=== PATIENT | female | born 1935 | race Caucasian/White ===

== ENCOUNTER 2016-09-02 16:40 | Inpatient (IN) | payer MEDICARE ==
[2016-09-02] MEDS ORDERED: Diltiazem DRIP* 100 MG/100 ML ADDV.BAG IVPB ONE ×3 (17:18→19:06)
[2016-09-02] MEDS ORDERED: Diltiazem IV* 5 MG/ML 5 ML VIAL (for loading dose/IV Push) (25 MG) IV SLOW PU ONE ×2 (17:18→18:58)
[2016-09-02 17:32] LABS: Hematocrit 43 % (35-47); Hemoglobin 13.7 g/dl (12.0-16.0); Mean Corpuscular HGB Conc 32 g/dl (31-36); Mean Corpuscular Hemoglobin 28 pg (27-31); Mean Corpuscular Volume 89 fL (80-97); Mean Platelet Volume 9 um3 (7.4-10.4); Red Blood Count 4.81 10^6/ul (4.0-5.4); Red Cell Distribution Width 16 % (10.5-15); White Blood Count 12.2 10^3/ul (3.5-10.8)
[2016-09-02 17:52] LABS: Albumin 3.8 g/dL (3.2-5.2); BUN/Creatinine Ratio 15.5 (8-20); Calcium 9.7 mg/dL (8.6-10.3); EGFR African American 36.1 (>60); EGFR Non-African American 28.1 (>60); Globulin 2.6 g/dL (2-4); Potassium 4.8 mmol/L (3.5-5.0); Total Bilirubin 0.7 mg/dL (0.2-1.0); Total Protein 6.4 g/dL (6.4-8.9)
--- NOTE | 2016-09-02 17:53 | RAD ---
INDICATION: Chest pain COMPARISON: Most recent chest x-ray dated June 17, 2016 TECHNIQUE: Single AP portable view of the chest was obtained. FINDINGS: Image quality is compromised due to the relative inferiority of a portable chest x-ray. There is mild cardiomegaly that appears advanced when compared to the most recent chest x-ray. There are densities obscuring the bilateral lung bases and causing left bibasilar costophrenic angle blunting. Pulmonary vasculature is engorged and indistinct. Visualized bones are normal for the patient's age. IMPRESSION: Chest x-ray findings are most compatible with exacerbation of congestive heart failure with likely bibasilar pleural effusions.
[2016-09-02 17:55] LABS: Troponin I 0.03 ng/mL (<0.04)
[2016-09-02] MEDS ORDERED: Metoprolol Tartrate IV* 1 MG/ML 5 ML VIAL IV ONE (19:06)
[2016-09-02] MEDS ORDERED: Amiodarone TAB* 200 MG PO ONE (19:16)
[2016-09-02] MEDS ORDERED: LORazepam TAB(*) 1 MG PO PRN (19:19)
[2016-09-02] MEDS ORDERED: HYDROcodone/ACETAMIN 5-325 MG* 1 TAB PO PRN (19:19)
[2016-09-02] MEDS ORDERED: Albuterol HFA INHALER* 8 gm MDI INH PRN (19:19)
[2016-09-02] MEDS ORDERED: Mometasone 220 MCG MDI INH PRN (19:19)
[2016-09-02] MEDS ORDERED: Furosemide IV* 10 MG/ML 10 ML VIAL (100 MG) IV ONE (19:26)
[2016-09-02] MEDS ORDERED: Metoprolol Tartrate IV* 1 MG/ML 5 ML VIAL IV PRN (19:42)
[2016-09-02] MEDS ORDERED: Metoprolol Tartrate IV* 1 MG/ML 5 ML VIAL ONE (19:55)
[2016-09-02 19:57] LABS: Magnesium 2.5 mg/dL (1.9-2.7)
[2016-09-02] MEDS: Magnesium Oxide TAB* 400 MG PO SCH (19:57)
[2016-09-02] MEDS: Ferrous Sulfate TAB* 325 MG PO SCH (19:58)
[2016-09-02 20:04] LABS: TSH (Thyroid Stimulating Horm) 7.18 mcIU/mL (0.34-5.60)
[2016-09-02 21:17] LABS: T4 10.87 g/dL (6.09-12.23)
[2016-09-02 21:26] LABS: Free T4 2.07 ng/dL (0.61-1.12); Total T3 0.55 ng/mL (0.87-1.78)
[2016-09-02] MEDS: buPROPion TAB* 75 MG PO SCH (21:55)
[2016-09-02] MEDS: Calcium Carbonate TAB* 1250 MG (CALCIUM 500 MG) PO SCH (21:55)
[2016-09-02] MEDS: Rivaroxaban TAB(*) 15 MG PO SCH (21:55)
[2016-09-02] MEDS ORDERED: Polyethylene Glycol 3350* 17 GM PACKET PO PRN (22:44)
[2016-09-03] MEDS ORDERED: Digoxin IV* 0.5 MG/2 ML AMP (0.25 MG/ML) IV SLOW PU ONE (00:24)
--- NOTE | 2016-09-03 01:14 | HP ---
MEDICINE HISTORY AND PHYSICAL: DATE OF ADMISSION: 09/02/16 ATTENDING PHYSICIAN: Dr. Joanne Nuñez *(as dictated by Joaquin Villegas, SHITAL) CONSULTING PHYSICIANS: Ke Abraham MD, and Dr. Winn, Cardiology. PRIMARY CARE PHYSICIAN: Dr. Dasilva. CHIEF COMPLAINT: Atrial fibrillation with RVR, sent by Dr. Abraham. HISTORY OF PRESENT ILLNESS: Ms. Opal Ramon is an 81-year-old female with a past medical history of paroxysmal atrial fibrillation, coronary artery disease , aortic stenosis, tachy-jayro syndrome, and COPD, who presents to the ED today from Dr. Abraham's office. The patient reports that she has experienced approximately 1 week of resting heartbeat, arrhythmias, and trouble breathing. The patient denies any chest pain, but states that she has had an ongoing issue with controlling her atrial fibrillation, although she has been approximately 3- 1/2 months without having to come to the hospital. The patient is on amiodarone , which has been under dosing adjustments due to the patient's intolerance of the medication. She was previously here at [facility] in May 2016 with a similar presentation of atrial fibrillation. She states that when she was discharged, at one point she was on amiodarone 100 mg 3 days a week, but has been increased to 100 mg daily, but does not know when this last increase took place. The patient during her last admission did not require cardioversion because she converted on her own. The patient denies any recent illness, fever, chills. She denies chest pain. She denies cough, hemoptysis. She denies any abdominal pain, nausea, vomiting, or diarrhea. She does report that she had a recent injury to her right flank where she twisted and had a fall behind her couch approximately 7 to 10 days ago. She reports that she has bruised ribs and that it was formally painful to take a deep breath, but is now better. She was treating the injury with [place] and lidocaine patches, but reports that as of recently the pain has been greatly improved and has not required her to use lidocaine patches. She also reports constipation from the [place]. She denies any dysuria, focal weakness, sensory loss, visual, hearing, or swallowing complaints. She denies any joint pain, muscle pain, skin rashes, or lesions. She is concerned because she states that she put on approximately 4 pounds over the past week and does report new bilateral lower extremity edema. In the ED, the patient was given a diltiazem bolus of 20 mg, was started on a drip at 5 mg, was titrated up to as high as 50 mg and was referred to the hospitalist for further evaluation. PAST MEDICAL HISTORY: Includes: 1. Paroxysmal atrial fibrillation. 2. History of tachy-jayro syndrome. 3. Coronary artery disease status post bypass and history of PCI. 4. Aortic stenosis. 5. History of mitral regurgitation. 6. Dynamic outflow tract obstruction. 7. History of paroxysmal atrial arrhythmias. 8. COPD, on oxygen at bedtime. 9. Hyperlipidemia. 10. Depression. 11. Anxiety. 12. Hypothyroidism. 13. History of compression fractures. 14. Osteoporosis. HOME MEDICATIONS: 1. Lorazepam 1 mg daily p.r.n. anxiety. 2. Calcium 500 mg b.i.d. 3. [place] 2 tabs q.4 hours p.r.n. 4. Boniva 150 mg monthly. 5. Wellbutrin 75 mg b.i.d. 6. Synthroid 100 mcg q.a.m. 7. Crestor 5 mg daily. 8. Aspirin 81 mg daily. 9. Potassium chloride 40 mEq daily. 10. Rivaroxaban 50 mg in the evening. 11. Magnesium oxide 800 mg q.p.m. 12. Amiodarone 100 mg daily. 13. Furosemide 40 mg weekly. 14. Flovent 2 puffs inhaled daily p.r.n. 15. Albuterol 2 puffs inhaled daily p.r.n. 16. Ferrous sulfate 325 mg b.i.d. 17. Amlodipine 2.5 mg daily. 18. Valsartan 20 mg daily. ALLERGIES: Include CLOPIDOGREL, PENICILLIN, TICLOPIDINE, and DICLOFENAC. FAMILY HISTORY: The patient reports that her mother in her 50's through dementia and father in his 80's from prostate cancer. The patient lost her son over a year ago from an accident. SOCIAL HISTORY: The patient is a former smoker, she quit smoking approximately 30 years ago. She lives at home independently at this time. She states that during most of the year she lives in her [place] house with her daughter, but during the winter months she lives in an apartment by herself. She is currently in this apartment by herself and she is independent of her ADLs. She has 4 children. Her daughter, Rosetta is the primary surrogate decision maker. REVIEW OF SYSTEMS: A 14-point review of systems was completed. All pertinent positives and negatives are included in the HPI. All those not mentioned are negative. PHYSICAL EXAMINATION GENERAL: Ms. Ramon is an 81-year-old female, who is resting in the ED stretcher, in no acute distress. She is alert, cooperative, and very pleasant. VITAL SIGNS: Temperature is 97.9, heart rate 124, respiratory rate 16, blood pressure 122/92, and O2 saturation is 95% on 2 L nasal canula. HEENT: Head is atraumatic, normocephalic. Face is symmetrical. Pupils are equal, round, and reactive to light. Sclerae are anicteric. External ears and nose are normal. Oral mucosa appears moist. There is no oropharyngeal erythema. NECK: Supple. No JVD noted. No lymphadenopathy noted. CARDIAC: Irregularly irregular rate and rhythm. Rate is very rapid. There is a systolic murmur noted most prominently in the left sternal border. EXTREMITIES: The patient has 2+ lower extremity edema. Distal pulses are 2+ bilaterally. RESPIRATORY: Lungs are clear to auscultation, though there are fine crackles in the bases. Breath sounds are diminished. ABDOMEN: Soft, nontender, nondistended. MUSCULOSKELETAL: There is no clubbing or cyanosis. The patient has full range of motion. SKIN: Appears grossly intact. NEURO: Cranial nerves II through XII are grossly intact with no focal deficits. The patient is able to move all extremities. Sensation is intact to light touch in lower extremities. PSYCH: She is alert and oriented x3. Affect is appropriate. LABORATORY DATA AND DIAGNOSTIC STUDIES: CBC: WBC 12.2, hemoglobin 13.7, hematocrit 43, platelet count 406, INR 1.86, PTT 37.6. CMP: Sodium 133, potassium 4.8, chloride 98, carbon dioxide 28, BUN 27, creatinine 1.74, glucose 103, lactic acid 1.3, calcium 9.7, magnesium 2.5, total bilirubin 0.7, AST 18, ALT 18, alk phos 65, total CK 148, CK-MB 5.5, myoglobin 133.6, troponin 0.03, BNP 956, albumin 3.8. EKG shows rapid atrial fibrillation with a rate of 156. Chest x-ray shows findings most compatible with exacerbation of congestive heart failure, likely bibasilar pleural effusions. Old medical records were reviewed. ASSESSMENT AND PLAN: Ms. Rmaon is an 81-year-old female with a past medical history of atrial fibrillation, coronary artery disease, tachy-jayro syndrome and chronic obstructive pulmonary disease, who presents today with atrial fibrillation with rapid ventricular response and what appears to be mild congestive heart failure. She will be admitted to the telemetry floor with the plan as follows: 1. Atrial fibrillation with rapid ventricular response. I did speak with Dr. Winn, who stated that Dr. Abraham dictated a note in Med End. I was able to obtain this note; however, I could not see an assessment and plan, but per my discussion with Dr. Winn and Dr. Nuñez, the patient will be given an additional dose of amiodarone 100 mg and she is currently on 100 mg. We will then increase the dose to 100 mg b.i.d. She will be n.p.o. for expected cardioversion in the morning. At this point in time, the patient has not responded well to diltiazem and it appears from her history that the patient has a history of bradycardia with diltiazem. As part of the side effects, we will discontinue the diltiazem and put the patient on p.r.n. Lopressor. I have already given her one dose of Lopressor here in the ED with good effect. The patient's heart rate has been sustained in the 110s. If necessary, we can also add on digoxin for the patient. The patient will be admitted to telemetry and we will also give her Lasix as well, as she is short of breath and her chest x- ray shows congestion. She also has lower extremity edema that is new. I did not see in Dr. Abraham's notes that the patient recently had an echocardiogram, so I will also go ahead and order an echocardiogram for tomorrow as well. We will continue her Xarelto, magnesium and potassium. 2. Suspect congestive heart failure. We will maintain the patient on daily weights and strict I's and O's. We will give her Lasix this evening and tomorrow and monitor her progress. Obtain echocardiogram. 3. Mild leukocytosis. The patient denies any recent illness. Chest x-ray does not appear to show anything except for acute infiltrates. The patient is afebrile, does not have a cough. I suspect this may be a little chemo reaction to her atrial fibrillation and the stress on her body. We will recheck a CBC in the morning, continue to monitor closely. 4. Acute kidney injury. The patient has a small bump in her creatinine. She does appear to have chronic kidney disease, but her baseline appears to be around 1.00 to 1.29. She is currently 1.74. We will go ahead and hold her valsartan at this time. We are closely monitoring her renal function and she is receiving p.r.n. metoprolol for heart rate reduction. We will closely monitor her renal function. If this does not improve, we will have to continue to renally dose her medications and consider if Xarelto is a good medication for this patient given her renal function. 5. Chronic obstructive pulmonary disease. Continue p.r.n. albuterol. The patient wears oxygen at night, which we will continue. 6. History of hypertension. As previously stated, we will hold her valsartan and given her renal function, we will also hold her amlodipine currently as she is receiving IV Lopressor. 7. Coronary artery disease status post bypass and stenting. Continue aspirin and Xarelto. 8. Hyperlipidemia. Continue statins. 9. Depression. Continue bupropion. 10. Anxiety. Continue p.r.n. lorazepam. Provide supportive care. 11. Hypothyroidism. We will check TSH. In the meantime, we will continue levothyroxine. 12. Rib pain. Continue p.r.n. [place]. 13. FEN. The patient is ordered a heart healthy and no caffeine diet. She will be n.p.o. after midnight for potential cardioversion. 14. DVT prophylaxis. Continue the patient's home Xarelto. 15. Code status. She is currently a full code. I did have an in-depth discussion with the patient and her 2 daughters regarding her code status. At this time, they were unable to make a conclusive decision, but it appears that they are leaning towards a DNR/DNI. They were given the MOLST form and they state that they will read over it and discuss it further. TIME SPENT: Time spent on this admission was approximately 60 minutes, more than half that time was spent [id number] with the patient and her family obtaining history and physical, performing physical examination, and reviewing the plan of care. Plan of care was also reviewed with my attending, Dr. Nñuez, who is in agreement. JOAQUIN VILLEGAS NP CC: Dr. Vidya MD; Dr. Abraham * [id number]/CPS #: [id number] MTDShorty
[2016-09-03] MEDS: Levothyroxine TAB* 100 MCG TAB PO SCH (05:46)
[2016-09-03 06:09] LABS: Hematocrit 42 % (35-47); Hemoglobin 13.4 g/dl (12.0-16.0); Mean Corpuscular HGB Conc 32 g/dl (31-36); Mean Corpuscular Hemoglobin 29 pg (27-31); Mean Corpuscular Volume 90 fL (80-97); Mean Platelet Volume 8 um3 (7.4-10.4); Red Blood Count 4.71 10^6/ul (4.0-5.4); Red Cell Distribution Width 15 % (10.5-15); White Blood Count 10.7 10^3/ul (3.5-10.8)
[2016-09-03 06:20] LABS: BUN/Creatinine Ratio 14.6 (8-20); Calcium 9.1 mg/dL (8.6-10.3); EGFR African American 36.8 (>60); EGFR Non-African American 28.7 (>60); Potassium 4.2 mmol/L (3.5-5.0)
[2016-09-03] MEDS ORDERED: NS 0.9% 1000 ML* 1,000 ML IV SCH ×2 (08:15→13:00)
[2016-09-03] MEDS: Amiodarone TAB* 200 MG PO SCH ×2 (08:37→20:33)
[2016-09-03] MEDS: Atorvastatin* 10 MG TAB PO SCH (08:37)
[2016-09-03] MEDS: buPROPion TAB* 75 MG PO SCH ×2 (08:37→20:33)
[2016-09-03] MEDS: Ferrous Sulfate TAB* 325 MG PO SCH ×2 (08:37→20:33)
[2016-09-03] MEDS: Potassium Chlor TAB* 20 MEQ TAB.ER PO SCH (08:37)
[2016-09-03] MEDS: Aspirin EC Low Dose* 81 MG TAB.EC PO SCH (08:37)
[2016-09-03] MEDS: Calcium Carbonate TAB* 1250 MG (CALCIUM 500 MG) PO SCH ×2 (08:37→20:33)
[2016-09-03] MEDS ORDERED: Furosemide IV* 10 MG/ML 10 ML VIAL (100 MG) IV ONE (09:00)
[2016-09-03] MEDS ORDERED: fentaNYL* 50 MCG/ML 2 ML VIAL (100 MCG VIAL) ONE (09:56)
[2016-09-03] MEDS ORDERED: Midazolam* 1 MG/ML 5 ML VIAL (5 MG) ONE (09:56)
[2016-09-03] MEDS ORDERED: Naloxone* 0.4 MG/ML 1 ML VIAL ONE (09:57)
[2016-09-03] MEDS ORDERED: Flumazenil* 0.1 MG/ML 5 ML MDV ONE (09:57)
--- NOTE | 2016-09-03 10:32 | PN ---
Subjective Date of Service: 09/03/16 Interval History: Patient seen and examined at bedside. She reports improvement in breathing and has noticed that she has better rate control. Denies CP, increased SOB, abd pain , n/v. Plan for cardioversion this AM. No nursing concerns at this time. Telemetry: Atrial fibrillation 110s-120s Past Medical History: Unchanged from Admission Objective Active Medications: Acetaminophen/Hydrocodone Bitart (Oak 5-325 Tab*) 2 tab PO Q4H PRN PRN Reason: PAIN Albuterol (Ventolin Hfa Inhaler*) 2 puff INH DAILY PRN PRN Reason: SHORTNESS OF BREATH Amiodarone HCl (Cordarone Tab*) 100 mg PO BID [facility] Last Admin: 09/03/16 08:37 Dose: 100 mg Aspirin (Aspirin Ec Low Dose*) 81 mg PO DAILY [facility] Last Admin: 09/03/16 08:37 Dose: 81 mg Atorvastatin Calcium (Lipitor*) 10 mg PO DAILY [facility] PRN Reason: Protocol Last Admin: 09/03/16 08:37 Dose: 10 mg Bupropion HCl (Wellbutrin Tab*) 75 mg PO BID [facility] Last Admin: 09/03/16 08:37 Dose: 75 mg Calcium Carbonate (Calcium Carbonate Tab*) 1,250 mg PO BID [facility] Last Admin: 09/03/16 08:37 Dose: 1,250 mg Ferrous Sulfate (Ferrous Sulfate Tab*) 325 mg PO BID [facility] Last Admin: 09/03/16 08:37 Dose: 325 mg Sodium Chloride (Ns 0.9% 1000 Ml*) 1,000 mls @ 100 mls/hr IV PER RATE [facility] Last Admin: 09/03/16 08:41 Dose: 100 mls/hr Levothyroxine Sodium (Synthroid Tab*) 100 mcg PO 0600 [facility] Last Admin: 09/03/16 05:46 Dose: 100 mcg Lorazepam (Ativan Tab(*)) 1 mg PO DAILY PRN PRN Reason: ANXIETY Magnesium Oxide (Magox 400 Tab*) 800 mg PO QPM [facility] Last Admin: 09/02/16 19:57 Dose: 800 mg Metoprolol Tartrate (Lopressor Iv*) 5 mg IV Q4H PRN PRN Reason: BLOOD PRESSURE Last Admin: 09/02/16 21:54 Dose: 5 mg Mometasone Furoate (Asmanex 220 Mcg Mdi *) 2 puff INH BID PRN PRN Reason: SHORTNESS OF BREATH Polyethylene Glycol/Electrolytes (Miralax*) 17 gm PO DAILY PRN PRN Reason: CONSTIPATION Last Admin: 09/02/16 23:36 Dose: 17 gm Potassium Chloride (Klor Con Er Tab*) 40 meq PO DAILY [facility] Last Admin: 09/03/16 08:37 Dose: 40 meq Rivaroxaban (Xarelto(*)) 15 mg PO 1700 [facility] Last Admin: 09/02/16 21:55 Dose: 15 mg Vital Signs 09/02/16 09/02/16 09/02/16 20:30 20:31 20:47 Temperature Pulse Rate 124 Respiratory 16 26 Rate Blood Pressure 97/85 (mmHg) O2 Sat by Pulse 96 Oximetry 09/02/16 09/02/16 09/02/16 21:15 22:32 22:35 Temperature 97.6 F Pulse Rate 142 138 106 Respiratory 18 Rate Blood Pressure 129/82 77/59 80/59 (mmHg) O2 Sat by Pulse 100 Oximetry 09/02/16 09/02/16 09/03/16 22:41 22:46 00:00 Temperature Pulse Rate Respiratory 16 18 Rate Blood Pressure (mmHg) O2 Sat by Pulse 95 Oximetry 09/03/16 09/03/16 09/03/16 00:12 01:15 03:41 Temperature 98.1 F 97.8 F Pulse Rate 73 122 99 Respiratory 16 16 Rate Blood Pressure 103/57 111/79 (mmHg) O2 Sat by Pulse 96 98 Oximetry 09/03/16 09/03/16 07:10 07:45 Temperature 98.2 F Pulse Rate 103 Respiratory 16 16 Rate Blood Pressure 114/71 (mmHg) O2 Sat by Pulse 98 Oximetry Oxygen Devices in Use Now: Nasal Cannula - 2L Appearance: Older female patient, sitting up in bed, in NAD Eyes: PERRLA Ears/Nose/Mouth/Throat: Mucous Membranes Moist Neck: NL Appearance and Movements; NL JVP Respiratory: Symmetrical Chest Expansion and Respiratory Effort, Clear to Auscultation - diminished breath sounds Cardiovascular: - - irregularly irregular rhythm, systolic murmur Abdominal: NL Sounds; No Tenderness; No Distention Extremities: - - BLE edema 1+ Skin: No Rash or Ulcers Neurological: Alert and Oriented x 3 Lines/Tubes/Other Access: Clean, Dry and Intact Peripheral IV Nutrition: Taking PO's Result Diagrams: 09/03/16 05:39 09/03/16 05:39 Assess/Plan/Problems-Billing Assessment: Ms. Ramon is an 81 yo female with a PMH of PAF, CAD, tachy-jayro syndrome, , MR, COPD, HTN, HLD, depression, anxiety, and hypothyroidism who was referred by her meeting/event planner to the ED on 09/02/16 for atrial fibrillation with RVR and CHF. - Patient Problems (1) Atrial fibrillation with RVR Code(s): I48.91 - UNSPECIFIED ATRIAL FIBRILLATION Comment: Better rate control with IV Lopressor Continue amiodarone 100 mg BID Cardioversion today (2) Bilateral lower extremity edema Code(s): R60.0 - LOCALIZED EDEMA Comment: Non-painful, coincides with 4# weight gain over past week. Suspect CHF exacerbation secondary to rapid afib for several days, BNP 956 Echocardiogram pending (3) Leukocytosis Code(s): D72.829 - ELEVATED WHITE BLOOD CELL COUNT, UNSPECIFIED Comment: Mild, now resolved. Suspect leukemoid reaction. (4) Acute kidney injury Code(s): N17.9 - ACUTE KIDNEY FAILURE, UNSPECIFIED Comment: Patient with CKD, creatinine above baseline of 1.00 to 1.29 Hold valsartan and other nephrotoxic medications Renally dose medications (5) Dyslipidemia Code(s): E78.5 - HYPERLIPIDEMIA, UNSPECIFIED Comment: Continue atorvastatin. (6) COPD (chronic obstructive pulmonary disease) Code(s): J44.9 - CHRONIC OBSTRUCTIVE PULMONARY DISEASE, UNSPECIFIED Comment: Stable. Continue PRN albuterol and supplemental O2 per home regimen. (7) HTN (hypertension) Code(s): I10 - ESSENTIAL (PRIMARY) HYPERTENSION Comment: Normotensive with some soft BPs. Hold valsartan with SEVERINO Hold amlodipine while receiving IV Lopressor. (8) Hypothyroidism Code(s): E03.9 - HYPOTHYROIDISM, UNSPECIFIED Comment: TSH and Free T4 both elevated; unclear etiology as patient has been in rapid afib and has had other acute injury recently. Continue current dose of levothyroxine and recommend outpatient follow-up of TSH to determine if dose adjustment is required. (9) Depression Code(s): F32.9 - MAJOR DEPRESSIVE DISORDER, SINGLE EPISODE, UNSPECIFIED Comment: Continue Wellbutrin and supportive care. (10) Anxiety Code(s): F41.9 - ANXIETY DISORDER, UNSPECIFIED Comment: Continue PRN lorazepam and supportive care. (11) DVT prophylaxis Comment: Continue home Xarelto. (12) Full code status Status and Disposition: Inpatient admission.
[2016-09-03 12:32] LABS: PCO2 Arterial 42 mmHg (35-45)
--- NOTE | 2016-09-03 14:05 | CONS ---
CARDIOLOGY CONSULTATION: DATE OF CONSULT: 09/03/16 REASON FOR CONSULT: Atrial fibrillation. CHIEF COMPLAINT: Palpitations and lower extremity edema. HISTORY OF PRESENT ILLNESS: Ms. Ramon is an 81-year-old woman followed by Dr. Ke Abraham. 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 The patient has been on amiodarone for an extended period of time and several months ago, the dose was decreased further, based on Dr. Abraham's notes due to lethargy and imbalance. The patient denies any recent fevers, chills, sweats. She denies any significant alcohol intake. With irregular rhythm, she has noted that she is much more winded with stairs and her leg swelling started to occur after several days. She has had some anorexia. PAST MEDICAL HISTORY: Paroxysmal atrial fibrillation; tachy-jayro syndrome; coronary artery disease; myocardial infarction in 2007, showing a 75% to 90% occlusion of the LAD followed by a 90% lesion in the LAD, insignificant circumflex disease, the right coronary artery is dominant with a 50% to 75% proximal lesion, the patient underwent bypass at that time. She has aortic valve stenosis, mitral insufficiency, dynamic LVOT obstruction; COPD, uses oxygen at night; hypertension; dyslipidemia; hypothyroid disease, long standing ; osteoporosis, compression fractures; kyphoscoliosis; anxiety and depression. PAST SURGICAL HISTORY: Includes knee surgery, 2002; left knee replacement, 2011 ; cataract surgery; broken wrist, 2013; right elbow fracture. MEDICATIONS: Current inpatient medications include: 1. [place]. 2. Ventolin inhaler. 3. Amiodarone increased from 100 mg every other day to 200 mg a day. 4. Aspirin 81 mg a day. 5. Lipitor 10 mg a day. 6. Wellbutrin 75 mg b.i.d. 7. Calcium carbonate 1250 mg b.i.d. 8. Iron sulfate 325 mg b.i.d. 9. Levothyroxine 100 mcg a day (unchanged from admission). 10. Ativan p.r.n. 11. Magnesium oxide 800 mg a day. 12. Lopressor IV p.r.n. 13. Asmanex 2 puffs b.i.d. 14. MiraLAX p.r.n. 15. Potassium chloride 40 mEq a day. 16. Xarelto 15 mg a day. ALLERGIES: She is allergic to VOLTAREN (swelling), TICLID, PENICILLIN (hives), and PLAVIX. FAMILY HISTORY: Significant her mother in her 50s with a diagnosis of melancholia/Alzheimer's. Her father of prostate cancer in his 70s. SOCIAL HISTORY: The patient retired. Has 2 supportive daughters. Lives alone. Stopped smoking in the , rare glass of wine. REVIEW OF SYSTEMS: Significant in that she fell a couple of weeks ago. She said she was reaching backwards and injured the right side of her thorax and she has been taking pain medications for this. She denied fainting or loss of consciousness and said she had a similar accident many years ago when her kids were young and she reached back to the back seat of the car. She has been taking pain medications and since then she has had constipation as well. Review of all systems otherwise negative, see history of present illness. PHYSICAL EXAM: The patient is 5 feet 5 inches, weighs 145 pounds with a BMI of 24. Vitals: Blood pressure 114/71, she is in AFib with rates of 105 to 130, temperature 98.2, oxygen saturation on 2 L nasal cannula 98%. General Appearance: Petite older woman in no acute distress. Kyphoscoliosis noted. Psychologically, calm, cooperative, pleasant. Neurologically, awake, alert, and oriented to person and place. Speech is articulate, follows commands well. No gross motor or sensory deficits on examination in the bed. Skin: Age- appropriate changes, warm and dry without evidence of cyanosis. HEENT: Pupils are equal and round. Mucous membranes moist. Neck without increased JVD. Good carotid pulses without audible bruits. Lungs are clear with good effort. No wheezes, rales, or rhonchi. Coronary: S1, S2, irregularly irregular with a soft systolic murmur in the right upper sternal border. Abdomen: Active bowel sounds, soft, nontender. No hepatosplenomegaly appreciated. Lower extremity showed trace to 1+ edema in the lower legs. DIAGNOSTIC STUDIES/LAB DATA: The patient's 12 lead ECG on admission, 09/02/16, at 1700 confirms atrial fibrillation with a rapid ventricular rate of 156 beats a minute, QRS axis of 0, normal intraventricular conduction time, and subtle ST changes in the lateral leads. Outpatient studies include an echo from 2013 showing dynamic left ventricular outflow tract obstruction, ejection fraction 65%, mild aortic stenosis, mild-to- moderate mitral insufficiency, moderate tricuspid insufficiency, PA pressure 43 mmHg. White count 10.7, hemoglobin 13.4, hematocrit 42, and platelets 320. INR 1.86, PTT of 37.6. Sodium 137, potassium 4.2, chloride 101, bicarb 27, BUN 25, creatinine 1.71, glucose 76. Troponin #1 0.03, troponin #2 0.02, troponin #3 0.02. BNP of 956. TSH 7.18, free T4 2.07, and total T3 0.55. Chest x-ray from 09/02/16 reported as congestive heart failure with bibasilar pleural effusions. IMPRESSION AND PLAN: In summary, Ms. Ramon is an 81-year-old woman with a history of paroxysmal atrial fibrillation. By history, she has been in an atrial fibrillation for a week, likely related to decrease in her amiodarone dose to very low doses several months ago combined with age and chronic obstructive pulmonary disease. The patient states she has been hinduism about taking her Xarelto, so we will plan on electrical cardioversion, her amiodarone dose has been increased already and will continue loading. Her thyroids are mildly off which may be a combination of her underlying thyroid disorder combined with chronic amiodarone use and I will leave management of that to the hospitalist. Further recommendations will be made pending her response to the above treatment. For her constipation, the hospitalists are managing this. For her lower extremity edema which concerns her greatly, I reassured her that this would likely resolve following electrical cardioversion. For her atherosclerotic heart disease, her normal troponins are reassuring and this can be continued to be managed medically with risk factor modification. Her valvular heart disease is noted, there is an inpatient transthoracic echo ordered and we will review once completed. CC: Dr. Cameron Dasilva; Dr. Ke Abraham* [id number]/CPS #: [id number] [facility] CENTERShorty
--- NOTE | 2016-09-03 16:20 | ECHO ---
Patient: DOUGLAS RANDOLPH [facility] Rec#: [id number] : 1935 Date: 09/03/2016 Age: 81y Height: 165.1 cm / 65.0 in Weight: 66.22 kg / 145.9 lbs Sex: F BSA: 1.73 Room#: 450 Admit Date#: 09/02/2016 Type: Inpatient Referring: Loren Roman Reading: Suzanne Marie MD Sole Dyer: Adwoa Wagner CS CC: Cameron Dasilva MD CC: Ke Abraham MD Transthoracic Echocardiogram Indication: CHF BP: 111/79 HR: 64 Rhythm: NSR with PACs Findings History: PAF,CAD s/p PCI,,tachy-jayro,COPD,HLD,depression,hypothyroid. Technical Comments: The study quality is good. Completed at 1400. Left Ventricle: The left ventricular chamber size is decreased. Septal wall hypertrophy is observed. Global left ventricular wall motion and contractility are within normal limits. The estimated ejection fraction is 60-65%. The assessment of diastolic function is non-diagnostic.due to annular calcification and equivicol data. Left Atrium: The left atrium is moderate to severely dilated. Right Ventricle: Moderator Band present. The right ventricular cavity size is normal. The right ventricular global systolic function is normal. Right Atrium: The right atrium is moderate to severely dilated. Aortic Valve: The aortic valve is trileaflet. There is trace to mild aortic regurgitation. There is mild aortic stenosis.Confirmed with 2D images on short axis. Highest aortic valve velocity was acquired with Pedoff in apical position. Mitral Valve: There is mitral annular calcification. Moderate mitral leaflet calcification is visualized. There is moderate to severe mitral regurgitation. There is mild to moderate mitral stenosis. mean gradient 2.5 mmHg, MVA 2.6 cm2. Tricuspid Valve: The tricuspid valve leaflets are mildly thickened. There is moderate to severe tricuspid regurgitation. The tricuspid regurgitant jet is extending to dome (back wall of RA). There is evidence of moderate pulmonary hypertension. There is no tricuspid stenosis. Pulmonic Valve: The pulmonic valve appears normal. There is no evidence of pulmonic regurgitation. There is no pulmonic stenosis. Pericardium: The pericardium appears normal. Aorta: There is mild dilatation of the ascending aorta. There is no dilatation of the aortic arch. There is no dilation of the aortic root. Pulmonary Artery: The main pulmonary artery appears normal. Venous: The inferior vena cava appears normal in size. There is a greater than 50% respiratory change in the inferior vena cava dimension. Conclusions The left ventricular chamber size is decreased. Global left ventricular wall motion and contractility are within normal limits. The estimated ejection fraction is 60-65%. The left atrium is moderate to severely dilated. The right ventricular global systolic function is normal. There is mild aortic stenosis. There is trace to mild aortic regurgitation. There is mild to moderate mitral stenosis. There is moderate to severe mitral regurgitation. There is moderate to severe tricuspid regurgitation. There is evidence of moderate pulmonary hypertension: 55 mmHg. Compared with prior echo of 07/07/16, LVOT obstruction not seen in this study, EF is stable, the degree of MR has increased from mild (pt s/p cardioversion from afib today), the degree of TR has increased from moderate. Otherwise not significantly changed. Measurements Name Value Normal Range RVIDd (AP) 2D 2.7 cm (0.9 - 2.6) RVDdMajor (2D) 3.6 cm (2.2 - 4.4) RAd ISD 4CH 5.8 cm (3.4 - 4.9) RA (A4C)W 4.3 cm (2.9 - 4.6) IVSd (2D) 1.7 cm (0.6 - 1) LVPWd (2D) 1 cm (0.6 - 1) LVIDd (2D) 3 cm (3.6 - 5.4) LVIDs (2D) 1.5 cm - LV FS (2D) 49 % (25 - 45) Aortic Annulus 1.9 cm (1.4 - 2.6) Ao root diameter (2D) 2.3 cm (2.1 - 3.5) Ascending Ao 3.5 cm (2.1 - 3.4) Aortic arch 2.3 cm (1.8 - 3.4) LA dimension (AP) 2D 3.4 cm (2.3 - 3.8) LAd ISD 4CH 5.7 cm (2.9 - 5.3) LA ISD 4CH W 5 cm (2.5 - 4.5) Name Value Normal Range LA ESV SP 4CH (A/L) 72 ml - LA ESV SP 2CH (A/L) 66 ml - LA ESV BP (A/L) 74 ml - LA ESV BP (A/L) index 42.82 ml/m2 - LA ESV SP 4CH (MOD) 67 ml - LA ESV SP 2CH (MOD) 66 ml - Name Value Normal Range MV E-wave Vmax 1.6 m/sec - MV deceleration time 301 msec - MV A-wave Vmax 0.9 m/sec - MV E:A ratio 1.88 ratio - LV septal e' Vmax 0.03 m/sec - LV lateral e' Vmax 0.07 m/sec - LV E:e' septal ratio 53.33 ratio - LV E:e' lateral ratio 22.86 ratio - Name Value Normal Range AV Vmax 2.2 m/sec - AV VTI 43.3 cm - AV peak gradient 19.04 mmHg - AV mean gradient 8.22 mmHg - LVOT diameter 1.5 cm - LVOT Vmax 1.2 m/sec - LVOT VTI 25.3 cm - LVOT peak gradient 6.08 mmHg - LVOT mean gradient 2.65 mmHg - SV LVOT 46 ml - JESI (continuity Vmax) 1 cm2 - JESI (continuity VTI) 1 cm2 - AR PHT 560 msec - Name Value Normal Range MV Vmax 1.7 m/sec - MV VTI 53.7 cm - MV peak gradient 11.17 mmHg - MV mean gradient 2.53 mmHg - MV PHT 84 msec - MVA (PHT) 2.6 cm2 - MVA (continuity VTI) 0.9 cm2 - Name Value Normal Range TR Vmax 3.4 m/sec - TR peak gradient 47 mmHg - RAP 8 mmHg - RVSP 55 mmHg - IVC diameter 2.1 cm - Name Value Normal Range PV Vmax 0.7 m/sec - PV peak gradient 2.02 mmHg -
[2016-09-03] MEDS: Rivaroxaban TAB(*) 15 MG PO SCH (16:44)
[2016-09-03] MEDS: Magnesium Oxide TAB* 400 MG PO SCH (16:44)
--- NOTE | 2016-09-03 21:20 | CARD ---
ELECTRICAL CARDIOVERSION NOTE: DATE OF PROCEDURE: 09/03/15 PROCEDURE: Electrical cardioversion. DIAGNOSIS: Atrial fibrillation. The indications, risks and benefits of the procedure had been discussed with the patient and her daughter and they were amendable to proceeding. A time-out procedure was called. The patient received a total of 3 mg of Versed and 25 mcg of fentanyl. Using AP patches, 120 joules of energy was synchronously delivered across the chest wall with successful cardioversion to sinus rhythm. She is currently in sinus rhythm with PACs at an average rate of 60 beats a minute. She is hemodynamically stable, mild drop in oxygenation which is responding to oxygen. CONCLUSION: Successful electrical cardioversion. See Cardiology consultation for additional details of presentation. CC: Cameron Dasilva MD; Ke Abraham MD* [id number]/CPS #: [id number] MTDD
[2016-09-04] MEDS: Levothyroxine TAB* 100 MCG TAB PO SCH (06:01)
[2016-09-04 06:17] LABS: BUN/Creatinine Ratio 12.8 (8-20); Calcium 8.2 mg/dL (8.6-10.3); EGFR Non-African American 31.9 (>60); Magnesium 2.3 mg/dL (1.9-2.7); Potassium 3.9 mmol/L (3.5-5.0)
[2016-09-04] MEDS: buPROPion TAB* 75 MG PO SCH ×2 (08:14→21:06)
[2016-09-04] MEDS: Aspirin EC Low Dose* 81 MG TAB.EC PO SCH (08:14)
[2016-09-04] MEDS: Potassium Chlor TAB* 20 MEQ TAB.ER PO SCH (08:15)
[2016-09-04] MEDS: Atorvastatin* 10 MG TAB PO SCH (08:15)
[2016-09-04] MEDS: Ferrous Sulfate TAB* 325 MG PO SCH ×2 (08:15→21:06)
[2016-09-04] MEDS: Calcium Carbonate TAB* 1250 MG (CALCIUM 500 MG) PO SCH ×2 (08:15→21:06)
[2016-09-04] MEDS ORDERED: Furosemide IV* 10 MG/ML 2 ML VIAL (20 MG) IV SLOW PU ONE ×2 (08:29→15:46)
[2016-09-04] MEDS ORDERED: Amiodarone TAB* 200 MG PO ONE (09:00)
[2016-09-04] MEDS: Amiodarone TAB* 200 MG PO SCH ×2 (09:16→21:06)
[2016-09-04] MEDS: Magnesium Oxide TAB* 400 MG PO SCH (16:32)
[2016-09-04] MEDS: Rivaroxaban TAB(*) 15 MG PO SCH (16:32)
--- NOTE | 2016-09-04 18:30 | PN ---
Subjective Date of Service: 09/04/16 Interval History: Patient seen and examined at bedside. She reports feeling well today except for dyspnea with exertion. She is concerned that her O2 sat was 80% after ambulating in ken. She denies CP, abd pain, n/v. She received Lasix earlier ( ordered by cardiology) and feels she would benefit from one more evening to monitor recovery. Telemetry: SR 60s Family History: Unchanged from Admission Social History: Unchanged from Admission Past Medical History: Unchanged from Admission Objective Active Medications: Acetaminophen/Hydrocodone Bitart ([place] 5-325 Tab*) 2 tab PO Q4H PRN PRN Reason: PAIN Albuterol (Ventolin Hfa Inhaler*) 2 puff INH DAILY PRN PRN Reason: SHORTNESS OF BREATH Amiodarone HCl (Cordarone Tab*) 100 mg PO BID [facility] Last Admin: 09/04/16 09:16 Dose: 100 mg Aspirin (Aspirin Ec Low Dose*) 81 mg PO DAILY [facility] Last Admin: 09/04/16 08:14 Dose: 81 mg Atorvastatin Calcium (Lipitor*) 10 mg PO DAILY [facility] PRN Reason: Protocol Last Admin: 09/04/16 08:15 Dose: 10 mg Bupropion HCl (Wellbutrin Tab*) 75 mg PO BID [facility] Last Admin: 09/04/16 08:14 Dose: 75 mg Calcium Carbonate (Calcium Carbonate Tab*) 1,250 mg PO BID [facility] Last Admin: 09/04/16 08:15 Dose: 1,250 mg Ferrous Sulfate (Ferrous Sulfate Tab*) 325 mg PO BID [facility] Last Admin: 09/04/16 08:15 Dose: 325 mg Levothyroxine Sodium (Synthroid Tab*) 100 mcg PO 0600 [facility] Last Admin: 09/04/16 06:01 Dose: 100 mcg Lorazepam (Ativan Tab(*)) 1 mg PO DAILY PRN PRN Reason: ANXIETY Magnesium Oxide (Magox 400 Tab*) 800 mg PO QPM [facility] Last Admin: 09/04/16 16:32 Dose: 800 mg Metoprolol Tartrate (Lopressor Iv*) 5 mg IV Q4H PRN PRN Reason: BLOOD PRESSURE Last Admin: 09/02/16 21:54 Dose: 5 mg Mometasone Furoate (Asmanex 220 Mcg Mdi *) 2 puff INH BID PRN PRN Reason: SHORTNESS OF BREATH Last Admin: 09/04/16 10:26 Dose: 2 puff Polyethylene Glycol/Electrolytes (Miralax*) 17 gm PO DAILY PRN PRN Reason: CONSTIPATION Last Admin: 09/02/16 23:36 Dose: 17 gm Potassium Chloride (Klor Con Er Tab*) 40 meq PO DAILY [facility] Last Admin: 09/04/16 08:15 Dose: 40 meq Rivaroxaban (Xarelto(*)) 15 mg PO 1700 [facility] Last Admin: 09/04/16 16:32 Dose: 15 mg Vital Signs 09/03/16 09/03/16 09/04/16 19:48 20:00 00:59 Temperature 97.9 F 97.7 F Pulse Rate 60 62 Respiratory 16 20 Rate Blood Pressure 103/47 121/65 (mmHg) O2 Sat by Pulse 95 95 Oximetry 09/04/16 09/04/16 09/04/16 03:39 07:15 07:54 Temperature 97.8 F 97.5 F Pulse Rate 61 58 Respiratory 20 16 16 Rate Blood Pressure 99/49 123/61 (mmHg) O2 Sat by Pulse 94 97 Oximetry 09/04/16 09/04/16 09/04/16 11:32 11:38 15:19 Temperature 97.5 F 97.9 F Pulse Rate 60 62 Respiratory 22 16 Rate Blood Pressure 129/64 133/71 (mmHg) O2 Sat by Pulse 95 99 Oximetry Oxygen Devices in Use Now: Nasal Cannula - 2L Appearance: Female patient, sitting up in chair, in NAD Eyes: PERRLA Ears/Nose/Mouth/Throat: Mucous Membranes Moist Neck: NL Appearance and Movements; NL JVP Respiratory: Symmetrical Chest Expansion and Respiratory Effort, Clear to Auscultation - bibasilar rales Cardiovascular: RRR - with soft systolic murmur Abdominal: NL Sounds; No Tenderness; No Distention Extremities: No Clubbing, Cyanosis - +1 BLE edema Skin: No Rash or Ulcers Neurological: Alert and Oriented x 3 Lines/Tubes/Other Access: Clean, Dry and Intact Peripheral IV Result Diagrams: 09/03/16 05:39 09/04/16 05:48 Assess/Plan/Problems-Billing Assessment: Ms. Ramon is an 81 yo female with a PMH of PAF, CAD, tachy-jayro syndrome, , MR, COPD, HTN, HLD, depression, anxiety, and hypothyroidism who was referred by her peanut shaker to the ED on 09/02/16 for atrial fibrillation with RVR and CHF. - Patient Problems (1) Atrial fibrillation with RVR Code(s): I48.91 - UNSPECIFIED ATRIAL FIBRILLATION Comment: Now in SR s/p cardioversion Patient given additional dose of amiodarone per cardiology Continue amiodarone 100 mg BID (2) Bilateral lower extremity edema Code(s): R60.0 - LOCALIZED EDEMA Comment: Non-painful, coincides with 4# weight gain over past week. Suspect CHF exacerbation secondary to rapid afib for several days, BNP 956 Echocardiogram shows EF 60-65%, mild , mild to moderate MS, moderate to severe MR and TR, moderate pulmonary HTN. (3) Acute kidney injury Code(s): N17.9 - ACUTE KIDNEY FAILURE, UNSPECIFIED Comment: Patient with CKD, creatinine above baseline of 1.00 to 1.29 Hold valsartan and other nephrotoxic medications Renally dose medications Creatinine clearance 29; recheck tomorrow (4) Dyslipidemia Code(s): E78.5 - HYPERLIPIDEMIA, UNSPECIFIED Comment: Continue atorvastatin. (5) COPD (chronic obstructive pulmonary disease) Code(s): J44.9 - CHRONIC OBSTRUCTIVE PULMONARY DISEASE, UNSPECIFIED Comment: Stable. Continue PRN albuterol and supplemental O2 per home regimen. (6) HTN (hypertension) Code(s): I10 - ESSENTIAL (PRIMARY) HYPERTENSION Comment: Normotensive. Hold valsartan with SEVERINO Restart amlodipine. (7) Hypothyroidism Code(s): E03.9 - HYPOTHYROIDISM, UNSPECIFIED Comment: TSH and Free T4 both elevated; unclear etiology as patient has been in rapid afib and has had other acute injury recently. Continue current dose of levothyroxine and recommend outpatient follow-up of TSH to determine if dose adjustment is required. (8) Depression Code(s): F32.9 - MAJOR DEPRESSIVE DISORDER, SINGLE EPISODE, UNSPECIFIED Comment: Continue Wellbutrin and supportive care. (9) Anxiety Code(s): F41.9 - ANXIETY DISORDER, UNSPECIFIED Comment: Continue PRN lorazepam and supportive care. (10) DVT prophylaxis Comment: Continue home Xarelto. (11) Full code status Status and Disposition: Inpatient admission. Anticipate d/c to home tomorrow.
[2016-09-05] MEDS: Levothyroxine TAB* 100 MCG TAB PO SCH (05:31)
[2016-09-05 06:57] LABS: BUN/Creatinine Ratio 13.3 (8-20); Calcium 8.3 mg/dL (8.6-10.3); EGFR African American 45.3 (>60); EGFR Non-African American 35.2 (>60); Potassium 3.9 mmol/L (3.5-5.0)
--- NOTE | 2016-09-05 07:53 | ED ---
Edwina Ascencio Rebecca, scribed for Alcides Rodriguez MD on 09/02/16 at 1707 . Palpitations / Dysrhythmia - HPI Summary HPI Summary: Pt is an 81 y/o F who presents to ED c/o an arrhythmia that began gradually 1 week ago. Sx have been intermittent since onset. Pt characterizes arrhythmia as palpitations and an undescribable rhythm. Sx aggravated and alleviated by nothing. Additionally c/o SOB. Daughter additionally mentions edema that began last night. Denies CP, dizziness. Previous similar episodes of arrhythmias, but this one is dissimilar. SHx former smoker (40 years ago). Reports recent injury from twisting of the abdomen, resulting in a cartilage injury in the ribs. Pt was referred to [facility] [place]. Abraham while at her routine visit today. Is on Xarelto. IF THERE IS ONE, PLEASE SEE DICTATION BY DR. RODRIGUEZ FOR FURTHER INFORMATION. - History of Current Complaint Chief Complaint: EDDysrhythmPalp Time Seen by Provider: 09/02/16 17:03 Hx Obtained From: Patient Onset/Duration: Gradual Onset, Lasting Weeks - 1 week ago, Still Present Timing: Intermittent Episodes Lasting: Severity Initially: Moderate Severity Currently: Moderate Character: Fast Aggravating: Nothing Alleviating: Nothing Associated Signs & Symptoms: Shortness of Breath Related History: Similar Episode/Dx as - Previous arrhythmias, this one is "different" from others - Allergy/Home Medications Allergies/Adverse Reactions: Allergies Allergy/AdvReac Type Severity Reaction Status Date / Time Diclofenac [From Voltaren] Allergy Severe Swelling Verified 11/06/14 13:41 Of Face,Lips,& Throat Ticlopidine [From Ticlid] Allergy Severe Unknown Verified 11/06/14 13:41 Reaction Details Penicillins Allergy Intermediate Hives Verified 11/06/14 13:41 Clopidogrel [From Plavix] Allergy Unknown Unknown Verified 11/06/14 13:41 Reaction Details Home Medications: Home Medications Albuterol Sulfate [Proair Respiclick] 2 puff INH DAILY PRN 09/02/16 [History Confirmed 09/02/16] Amiodarone HCl [Amiodarone HCl-] 100 mg PO DAILY 09/02/16 [History Confirmed 11/14] Aspirin EC Low Dose* [Ecotrin EC Low Dose*] 81 mg PO DAILY 09/02/16 [History Confirmed 09/02/16] Calcium 500 mg PO BID 09/02/16 [History Confirmed 09/02/16] Ferrous Sulfate TAB* 325 mg PO BID 09/02/16 [History Confirmed 09/02/16] Furosemide TAB* [Lasix TAB*] 40 mg PO WEEKLY 09/02/16 [History Confirmed ] Ibandronate TAB(NF) [Boniva(NF)] 150 mg PO MONTHLY 09/02/16 [History Confirmed 09/02/16] LORazepam TAB(*) [Ativan TAB(*)] 1 mg PO DAILY PRN 09/02/16 [History Confirmed 09/02/16] Levothyroxine TAB* [Synthroid TAB*] 100 mcg PO QAM 09/02/16 [History Confirmed 09/02/16] Rosuvastatin (NF) [Crestor (NF)] 5 mg PO DAILY 09/02/16 [History Confirmed 09/02] Valsartan TAB* [Diovan TAB*] 20 mg PO DAILY 09/02/16 [History Confirmed 09/02/16 ] amLODIPine TAB* [Norvasc TAB*] 2.5 mg PO DAILY 09/02/16 [History Confirmed 09/02] buPROPion TAB* [Wellbutrin TAB*] 75 mg PO BID 09/02/16 [History Confirmed ] PMH/Surg Hx/FS Hx/Imm Hx Endocrine/Hematology History: Reports: Hx Anticoagulant Therapy - xarelto, Hx Thyroid Disease Denies: Hx Blood Disorders, Hx Blood Transfusions, Hx Bone Marrow Disease, Hx Diabetes, Hx Systemic Lupus Erythematosus, Hx Sickle Cell Disease, Hx Anemia , Hx Unexplained Bleeding, Other Endocrine/Hematological Disorders Cardiovascular History: Reports: Hx Angioplasty, Hx Coronary Artery Disease, Hx Hypercholesterolemia, Hx Hypertension, Hx Valvular Heart Disease, Other Cardiovascular Problems/Disorders Denies: Hx Aneurysm, Hx Angina, Hx Auto Implanted Cardiovert Defib, Hx Cardiac Arrest, Hx Cardiomegaly, Hx Congenital Heart Disease, Hx Congestive Heart Failure, Hx Deep Vein Thrombosis, Hx Embolism, Hx Hypotension, Hx Pacemaker/ICD, Hx Peripheral Vascular Disease, Hx Rheumatic Fever, Hx Syncope Respiratory History: Reports: Hx Chronic Obstructive Pulmonary Disease (COPD), Hx Pneumonia, Other Respiratory Problems/Disorders Denies: Hx Asthma, Hx Chronic Bronchitis, Hx Cystic Fibrosis, Hx Lung Cancer , Hx Pleural Effusion, Hx Pulmonary Edema, Hx Pulmonary Embolism, Hx Seasonal Allergies, Hx Sleep Apnea Musculoskeletal History: Reports: Hx Back Problems, Other Musculoskeletal History - compression fracture to thoracic spine Denies: Hx Arthritis, Hx Bursitis, Hx Congenital Bone Abnormalities, Hx Fibromyalgia, Hx Gout, Hx Orthopedic Injury, Hx Osteoporosis, Hx Scoliosis, Hx Tendonitis Sensory History: Reports: Hx Cataracts, Hx Contacts or Glasses, Hx Vision Problem Denies: Hx Eye Injury, Hx Eye Prosthesis, Hx Glaucoma, Hx Legally Blind, Hx Macular Degeneration, Hx Deafness, Hx Hearing Aid, Hx Hearing Problem, Other Sensory Impairments Opthamlomology History: Reports: Hx Cataracts, Hx Contacts or Glasses, Hx Vision Problem Denies: Hx Eye Injury, Hx Eye Prosthesis, Hx Glaucoma, Hx Legally Blind, Hx Macular Degeneration, Other Sensory Impairments Neurological History: Denies: Hx Headaches, Hx Transient Ischemic Attacks (TIA) Psychiatric History: Reports: Hx Anxiety - Cancer History Hx Chemotherapy: No Hx Radiation Therapy: No Hx Palliative Cancer Treatment: No - Surgical History Surgery Procedure, Year, and Place: 2011 LEFT TOTAL KNEE [id number] CARDIAC STENT [id number] 4 CARDIAC STENTS [id number], CABG x1 [place], ROBOTIC CHEST SURGERY 2013 Hx Anesthesia Reactions: No Infectious Disease History: No Infectious Disease History: Reports: Hx Hepatitis - Hepatitis 50 years ago Denies: Hx Clostridium Difficile, Hx Human Immunodeficiency Virus (HIV), Hx of Known/Suspected MRSA, Hx Shingles, Hx Tuberculosis, Hx Known/Suspected VRE, Hx Known/Suspected VRSA, History Other Infectious Disease, Traveled Outside the in Last 30 Days - Family History Known Family History: Negative: Cardiac Disease, Hypertension, Diabetes - Social History Alcohol Use: None Alcohol Amount: 1 GLASS/DAY Substance Use Type: Reports: None Smoking Status (MU): Former Smoker Type: Cigarettes Amount Used/How Often: 1PPD 30 YRS Length of Time of Smoking/Using Tobacco: 40 Have You Smoked in the Last Year: No Review of Systems - ROS Summary Review of Systems Summary: IF THERE IS ONE, PLEASE SEE DICTATION BY DR. RODRIGUEZ FOR FURTHER INFORMATION. Positive: Palpitations. Negative: Chest Pain Positive: Shortness Of Breath, Other Positive: Edema Neurological: Other - Denies dizziness All Other Systems Reviewed And Are Negative: Yes Physical Exam - Summary Physical Exam Summary: GENERAL: Awake, alert, oriented, no acute distress, very pleasant HEAD/FACE: Head is normocephalic, atraumatic EYES: Anicteric sclera, clear conjunctiva ENT: Mucous membranes moist, no erythema, no discharge, no lesions, neck is supple, trachea is midline, no JVD CARDIAC: IRR, tachycardic, S1, S2, no rub, no murmur, no gallop, 2+ radial and pedal pulses bilaterally RESPIRATORY: Clear to auscultation bilaterally with no rales, rhonchi, or wheezes, non-tender ABDOMEN: Bowel sounds positive, no bruit, soft, non-tender, no CVA tenderness EXTREMITIES: Warm, dry, moving all extremities in a grossly normal manner, 1+ bilateral edema NEUROLOGICAL: Mood is appropriate, moving all extremities in a grossly normal manner IF THERE IS ONE, PLEASE SEE DICTATION BY DR. RODRIGUEZ FOR FURTHER INFORMATION. Triage Information Reviewed: Yes Vital Signs On Initial Exam: Initial Vitals Temp Pulse Resp BP Pulse Ox 97.9 F 79 16 122/80 95 09/02/16 16:51 09/02/16 16:51 09/02/16 16:51 09/02/16 16:51 09/02/16 16:51 Vital Signs Reviewed: Yes Diagnostics - Vital Signs Vital Signs Temp Pulse Resp BP Pulse Ox 09/02/16 16:51 97.9 F 79 16 122/80 95 - Laboratory Lab Results: Lab Results 09/02/16 09/02/16 09/02/16 Range/Units 17:15 17:15 17:15 WBC 12.2 H (3.5-10.8) 10^3/ul RBC 4.81 (4.0-5.4) 10^6/ul Hgb 13.7 (12.0-16.0) g/dl Hct 43 (35-47) % MCV 89 (80-97) fL MCH 28 (27-31) pg MCHC 32 (31-36) g/dl RDW 16 H (10.5-15) % Plt Count 406 (150-450) 10^3/ul MPV 9 (7.4-10.4) um3 Neut % (Auto) 82.7 (38-83) % Lymph % (Auto) 11.3 L (25-47) % [place] % (Auto) 4.8 (1-9) % Eos % (Auto) 0.6 (0-6) % Baso % (Auto) 0.6 (0-2) % Absolute Neuts (auto) 10.1 H (1.5-7.7) 10^3/ul Absolute Lymphs (auto) 1.4 (1.0-4.8) 10^3/ul Absolute Monos (auto) 0.6 (0-0.8) 10^3/ul Absolute Eos (auto) 0.1 (0-0.6) 10^3/ul Absolute Basos (auto) 0.1 (0-0.2) 10^3/ul Absolute Nucleated RBC 0.01 10^3/ul Nucleated RBC % 0.1 INR (Anticoag Therapy) 1.86 H (0.89-1.11) APTT 37.6 H (26.0-36.3) seconds Sodium 133 (133-145) mmol/L Potassium 4.8 (3.5-5.0) mmol/L Chloride 98 L (101-111) mmol/L Carbon Dioxide 28 (22-32) mmol/L Anion Gap 7 (2-11) mmol/L BUN 27 H (6-24) mg/dL Creatinine 1.74 H (0.51-0.95) mg/dL Est GFR ( Amer) 36.1 (>60) Est GFR (Non-Af Amer) 28.1 (>60) BUN/Creatinine Ratio 15.5 (8-20) Glucose 103 H (70-100) mg/dL Lactic Acid (0.5-2.0) mmol/L Calcium 9.7 (8.6-10.3) mg/dL Magnesium 2.5 (1.9-2.7) mg/dL Total Bilirubin 0.70 (0.2-1.0) mg/dL AST 18 (13-39) U/L ALT 18 (7-52) U/L Alkaline Phosphatase 65 (34-104) U/L Total Creatine Kinase 148 (10-223) U/L CK-MB (CK-2) 5.5 (0.6-6.3) ng/mL Myoglobin 133.6 H (14.3-65.8) ng/mL Troponin I 0.03 (<0.04) ng/mL B-Natriuretic Peptide ( - 100) pg/mL Total Protein 6.4 (6.4-8.9) g/dL Albumin 3.8 (3.2-5.2) g/dL Globulin 2.6 (2-4) g/dL Albumin/Globulin Ratio 1.5 (1-3) TSH 7.18 H (0.34-5.60) mcIU/mL Free T4 2.07 H (0.61-1.12) ng/dL Thyroxine (T4) 10.87 (6.09-12.23) g/dL Total T3 0.55 L (0.87-1.78) ng/mL 09/02/16 09/02/16 Range/Units 17:15 17:15 WBC (3.5-10.8) 10^3/ul RBC (4.0-5.4) 10^6/ul Hgb (12.0-16.0) g/dl Hct (35-47) % MCV (80-97) fL MCH (27-31) pg MCHC (31-36) g/dl RDW (10.5-15) % Plt Count (150-450) 10^3/ul MPV (7.4-10.4) um3 Neut % (Auto) (38-83) % Lymph % (Auto) (25-47) % [place] % (Auto) (1-9) % Eos % (Auto) (0-6) % Baso % (Auto) (0-2) % Absolute Neuts (auto) (1.5-7.7) 10^3/ul Absolute Lymphs (auto) (1.0-4.8) 10^3/ul Absolute Monos (auto) (0-0.8) 10^3/ul Absolute Eos (auto) (0-0.6) 10^3/ul Absolute Basos (auto) (0-0.2) 10^3/ul Absolute Nucleated RBC 10^3/ul Nucleated RBC % INR (Anticoag Therapy) (0.89-1.11) APTT (26.0-36.3) seconds Sodium (133-145) mmol/L Potassium (3.5-5.0) mmol/L Chloride (101-111) mmol/L Carbon Dioxide (22-32) mmol/L Anion Gap (2-11) mmol/L BUN (6-24) mg/dL Creatinine (0.51-0.95) mg/dL Est GFR ( Amer) (>60) Est GFR (Non-Af Amer) (>60) BUN/Creatinine Ratio (8-20) Glucose (70-100) mg/dL Lactic Acid 1.3 (0.5-2.0) mmol/L Calcium (8.6-10.3) mg/dL Magnesium (1.9-2.7) mg/dL Total Bilirubin (0.2-1.0) mg/dL AST (13-39) U/L ALT (7-52) U/L Alkaline Phosphatase (34-104) U/L Total Creatine Kinase (10-223) U/L CK-MB (CK-2) (0.6-6.3) ng/mL Myoglobin (14.3-65.8) ng/mL Troponin I (<0.04) ng/mL B-Natriuretic Peptide 956 H ( - 100) pg/mL Total Protein (6.4-8.9) g/dL Albumin (3.2-5.2) g/dL Globulin (2-4) g/dL Albumin/Globulin Ratio (1-3) TSH (0.34-5.60) mcIU/mL Free T4 (0.61-1.12) ng/dL Thyroxine (T4) (6.09-12.23) g/dL Total T3 (0.87-1.78) ng/mL Result Diagrams: 09/03/16 05:39 09/05/16 05:46 Lab Statement: Any lab studies that have been ordered have been reviewed, and results considered in the medical decision making process. - Radiology CXR Radiology Interpretation Completed By: Radiologist - Chest x-ray findings are most compatible with exacerbation of congestive heart failure with likely bibasilar pleural effusions. - EKG 1708 Cardiac Rate: Tachycardia - 151 bpm EKG Rhythm: Atrial Fibrillation - A fib with RVR Course/Dx - Diagnoses Provider Diagnoses: Atrial fibrillation with RVR - Physician Notifications Discussed Care Of Patient With: Dr. Jimenez, hospitalist, at 1825 who advised consultation with Dr. Cruz. Dr. Cruz, hospitalist, at 1836, who agrees to admit pt. Discharge - Discharge Plan Condition: Fair Disposition: ADMITTED TO [facility] The documentation as recorded by the Edwina martell Rebecca accurately reflects the service I personally performed and the decisions made by , Alcides Rodriguez MD.
[2016-09-05] MEDS: Amiodarone TAB* 200 MG PO SCH (08:08)
[2016-09-05] MEDS: buPROPion TAB* 75 MG PO SCH (08:14)
[2016-09-05] MEDS: Calcium Carbonate TAB* 1250 MG (CALCIUM 500 MG) PO SCH (08:14)
[2016-09-05] MEDS: Ferrous Sulfate TAB* 325 MG PO SCH (08:14)
[2016-09-05] MEDS: Atorvastatin* 10 MG TAB PO SCH (08:14)
[2016-09-05] MEDS: Potassium Chlor TAB* 20 MEQ TAB.ER PO SCH (08:14)
[2016-09-05] MEDS: Aspirin EC Low Dose* 81 MG TAB.EC PO SCH (08:14)
[2016-09-05 08:21] VITALS: BP 122/83
[2016-09-05] MEDS ORDERED: Furosemide IV* 10 MG/ML 2 ML VIAL (20 MG) IV SLOW PU ONE (08:24)
[2016-09-05] MEDS ORDERED: amLODIPine TAB* 5 MG PO SCH (09:00)
--- NOTE | 2016-09-05 12:11 | DCNOTE ---
Subjective Date of Service: 09/05/16 Interval History: Patient seen and examined at bedside. She denies CP, SOB, abd pain, n/v. She is eager to go home. She reports her legs "look normal again." She does express concern that she still becomes more easily fatigued and SOB with exertion. Patient is able to ambulate in the halls but does feel SOB following the episodes and has had noted decreased O2 sats. She is able to perform ADLs independently but requires more frequent rest. Family History: Unchanged from Admission Social History: Unchanged from Admission Past Medical History: Unchanged from Admission Objective Active Medications: Acetaminophen/Hydrocodone Bitart ([place] 5-325 Tab*) 2 tab PO Q4H PRN PRN Reason: PAIN Last Admin: 09/05/16 05:34 Dose: 2 tab Albuterol (Ventolin Hfa Inhaler*) 2 puff INH DAILY PRN PRN Reason: SHORTNESS OF BREATH Amiodarone HCl (Cordarone Tab*) 100 mg PO BID [facility] Last Admin: 09/05/16 08:08 Dose: 100 mg Amlodipine Besylate (Norvasc Tab*) 2.5 mg PO DAILY [facility] Last Admin: 09/05/16 08:09 Dose: 2.5 mg Aspirin (Aspirin Ec Low Dose*) 81 mg PO DAILY [facility] Last Admin: 09/05/16 08:14 Dose: 81 mg Atorvastatin Calcium (Lipitor*) 10 mg PO DAILY [facility] PRN Reason: Protocol Last Admin: 09/05/16 08:14 Dose: 10 mg Bupropion HCl (Wellbutrin Tab*) 75 mg PO BID [facility] Last Admin: 09/05/16 08:14 Dose: 75 mg Calcium Carbonate (Calcium Carbonate Tab*) 1,250 mg PO BID [facility] Last Admin: 09/05/16 08:14 Dose: 1,250 mg Ferrous Sulfate (Ferrous Sulfate Tab*) 325 mg PO BID [facility] Last Admin: 09/05/16 08:14 Dose: 325 mg Levothyroxine Sodium (Synthroid Tab*) 100 mcg PO 0600 [facility] Last Admin: 09/05/16 05:31 Dose: 100 mcg Lorazepam (Ativan Tab(*)) 1 mg PO DAILY PRN PRN Reason: ANXIETY Magnesium Oxide (Magox 400 Tab*) 800 mg PO QPM [facility] Last Admin: 09/04/16 16:32 Dose: 800 mg Metoprolol Tartrate (Lopressor Iv*) 5 mg IV Q4H PRN PRN Reason: BLOOD PRESSURE Last Admin: 09/02/16 21:54 Dose: 5 mg Mometasone Furoate (Asmanex 220 Mcg Mdi *) 2 puff INH BID PRN PRN Reason: SHORTNESS OF BREATH Last Admin: 09/04/16 10:26 Dose: 2 puff Polyethylene Glycol/Electrolytes (Miralax*) 17 gm PO DAILY PRN PRN Reason: CONSTIPATION Last Admin: 09/02/16 23:36 Dose: 17 gm Potassium Chloride (Klor Con Er Tab*) 40 meq PO DAILY [facility] Last Admin: 09/05/16 08:14 Dose: 40 meq Rivaroxaban (Xarelto(*)) 15 mg PO 1700 [facility] Last Admin: 09/04/16 16:32 Dose: 15 mg Vital Signs 09/04/16 09/04/16 09/04/16 15:19 19:28 19:49 Temperature 97.9 F 97.5 F Pulse Rate 62 64 Respiratory 16 16 16 Rate Blood Pressure 133/71 117/50 (mmHg) O2 Sat by Pulse 99 95 Oximetry 09/04/16 09/05/16 09/05/16 23:54 00:00 05:34 Temperature 98.4 F Pulse Rate 65 Respiratory 20 16 Rate Blood Pressure 134/60 (mmHg) O2 Sat by Pulse 94 94 Oximetry 09/05/16 09/05/16 09/05/16 07:34 08:00 08:15 Temperature 97.8 F Pulse Rate 63 Respiratory 18 18 16 Rate Blood Pressure 122/83 (mmHg) O2 Sat by Pulse 93 Oximetry Oxygen Devices in Use Now: Nasal Cannula - 2L Appearance: Female patient, sitting on edge of bed, in NAD Eyes: PERRLA Ears/Nose/Mouth/Throat: Clear Oropharnyx, Mucous Membranes Moist Neck: NL Appearance and Movements; NL JVP Respiratory: Symmetrical Chest Expansion and Respiratory Effort, Clear to Auscultation Cardiovascular: NL Sounds; No Murmurs; No JVD, RRR Abdominal: NL Sounds; No Tenderness; No Distention Extremities: No Edema Neurological: Alert and Oriented x 3, NL Muscle Strength and Tone Lines/Tubes/Other Access: Clean, Dry and Intact Peripheral IV Nutrition: Taking PO's Result Diagrams: 09/03/16 05:39 09/05/16 05:46 Additional Lab and Data: Lab Results 09/02/16 09/02/16 09/02/16 Range/Units 17:15 17:15 17:15 WBC 12.2 H (3.5-10.8) 10^3/ul RBC 4.81 (4.0-5.4) 10^6/ul Hgb 13.7 (12.0-16.0) g/dl Hct 43 (35-47) % MCV 89 (80-97) fL MCH 28 (27-31) pg MCHC 32 (31-36) g/dl RDW 16 H (10.5-15) % Plt Count 406 (150-450) 10^3/ul MPV 9 (7.4-10.4) um3 Neut % (Auto) 82.7 (38-83) % Lymph % (Auto) 11.3 L (25-47) % [place] % (Auto) 4.8 (1-9) % Eos % (Auto) 0.6 (0-6) % Baso % (Auto) 0.6 (0-2) % Absolute Neuts (auto) 10.1 H (1.5-7.7) 10^3/ul Absolute Lymphs (auto) 1.4 (1.0-4.8) 10^3/ul Absolute Monos (auto) 0.6 (0-0.8) 10^3/ul Absolute Eos (auto) 0.1 (0-0.6) 10^3/ul Absolute Basos (auto) 0.1 (0-0.2) 10^3/ul Absolute Nucleated RBC 0.01 10^3/ul Nucleated RBC % 0.1 INR (Anticoag Therapy) 1.86 H (0.89-1.11) APTT 37.6 H (26.0-36.3) seconds Sodium 133 (133-145) mmol/L Potassium 4.8 (3.5-5.0) mmol/L Chloride 98 L (101-111) mmol/L Carbon Dioxide 28 (22-32) mmol/L Anion Gap 7 (2-11) mmol/L BUN 27 H (6-24) mg/dL Creatinine 1.74 H (0.51-0.95) mg/dL Est GFR ( Amer) 36.1 (>60) Est GFR (Non-Af Amer) 28.1 (>60) BUN/Creatinine Ratio 15.5 (8-20) Glucose 103 H (70-100) mg/dL Lactic Acid (0.5-2.0) mmol/L Calcium 9.7 (8.6-10.3) mg/dL Magnesium 2.5 (1.9-2.7) mg/dL Total Bilirubin 0.70 (0.2-1.0) mg/dL AST 18 (13-39) U/L ALT 18 (7-52) U/L Alkaline Phosphatase 65 (34-104) U/L Total Creatine Kinase 148 (10-223) U/L CK-MB (CK-2) 5.5 (0.6-6.3) ng/mL Myoglobin 133.6 H (14.3-65.8) ng/mL Troponin I 0.03 (<0.04) ng/mL B-Natriuretic Peptide ( - 100) pg/mL Total Protein 6.4 (6.4-8.9) g/dL Albumin 3.8 (3.2-5.2) g/dL Globulin 2.6 (2-4) g/dL Albumin/Globulin Ratio 1.5 (1-3) TSH 7.18 H (0.34-5.60) mcIU/mL Free T4 2.07 H (0.61-1.12) ng/dL Thyroxine (T4) 10.87 (6.09-12.23) g/dL Total T3 0.55 L (0.87-1.78) ng/mL 09/02/16 09/02/16 Range/Units 17:15 17:15 WBC (3.5-10.8) 10^3/ul RBC (4.0-5.4) 10^6/ul Hgb (12.0-16.0) g/dl Hct (35-47) % MCV (80-97) fL MCH (27-31) pg MCHC (31-36) g/dl RDW (10.5-15) % Plt Count (150-450) 10^3/ul MPV (7.4-10.4) um3 Neut % (Auto) (38-83) % Lymph % (Auto) (25-47) % [place] % (Auto) (1-9) % Eos % (Auto) (0-6) % Baso % (Auto) (0-2) % Absolute Neuts (auto) (1.5-7.7) 10^3/ul Absolute Lymphs (auto) (1.0-4.8) 10^3/ul Absolute Monos (auto) (0-0.8) 10^3/ul Absolute Eos (auto) (0-0.6) 10^3/ul Absolute Basos (auto) (0-0.2) 10^3/ul Absolute Nucleated RBC 10^3/ul Nucleated RBC % INR (Anticoag Therapy) (0.89-1.11) APTT (26.0-36.3) seconds Sodium (133-145) mmol/L Potassium (3.5-5.0) mmol/L Chloride (101-111) mmol/L Carbon Dioxide (22-32) mmol/L Anion Gap (2-11) mmol/L BUN (6-24) mg/dL Creatinine (0.51-0.95) mg/dL Est GFR ( Amer) (>60) Est GFR (Non-Af Amer) (>60) BUN/Creatinine Ratio (8-20) Glucose (70-100) mg/dL Lactic Acid 1.3 (0.5-2.0) mmol/L Calcium (8.6-10.3) mg/dL Magnesium (1.9-2.7) mg/dL Total Bilirubin (0.2-1.0) mg/dL AST (13-39) U/L ALT (7-52) U/L Alkaline Phosphatase (34-104) U/L Total Creatine Kinase (10-223) U/L CK-MB (CK-2) (0.6-6.3) ng/mL Myoglobin (14.3-65.8) ng/mL Troponin I (<0.04) ng/mL B-Natriuretic Peptide 956 H ( - 100) pg/mL Total Protein (6.4-8.9) g/dL Albumin (3.2-5.2) g/dL Globulin (2-4) g/dL Albumin/Globulin Ratio (1-3) TSH (0.34-5.60) mcIU/mL Free T4 (0.61-1.12) ng/dL Thyroxine (T4) (6.09-12.23) g/dL Total T3 (0.87-1.78) ng/mL Assess/Plan/Problems-Billing Assessment: Ms. Ramon is an 81 yo female with a PMH of PAF, CAD, tachy-jayro syndrome, , MR, COPD, HTN, HLD, depression, anxiety, and hypothyroidism who was referred by her final assembler to the ED on 09/02/16 for atrial fibrillation with RVR and CHF. - Patient Problems (1) Dyspnea Code(s): R06.00 - DYSPNEA, UNSPECIFIED Comment: Patient dyspneic with exertion and is able to recover with rest. Independent with ADLs Previously using O2 at night and now PRN for dyspnea with exertion Patient advised to conserve energy and to monitor symptoms; encouraged to use O2 at home PRN and at night as she is recovering. (2) Atrial fibrillation with RVR Code(s): I48.91 - UNSPECIFIED ATRIAL FIBRILLATION Comment: Now in SR s/p cardioversion Continue amiodarone 100 mg BID Outpatient follow-up with cardiology (3) Bilateral lower extremity edema Code(s): R60.0 - LOCALIZED EDEMA Comment: Resolved. Patient at baseline weight of 141. Suspect CHF exacerbation secondary to rapid afib for several days, BNP 956 Echocardiogram shows EF 60-65%, mild , mild to moderate MS, moderate to severe MR and TR, moderate pulmonary HTN. (4) Acute kidney injury Code(s): N17.9 - ACUTE KIDNEY FAILURE, UNSPECIFIED Comment: Improving back to baseline, follow-up labs as outpatient Patient with CKD, creatinine above baseline of 1.00 to 1.29 Creatinine clearance 30.89 by Cockcroft Gault Calculation (5) Dyslipidemia Code(s): E78.5 - HYPERLIPIDEMIA, UNSPECIFIED Comment: Continue atorvastatin. (6) COPD (chronic obstructive pulmonary disease) Code(s): J44.9 - CHRONIC OBSTRUCTIVE PULMONARY DISEASE, UNSPECIFIED Comment: Stable. Continue PRN albuterol and supplemental O2 per home regimen. Mildly increased O2 needs, continue to monitor and keep follow-up with Dr. Locke (7) HTN (hypertension) Code(s): I10 - ESSENTIAL (PRIMARY) HYPERTENSION Comment: Normotensive, BP trending upward. Continue amlodipine and valsartan. (8) Hypothyroidism Code(s): E03.9 - HYPOTHYROIDISM, UNSPECIFIED Comment: TSH and Free T4 both elevated, with low T3. Suspect chronic amiodarone usage primary cause, but patient also here with acute illness. Continue current dose of levothyroxine and recommend outpatient follow-up of TSH to determine if dose adjustment is required. (9) Depression Code(s): F32.9 - MAJOR DEPRESSIVE DISORDER, SINGLE EPISODE, UNSPECIFIED Comment: Continue Wellbutrin and supportive care. (10) Anxiety Code(s): F41.9 - ANXIETY DISORDER, UNSPECIFIED Comment: Continue PRN lorazepam and supportive care. (11) DVT prophylaxis Comment: Continue home Xarelto. (12) Full code status Status and Disposition: Inpatient admission. D/c to home.
--- NOTE | 2016-09-06 18:40 | DS ---
MEDICINE DISCHARGE SUMMARY: DATE OF ADMISSION: 09/02/16 DATE OF DISCHARGE: 09/05/16 PROVIDER: Joaquin Villegas NP ATTENDING PHYSICIAN: Dr. Xavier Goddard * (as dictated by Joaquin Villegas NP) CONSULTING PHYSICIANS: Ke Abraham MD and Suzanne Marie MD. PRIMARY CARE PHYSICIAN: Dr. Cameron Dasilva. PRIMARY DISCHARGE DIAGNOSES: 1. Atrial fibrillation with rapid ventricular rate. 2. Congestive heart failure exacerbation. 3. Lower extremity edema. 4. Acute on chronic kidney injury. SECONDARY DISCHARGE DIAGNOSES: 1. History of tachy-jayro syndrome. 2. Coronary artery disease, status post bypass and history of PCI. 3. Aortic stenosis. 4. History of mitral regurgitation. 5. Dynamic outflow tract obstruction. 6. History of paroxysmal atrial arrhythmia. 7. Chronic obstructive pulmonary disease, on oxygen at bedtime. 8. Hyperlipidemia. 9. Depression. 10. Anxiety. 11. Hypothyroidism. 12. History of compression fractures. 13. Osteoporosis. MEDICATIONS AT DISCHARGE: 1. Lorazepam 1 mg daily p.r.n. 2. Calcium 500 mg daily. 3. Mchenry 2 tabs q.4 hours p.r.n. 4. Boniva 150 mg monthly. 5. Synthroid 100 mcg daily. 6. Rosuvastatin 5 mg daily. 7. Aspirin 81 mg daily. 8. Potassium chloride 40 mEq daily. 9. Xarelto 15 mg daily. 10. Magnesium oxide 800 mg daily. 11. Furosemide 40 mg weekly. 12. Flovent 2 puffs inhaled daily p.r.n. 13. Albuterol 2 puffs inhaled daily p.r.n. 14. Ferrous sulfate 325 mg b.i.d. 15. Amlodipine 2.5 mg daily. 16. Valsartan 20 mg daily. 17. Bupropion 75 mg b.i.d. 18. Amiodarone 100 mg b.i.d. This is a new increased dosing per Cardiology. DIAGNOSTIC TESTS DURING THE PATIENT'S COURSE OF STAY: Transthoracic echocardiogram. Conclusions: The left ventricular chamber size is decreased. Global left ventricular wall motion and contractility are within normal limits. The estimated ejection fraction is 60% to 65%. The left atrium is moderately to severely dilated. The right ventricular global systolic function is normal. There is mild aortic stenosis. There is fhoud-dw-ystl aortic regurgitation. There is miku-qp-qixkvcwv mitral stenosis. There is lnqmcfbw-xm-ccgxko mitral regurgitation. There is pwpiysha-xm-ymlmtn tricuspid regurgitation. There is evidence of moderate pulmonary hypertension 55 mmHg. Compared with prior echo of 07/07/16, LVOT obstruction not seen in the study, EF is stable, the degree of MR has increased from mild (the patient is status post cardioversion from AFib today), the degree of TR has increased from moderate. Otherwise, not significantly changed. Chest x-ray on admission on 09/02/16, showed chest x-ray findings most compatible with exacerbation of congestive heart failure with likely bibasilar pleural effusions. HOSPITAL COURSE OF STAY: For full details, please refer to the H and P, but in summary, Ms. Ramon is an 81-year-old female with a past medical history as stated above, who presented to the ED on 09/02/[address] Abraham's office. The patient reported approximately 1 week of rapid heartbeat, arrhythmias, and trouble breathing. She had been traveling up in [place] prior to this. She also states that she has been having titrations of her amiodarone dose. When she presented to the ED, the patient was found to be in RVR with low response to the diltiazem drip as well as having some pedal edema and shortness of breath. Upon examination of the records, it was found that the patient had a bradycardic reaction to diltiazem, so we did discontinue this and switched the patient to IV Lopressor as well as digoxin. We were able to get her rate control and the following day, the patient underwent cardioversion, which was successful. The patient did convert to sinus rhythm with PACs. We kept her overnight for close observation and did obtain the echocardiogram as previously mentioned. The following morning, the patient was visited by her primary industrial insulator, Dr. Abraham, who recommended furosemide 20 mg IV and who also gave her an additional amiodarone dose that morning. The patient was notably dyspneic with some extended neck veins. This did improve with the Lasix. However, the patient was still concerned because she had increased work of breathing after exertion. The patient was able to ambulate without oxygen around the halls; however, after she got back to her room, it was found that her pulse ox was in the 80s. She received additional dose of 20 of Lasix on the evening of 09/04/16 and again on the morning of 09/05/16 with good effect. The patient's weight has normalized back to her baseline weight of 141. The patient reports that her breathing does feel better but she still become does become dyspneic with exertion. We did discuss that due to the patient's cardiac status and COPD, it may take her some time to recover fully. She does have oxygen at home, which she uses at night and the patient was encouraged to use her oxygen at home, which she is currently using it here, which is p.r.n. She is able to tolerate. Some of the oxygen only requires after exerting herself. Additionally, I did discuss the importance of a low-sodium diet. She does state that she does try to follow this but does have some foods that she likes to eat that do have high-salt content. She stated that she would make a point to be more conscious of her intake. I have also advised her to take a record of her weights and do perform daily weights in order to determine if she will require a more aggressive Lasix dosing in the future. She agreed to this. In terms of the patient's Xarelto, the patient did have some acute kidney injury upon arrival, which did improve following treatment for her AFib and edema. Her creatinine clearance is just above 30, which is sufficient for continuation of Xarelto. I have already discussed with her that. She should follow up this lab next week with her PCP and continue to monitor this in the event that she may need to switch to another agent in the future if her renal function declines further. It appears in my records that her creatinine tends to be at baseline between 1.00 and 1.3. Also, of note, was the patient's thyroid function test, she notably had a TSH of 7.18. Her free T4 is 2.07 and her total T3 of 0.55 given the patient is on amiodarone, which will affect the conversion of T4 to T3, I explained the importance of monitoring her thyroid function test. Because the patient does have a high TSH and free T4, I advised her to have her thyroid function test rechecked again in 4 to 6 weeks and to follow up with her PCP to see what her levels are when she is not in an acute exacerbation of her AFib or CHF. She verbalized understanding of this and agreed to this as well. The patient also has followup in the future with Dr. Locke, so I also advised her to pay attention to her oxygen needs and if her dyspnea persists through the months and does not recover as I expect that should , then this may be something to review with Dr. Locke in terms of additional medications that may add on in order to help with her breathing. The patient and her daughter agreed with this plan. At the time of the discharge, the patient has independently completed ADLs and was able to ambulate in the hallways for several feet without oxygen. She is in sinus rhythm. She is at her baseline weight and has no acute needs. Her blood pressures have normalized and started to trend up; she has been restarted on her amlodipine and valsartan. Again, we advised her to follow up with thyroid function test and BMP in the outpatient setting with her PCP. I have prescribed her Wellbutrin because she states that she is out of this prescription. Additionally, I did encourage her to use her lorazepam when she is anxious in order to help promote get gas exchange and to prevent further shortness of breath. CONCERNS AT DISCHARGE: Ms. Ramon is discharged home on 09/05/16 with a plan to follow up with her PCP next week and Dr. Abraham at the end of the month. DIET: Heart-healthy, low-sodium diet. ACTIVITY: As tolerated. CONDITION: Improved. DISPOSITION: To home. TIME SPENT: Time spent on this discharge was approximately 50 minutes. Again, this is only a brief summary of the patient's hospital course of stay. For full details, please refer to the full medical records. If you have any further questions or require anything further, please feel free to contact me at . JOAQUIN VILLEGAS NP CC: Dr. Dasilva* [id number]/[facility] #: [id number] RENÉ
== END 2016-09-05 12:49 | disposition home or self-care (01) | DRG 309 ==
LOC: ED 16:40 → MEDTELE 20:17
PROVIDERS: ADMIT Pediatrics; ATTEND Internal Medicine
PROC: 5A2204Z Restoration of Cardiac Rhythm, Single (ICD-10-PCS; principal; 2016-09-03 10:00)
DX: I48.0 Paroxysmal atrial fibrillation (principal); I25.810 Atherosclerosis of coronary artery bypass graft(s) without angina pectoris; N17.9 Acute kidney failure, unspecified; I27.2 Other secondary pulmonary hypertension; I50.9 Heart failure, unspecified; I13.0 Hypertensive heart and chronic kidney disease with heart failure and stage 1 through stage 4 chronic kidney disease, or unspecified chronic kidney disease; I49.5 Sick sinus syndrome; N18.9 Chronic kidney disease, unspecified; J44.9 Chronic obstructive pulmonary disease, unspecified; E78.5 Hyperlipidemia, unspecified; F32.9 Major depressive disorder, single episode, unspecified; F41.9 Anxiety disorder, unspecified; D72.829 Elevated white blood cell count, unspecified; M81.0 Age-related osteoporosis without current pathological fracture; I08.0 Rheumatic disorders of both mitral and aortic valves; Z79.82 Long term (current) use of aspirin; Z79.899 Other long term (current) drug therapy; Z88.0 Allergy status to penicillin; Z99.81 Dependence on supplemental oxygen; Z88.8 Allergy status to other drugs, medicaments and biological substances; Z79.01 Long term (current) use of anticoagulants; Z80.42 Family history of malignant neoplasm of prostate; Z87.891 Personal history of nicotine dependence; Z98.61 Coronary angioplasty status
CPT/HCPCS: 36415; 36600; 71010; 80048; 80053; 82550; 82553; 82803; 83605; 83735; 83874; 83880; 84436; 84439; 84443; 84479; 84484; 85025; 85610; 85730; 92960; 93005; 93306; 94760; 99285; A9270-GY; J1160; J1940; J2250; J2310; J3010; J3490

== ENCOUNTER 2017-03-19 03:32 | Inpatient (IN) | payer MEDICARE ==
[2017-03-19 04:15] LABS: Hematocrit 47 % (35-47); Hemoglobin 14.9 g/dl (12.0-16.0); Mean Corpuscular HGB Conc 32 g/dl (31-36); Mean Corpuscular Hemoglobin 30 pg (27-31); Mean Corpuscular Volume 95 fL (80-97); Mean Platelet Volume 11 um3 (7.4-10.4); Red Blood Count 4.98 10^6/ul (4.0-5.4); Red Cell Distribution Width 14 % (10.5-15); White Blood Count 16.9 10^3/ul (3.5-10.8)
[2017-03-19] MEDS ORDERED: Magnesium Sulfate 2 GM IV* 2 GM/50 ML BAG IVPB ONE (04:16)
[2017-03-19] MEDS ORDERED: methylPREDNISolone 125 MG* 2 ML VIAL IV ONE (04:16)
[2017-03-19] MEDS ORDERED: Albuterol/Ipratropium NEB.SOL* Albuterol 2.5 MG/Ipratropium 0.5 MG 3 ML INH ONE (04:16)
[2017-03-19 04:17] LABS: PCO2 Arterial 49 mmHg (35-45)
[2017-03-19] MEDS ORDERED: Levofloxacin 500 MG IVPREMIX(* 500 MG/100 ML BAG IVPB ONE (04:18)
[2017-03-19] MEDS ORDERED: Albuterol/Ipratropium NEB.SOL* Albuterol 2.5 MG/Ipratropium 0.5 MG 3 ML ONE (04:19)
[2017-03-19 04:24] LABS: Albumin 4.1 g/dL (3.2-5.2); Calcium 9.1 mg/dL (8.6-10.3); EGFR African American 47.1 (>60); EGFR Non-African American 36.6 (>60); Globulin 2.8 g/dL (2-4); Potassium 3.9 mmol/L (3.5-5.0); Total Bilirubin 0.9 mg/dL (0.2-1.0); Total Protein 6.9 g/dL (6.4-8.9); Troponin I 0.03 ng/mL (<0.04)
--- NOTE | 2017-03-19 05:56 | ED ---
Edwina Ascencio Rebecca, scribed for Oumar Lo on 03/19/17 at 0419 . Shortness of Breath - HPI Summary HPI Summary: Pt is an 82 y/o F who presents to ED c/o SOB. SOB characterized as severe dyspnea at rest. Sx aggravated and alleviated by nothing, unchanged by albuterol. Daughter additionally notes panic secondary to SOB. Yesterday, the pt had a cardioversion with Dr. Nieto to treat an arrhythmia and she has been feeling "crappy" since then. PMHx COPD. Uses O2 per Os at home at night. - History of Current Complaint Hx Obtained From: Patient, Family/Wrapping Machine Tender - Daughter Onset/Duration: Still Present Current Severity: Severe Dyspnea At: Rest Aggrevating Factors: Nothing Alleviating Factors: Nothing - Allergy/Home Medications Allergies/Adverse Reactions: Allergies Allergy/AdvReac Type Severity Reaction Status Date / Time Diclofenac [From Voltaren] Allergy Severe Swelling Verified 11/06/14 13:41 Of Face,Lips,& Throat Ticlopidine [From Ticlid] Allergy Severe Unknown Verified 11/06/14 13:41 Reaction Details Penicillins Allergy Intermediate Hives Verified 11/06/14 13:41 Clopidogrel [From Plavix] Allergy Unknown Unknown Verified 11/06/14 13:41 Reaction Details PMH/Surg Hx/FS Hx/Imm Hx Endocrine/Hematology History: Reports: Hx Anticoagulant Therapy - xarelto, Hx Thyroid Disease Denies: Hx Blood Disorders, Hx Blood Transfusions, Hx Bone Marrow Disease, Hx Diabetes, Hx Systemic Lupus Erythematosus, Hx Sickle Cell Disease, Hx Anemia , Hx Unexplained Bleeding, Other Endocrine/Hematological Disorders Cardiovascular History: Reports: Hx Angioplasty, Hx Coronary Artery Disease, Hx Hypercholesterolemia, Hx Hypertension, Hx Valvular Heart Disease, Other Cardiovascular Problems/Disorders Denies: Hx Aneurysm, Hx Angina, Hx Auto Implanted Cardiovert Defib, Hx Cardiac Arrest, Hx Cardiomegaly, Hx Congenital Heart Disease, Hx Congestive Heart Failure, Hx Deep Vein Thrombosis, Hx Embolism, Hx Hypotension, Hx Pacemaker/ICD, Hx Peripheral Vascular Disease, Hx Rheumatic Fever, Hx Syncope Respiratory History: Reports: Hx Chronic Obstructive Pulmonary Disease (COPD), Hx Pneumonia, Other Respiratory Problems/Disorders Denies: Hx Asthma, Hx Chronic Bronchitis, Hx Cystic Fibrosis, Hx Lung Cancer , Hx Pleural Effusion, Hx Pulmonary Edema, Hx Pulmonary Embolism, Hx Seasonal Allergies, Hx Sleep Apnea Musculoskeletal History: Reports: Hx Back Problems, Other Musculoskeletal History - compression fracture to thoracic spine Denies: Hx Arthritis, Hx Bursitis, Hx Congenital Bone Abnormalities, Hx Fibromyalgia, Hx Gout, Hx Orthopedic Injury, Hx Osteoporosis, Hx Scoliosis, Hx Tendonitis Sensory History: Reports: Hx Cataracts, Hx Contacts or Glasses, Hx Vision Problem Denies: Hx Eye Injury, Hx Eye Prosthesis, Hx Glaucoma, Hx Legally Blind, Hx Macular Degeneration, Hx Deafness, Hx Hearing Aid, Hx Hearing Problem, Other Sensory Impairments Opthamlomology History: Reports: Hx Cataracts, Hx Contacts or Glasses, Hx Vision Problem Denies: Hx Eye Injury, Hx Eye Prosthesis, Hx Glaucoma, Hx Legally Blind, Hx Macular Degeneration, Other Sensory Impairments Neurological History: Denies: Hx Headaches, Hx Transient Ischemic Attacks (TIA) Psychiatric History: Reports: Hx Anxiety, Hx Depression - Cancer History Hx Chemotherapy: No Hx Radiation Therapy: No Hx Palliative Cancer Treatment: No - Surgical History Surgery Procedure, Year, and Place: 2011 LEFT TOTAL KNEE [id number] CARDIAC STENT [id number] 4 CARDIAC STENTS [id number], CABG x1 [facility], ROBOTIC CHEST SURGERY 2013 Hx Anesthesia Reactions: No Infectious Disease History: Reports: Hx Hepatitis - Hepatitis 50 years ago Denies: Hx Clostridium Difficile, Hx Human Immunodeficiency Virus (HIV), Hx of Known/Suspected MRSA, Hx Shingles, Hx Tuberculosis, Hx Known/Suspected VRE, Hx Known/Suspected VRSA, History Other Infectious Disease, Traveled Outside the in Last 30 Days - Family History Known Family History: Negative: Cardiac Disease, Hypertension, Diabetes - Social History Alcohol Use: Daily Alcohol Amount: 1 GLASS/DAY Substance Use Type: Reports: None Smoking Status (MU): Former Smoker Type: Cigarettes Amount Used/How Often: 1PPD 30 YRS Length of Time of Smoking/Using Tobacco: 40 Have You Smoked in the Last Year: No Review of Systems Positive: Shortness Of Breath - dyspnea at rest Positive: Other - panic secondary to SOB All Other Systems Reviewed And Are Negative: Yes Physical Exam Triage Information Reviewed: Yes Vital Signs On Initial Exam: Initial Vitals Temp Pulse Resp BP Pulse Ox 98.9 F 90 30 00/00 91 03/19/17 03:40 03/19/17 03:40 03/19/17 03:40 03/19/17 03:40 03/19/17 03:40 Vital Signs Reviewed: Yes Appearance: Positive: No Pain Distress Skin: Positive: Warm, Skin Color Reflects Adequate Perfusion, Dry Head/Face: Positive: Normal Head/Face Inspection Eyes: Positive: EOMI, TRUPTI ENT: Positive: Normal ENT inspection Neck: Positive: Supple, Nontender Respiratory/Lung Sounds: Positive: Wheezes - Bilateral wheezing, Other - Poor air entry Cardiovascular: Positive: RRR, Pulses are Symmetrical in both Upper and Lower Extremities Abdomen Description: Positive: Nontender, Soft Bowel Sounds: Positive: Present Musculoskeletal: Positive: Normal, Strength/ROM Intact Neurological: Positive: Normal, Sensory/Motor Intact, Alert, Oriented to Person Place, Time Psychiatric: Positive: Affect/Mood Appropriate Diagnostics - Vital Signs Vital Signs Temp Pulse Resp BP Pulse Ox 03/19/17 05:30 81 21 151/75 96 03/19/17 05:00 80 23 159/69 96 03/19/17 04:53 81 23 96 03/19/17 04:36 79 22 98 03/19/17 03:45 98 F 86 30 146/128 98 03/19/17 03:40 98.9 F 90 30 00/00 91 - Laboratory Lab Results: Lab Results 03/19/17 03/19/17 03/19/17 Range/Units 01:35 03:44 03:44 WBC 16.9 H (3.5-10.8) 10^3/ul RBC 4.98 (4.0-5.4) 10^6/ul Hgb 14.9 (12.0-16.0) g/dl Hct 47 (35-47) % MCV 95 (80-97) fL MCH 30 (27-31) pg MCHC 32 (31-36) g/dl RDW 14 (10.5-15) % Plt Count 225 (150-450) 10^3/ul MPV 11 H (7.4-10.4) um3 Neut % (Auto) 78.3 (38-83) % Lymph % (Auto) 15.5 L (25-47) % Osborne % (Auto) 4.3 (1-9) % Eos % (Auto) 1.3 (0-6) % Baso % (Auto) 0.6 (0-2) % Absolute Neuts (auto) 13.2 H (1.5-7.7) 10^3/ul Absolute Lymphs (auto) 2.6 (1.0-4.8) 10^3/ul Absolute Monos (auto) 0.7 (0-0.8) 10^3/ul Absolute Eos (auto) 0.2 (0-0.6) 10^3/ul Absolute Basos (auto) 0.1 (0-0.2) 10^3/ul Absolute Nucleated RBC 0.02 10^3/ul Nucleated RBC % 0.1 INR (Anticoag Therapy) 1.60 H (0.89-1.11) APTT 35.9 (26.0-36.3) seconds D-Dimer, Quantitative < 200 (Less Than 230) ng/mL Patient Temperature Not Reportable ABG pH 7.35 (7.35-7.45) ABG pCO2 49 H (35-45) mmHg ABG pO2 106 H (80-100) mmHg ABG HCO3 25.4 (19-31) mmol/L ABG O2 Saturation 97.0 (95-98) % ABG Base Excess 0.7 (-2.0-2.0) Respiration Rate Not Reportable O2 Delivery Device Not Reportable Ventilator Type Not Reportable Vent Mode Not Reportable FiO2 Not Reportable Inspiratory Time Not Reportable PEEP Not Reportable Pressure Support Not Reportable Pressure Control Not Reportable EPAP Not Reportable IPAP Not Reportable BiPAP Not Reportable Sodium (133-145) mmol/L Potassium (3.5-5.0) mmol/L Chloride (101-111) mmol/L Carbon Dioxide (22-32) mmol/L Anion Gap (2-11) mmol/L BUN (6-24) mg/dL Creatinine (0.51-0.95) mg/dL Est GFR ( Amer) (>60) Est GFR (Non-Af Amer) (>60) BUN/Creatinine Ratio (8-20) Glucose (70-100) mg/dL Lactic Acid (0.5-2.0) mmol/L Calcium (8.6-10.3) mg/dL Total Bilirubin (0.2-1.0) mg/dL AST (13-39) U/L ALT (7-52) U/L Alkaline Phosphatase (34-104) U/L Troponin I (<0.04) ng/mL B-Natriuretic Peptide ( - 100) pg/mL Total Protein (6.4-8.9) g/dL Albumin (3.2-5.2) g/dL Globulin (2-4) g/dL Albumin/Globulin Ratio (1-3) 03/19/17 03/19/17 03/19/17 Range/Units 03:44 03:44 03:44 WBC (3.5-10.8) 10^3/ul RBC (4.0-5.4) 10^6/ul Hgb (12.0-16.0) g/dl Hct (35-47) % MCV (80-97) fL MCH (27-31) pg MCHC (31-36) g/dl RDW (10.5-15) % Plt Count (150-450) 10^3/ul MPV (7.4-10.4) um3 Neut % (Auto) (38-83) % Lymph % (Auto) (25-47) % Osborne % (Auto) (1-9) % Eos % (Auto) (0-6) % Baso % (Auto) (0-2) % Absolute Neuts (auto) (1.5-7.7) 10^3/ul Absolute Lymphs (auto) (1.0-4.8) 10^3/ul Absolute Monos (auto) (0-0.8) 10^3/ul Absolute Eos (auto) (0-0.6) 10^3/ul Absolute Basos (auto) (0-0.2) 10^3/ul Absolute Nucleated RBC 10^3/ul Nucleated RBC % INR (Anticoag Therapy) (0.89-1.11) APTT (26.0-36.3) seconds D-Dimer, Quantitative (Less Than 230) ng/mL Patient Temperature ABG pH (7.35-7.45) ABG pCO2 (35-45) mmHg ABG pO2 (80-100) mmHg ABG HCO3 (19-31) mmol/L ABG O2 Saturation (95-98) % ABG Base Excess (-2.0-2.0) Respiration Rate O2 Delivery Device Ventilator Type Vent Mode FiO2 Inspiratory Time PEEP Pressure Support Pressure Control EPAP IPAP BiPAP Sodium 137 (133-145) mmol/L Potassium 3.9 (3.5-5.0) mmol/L Chloride 103 (101-111) mmol/L Carbon Dioxide 25 (22-32) mmol/L Anion Gap 9 (2-11) mmol/L BUN 18 (6-24) mg/dL Creatinine 1.38 H (0.51-0.95) mg/dL Est GFR ( Amer) 47.1 (>60) Est GFR (Non-Af Amer) 36.6 (>60) BUN/Creatinine Ratio 13.0 (8-20) Glucose 155 H (70-100) mg/dL Lactic Acid 1.2 (0.5-2.0) mmol/L Calcium 9.1 (8.6-10.3) mg/dL Total Bilirubin 0.90 (0.2-1.0) mg/dL AST 29 (13-39) U/L ALT 27 (7-52) U/L Alkaline Phosphatase 50 (34-104) U/L Troponin I 0.03 (<0.04) ng/mL B-Natriuretic Peptide 592 H ( - 100) pg/mL Total Protein 6.9 (6.4-8.9) g/dL Albumin 4.1 (3.2-5.2) g/dL Globulin 2.8 (2-4) g/dL Albumin/Globulin Ratio 1.5 (1-3) Result Diagrams: 03/19/17 03:44 03/19/17 03:44 Lab Statement: Any lab studies that have been ordered have been reviewed, and results considered in the medical decision making process. - Radiology CXR Xray Interpretation: Positive (See Comments) - Bilateral PNA Radiology Interpretation Completed By: ED Physician - EKG 0336 Cardiac Rate: NL - 88 bpm EKG Rhythm: Sinus Rhythm ST Segment: Non-Specific - Sinus rhythm with T changes Re-Evaluation - Re-Evaluation 0412 Re-Evaluation Time: 04:23 Change: Improved Comment: Expain that the pt will be getting admitted and that intubation is not necessary at this point. Course/Dx - Course Assessment/Plan: Pt is an 82 y/o F who presents to ED c/o SOB characterized as severe dyspnea at rest. Sx unchanged by albuterol. Daughter additionally notes panic secondary to SOB. Yesterday, the pt had a cardioversion with Dr. Nieto to treat an arrhythmia and she has been feeling "crappy" since then. PMHx COPD. Uses O2 per Os at home at night. EKG reveals sinus rhythm with T changes. CXR reveals bilateral PNA. Discussed care of pt with Dr. Pitt who accepts pt for admisison. She will be admitted with Dx of hypoxia, PNA and COPD exacerbation. - Diagnoses Provider Diagnoses: COPD exacerbation, Hypoxia, PNA (pneumonia) - Physician Notifications Discussed Care of Patient With: Gino Pitt Time Discussed With Above Provider: 05:25 Instructed by Provider To: Other - Accepts pt for admission - Critical Care Time Critical Care Time: 30-74 min - 30min Discharge - Discharge Plan Condition: Fair Disposition: ADMITTED TO [facility] Referrals: Cameron Dasilva MD [Primary Care Provider] - The documentation as recorded by the Edwina martell Rebecca accurately reflects the service I personally performed and the decisions made by Wally good Emmanuel.
--- NOTE | 2017-03-19 06:12 | HP ---
H&P (Free Text) History and Physical: PCP: Luis Angel Dasilva MD Date/Time of Evaluation: 03/19/2017 0545 CC: SOB HPI: Mrs Ramon is an 82YO female HX CHF & COPD who was cardioverted by Sharon Nieto MD cardiology 03/17/2017. Post-cardioversion she did well and was discharged. That evening she did well, but noted SOB which responded well to albuterol HFA initially, but subsequently did not help as her breathing gradually worsened throughout the day. She awoke ~0330 with severe respiratory distress for which her daughter drove her to [facility]. She was placed on vapotherm, given albuterol nebs, methylprednisolone, & levofloxacin. She reports increased swelling in feet , wheezing, and mild cough, but denies congestion, chest pain, F/C, N/V, palpitations, & sweats. PMedHx CAD/2vCABG/stent pAFIB tachy-jayro syndrome mod/sev mitral regurgitation mod/sev tricuspid regurgitation dynamic outflow tract obstruction COPD on nocturnal oxygen hypothyroidism HLD osteoporosis w/ vertebral compression FXs Ambulatory Orders Nursing to reconcile. Hydrocodone-Acetaminophen [Hydrocodone/Acetaminophen] 2 tab PO Q4HR PRN Fluticasone HFA 220 mcg(NF) [Flovent Hfa 220 Mcg(NF)] 2 puff INH DAILY PRN 05/22 Magnesium Oxide [Magnesium Oxide-] 800 mg PO QPM 05/22/16 Potassium Chlor TAB* [Potassium Chlor TAB 20 MEQ*] 40 meq PO DAILY 05/22/16 Rivaroxaban TAB(*) [Xarelto 15 mg(*)] 15 mg PO QPM 05/22/16 Albuterol Sulfate [Proair Respiclick] 2 puff INH DAILY PRN 09/02/16 Aspirin EC Low Dose* [Ecotrin EC Low Dose 81 MG*] 81 mg PO DAILY 09/02/16 Calcium 500 mg PO BID 09/02/16 Ferrous Sulfate TAB* 325 mg PO BID 09/02/16 Furosemide TAB* [Lasix TAB*] 40 mg PO WEEKLY 09/02/16 Ibandronate TAB(NF) [Boniva(NF)] 150 mg PO MONTHLY 09/02/16 LORazepam TAB(*) [Ativan 1 MG TAB (*)] 1 mg PO DAILY PRN 09/02/16 Levothyroxine TAB* [Synthroid 100 MCG TAB*] 100 mcg PO QAM 09/02/16 Rosuvastatin (NF) [Crestor (NF)] 5 mg PO DAILY 09/02/16 amLODIPine TAB* [Norvasc 5 mg TAB*] 2.5 mg PO DAILY 09/02/16 Amiodarone TAB* [Cordarone Tab*] 100 mg PO BID #30 tab 09/05/16 buPROPion TAB* [Wellbutrin TAB*] 75 mg PO BID #60 tab 09/05/16 Allergies Diclofenac [From Voltaren] Allergy (Severe, Verified 11/06/14 13:41) Swelling Of Face,Lips,& Throat Ticlopidine [From Ticlid] Allergy (Severe, Verified 11/06/14 13:41) Unknown Reaction Details PT STATES VERY SEVERE REACTION, HOSPITALIZED Penicillins Allergy (Intermediate, Verified 11/06/14 13:41) Hives Clopidogrel [From Plavix] Allergy (Unknown, Verified 11/06/14 13:41) Unknown Reaction Details SocHx: quit smoking ~20years ago, mild ETOH, no recreational drugs; lives in [facility] during the winter and on [facility] with her daughter in [place]; full code trial of intubation FamHx: Mother: passed at a young age 2nd complications of early onset Alzheimer' s; Father: passed in his 70s 2nd complication of a hip FX, HX prostate CA ROS: as above, otherwise reviewed and all were negative with the exception of constipation Constitutional: NAD, normally developed, well-nourished elderly white female vitals: Vital Signs Temp 37.1 C 03/19/17 06:22 Pulse 74 03/19/17 06:45 Resp 22 03/19/17 06:45 BP 118/53 03/19/17 06:45 Pulse Ox 94 03/19/17 06:45 Intake & Output 03/18/17 03/18/17 03/19/17 11:59 23:59 11:59 Intake Total 156 Balance 156 Weight 68.946 kg Intake: IV Fluids 156 HEENM: atraumatic; sclera/conjunctiva: non-icteric/clear; hearing: clinically intact; oropharynx: clear, mucosa moist Neck: soft tissue: non-tender; thyroid: normal Pulmonary: on Vapotherm; diminished B with mixed rhonchi & end-expiratory wheeze , fair aeration, no accessory muscle use CV: RR/RR, normal S1S2, no carotid bruit, no femoral bruit, no abdominal bruit, no jugular venous distention, 2+ B DP/PT, trace BLE edema Abdominal: soft, non-distended, non-tender, no rebound/guarding/rigidity, normoactive bowel sounds, no hepatosplenomegaly or masses, no costovertebral angle tenderness Musculoskeletal: general: grossly intact; gait: too ill currently to ambulate Integumental: normal appearance and texture of exposed skin Psychiatric orientation: AA&O to PPS affect: fatigued mood: cooperative eye contact: fair content: reliable responses: mildly slowed insight: fair to good Testing: Lab Results 03/19/17 03/19/17 03/19/17 Range/Units 01:35 03:44 03:44 WBC 16.9 H (3.5-10.8) 10^3/ul RBC 4.98 (4.0-5.4) 10^6/ul Hgb 14.9 (12.0-16.0) g/dl Hct 47 (35-47) % MCV 95 (80-97) fL MCH 30 (27-31) pg MCHC 32 (31-36) g/dl RDW 14 (10.5-15) % Plt Count 225 (150-450) 10^3/ul MPV 11 H (7.4-10.4) um3 Neut % (Auto) 78.3 (38-83) % Lymph % (Auto) 15.5 L (25-47) % Beckham % (Auto) 4.3 (1-9) % Eos % (Auto) 1.3 (0-6) % Baso % (Auto) 0.6 (0-2) % Absolute Neuts (auto) 13.2 H (1.5-7.7) 10^3/ul Absolute Lymphs (auto) 2.6 (1.0-4.8) 10^3/ul Absolute Monos (auto) 0.7 (0-0.8) 10^3/ul Absolute Eos (auto) 0.2 (0-0.6) 10^3/ul Absolute Basos (auto) 0.1 (0-0.2) 10^3/ul Absolute Nucleated RBC 0.02 10^3/ul Nucleated RBC % 0.1 INR (Anticoag Therapy) 1.60 H (0.89-1.11) APTT 35.9 (26.0-36.3) seconds D-Dimer, Quantitative < 200 (Less Than 230) ng/mL Patient Temperature Not Reportable ABG pH 7.35 (7.35-7.45) ABG pCO2 49 H (35-45) mmHg ABG pO2 106 H (80-100) mmHg ABG HCO3 25.4 (19-31) mmol/L ABG O2 Saturation 97.0 (95-98) % ABG Base Excess 0.7 (-2.0-2.0) Respiration Rate Not Reportable O2 Delivery Device Not Reportable Ventilator Type Not Reportable Vent Mode Not Reportable FiO2 Not Reportable Inspiratory Time Not Reportable PEEP Not Reportable Pressure Support Not Reportable Pressure Control Not Reportable EPAP Not Reportable IPAP Not Reportable BiPAP Not Reportable Sodium (133-145) mmol/L Potassium (3.5-5.0) mmol/L Chloride (101-111) mmol/L Carbon Dioxide (22-32) mmol/L Anion Gap (2-11) mmol/L BUN (6-24) mg/dL Creatinine (0.51-0.95) mg/dL Est GFR ( Amer) (>60) Est GFR (Non-Af Amer) (>60) BUN/Creatinine Ratio (8-20) Glucose (70-100) mg/dL Lactic Acid (0.5-2.0) mmol/L Calcium (8.6-10.3) mg/dL Total Bilirubin (0.2-1.0) mg/dL AST (13-39) U/L ALT (7-52) U/L Alkaline Phosphatase (34-104) U/L Troponin I (<0.04) ng/mL B-Natriuretic Peptide ( - 100) pg/mL Total Protein (6.4-8.9) g/dL Albumin (3.2-5.2) g/dL Globulin (2-4) g/dL Albumin/Globulin Ratio (1-3) 03/19/17 03/19/17 03/19/17 Range/Units 03:44 03:44 03:44 WBC (3.5-10.8) 10^3/ul RBC (4.0-5.4) 10^6/ul Hgb (12.0-16.0) g/dl Hct (35-47) % MCV (80-97) fL MCH (27-31) pg MCHC (31-36) g/dl RDW (10.5-15) % Plt Count (150-450) 10^3/ul MPV (7.4-10.4) um3 Neut % (Auto) (38-83) % Lymph % (Auto) (25-47) % Beckham % (Auto) (1-9) % Eos % (Auto) (0-6) % Baso % (Auto) (0-2) % Absolute Neuts (auto) (1.5-7.7) 10^3/ul Absolute Lymphs (auto) (1.0-4.8) 10^3/ul Absolute Monos (auto) (0-0.8) 10^3/ul Absolute Eos (auto) (0-0.6) 10^3/ul Absolute Basos (auto) (0-0.2) 10^3/ul Absolute Nucleated RBC 10^3/ul Nucleated RBC % INR (Anticoag Therapy) (0.89-1.11) APTT (26.0-36.3) seconds D-Dimer, Quantitative (Less Than 230) ng/mL Patient Temperature ABG pH (7.35-7.45) ABG pCO2 (35-45) mmHg ABG pO2 (80-100) mmHg ABG HCO3 (19-31) mmol/L ABG O2 Saturation (95-98) % ABG Base Excess (-2.0-2.0) Respiration Rate O2 Delivery Device Ventilator Type Vent Mode FiO2 Inspiratory Time PEEP Pressure Support Pressure Control EPAP IPAP BiPAP Sodium 137 (133-145) mmol/L Potassium 3.9 (3.5-5.0) mmol/L Chloride 103 (101-111) mmol/L Carbon Dioxide 25 (22-32) mmol/L Anion Gap 9 (2-11) mmol/L BUN 18 (6-24) mg/dL Creatinine 1.38 H (0.51-0.95) mg/dL Est GFR ( Amer) 47.1 (>60) Est GFR (Non-Af Amer) 36.6 (>60) BUN/Creatinine Ratio 13.0 (8-20) Glucose 155 H (70-100) mg/dL Lactic Acid 1.2 (0.5-2.0) mmol/L Calcium 9.1 (8.6-10.3) mg/dL Total Bilirubin 0.90 (0.2-1.0) mg/dL AST 29 (13-39) U/L ALT 27 (7-52) U/L Alkaline Phosphatase 50 (34-104) U/L Troponin I 0.03 (<0.04) ng/mL B-Natriuretic Peptide 592 H ( - 100) pg/mL Total Protein 6.9 (6.4-8.9) g/dL Albumin 4.1 (3.2-5.2) g/dL Globulin 2.8 (2-4) g/dL Albumin/Globulin Ratio 1.5 (1-3) ECG, personally reviewed: ordered, pending CXR, personally reviewed: bibasilar infiltrates with diffuse interstitial edema ECHO (09/02/2016): Conclusions: The left ventricular chamber size is decreased. Global left ventricular wall motion and contractility are within normal limits. The estimated ejection fraction is 60-65%. The left atrium is moderate to severely dilated. The right ventricular global systolic function is normal. There is mild aortic stenosis. There is trace to mild aortic regurgitation. There is mild to moderate mitral stenosis. There is moderate to severe mitral regurgitation. There is moderate to severe tricuspid regurgitation. There is evidence of moderate pulmonary hypertension: 55 mmHg. Compared with prior echo of 07/07/16, LVOT obstruction not seen in this study, EF is stable, the degree of MR has increased from mild (pt s/p cardioversion from afib today), the degree of TR has increased from moderate. Otherwise not significantly changed. Impression: 82F presenting in acute severe respiratory distress cardioverted from AFIB 03/17/2017 by Sharon Nieto with bibasilar infiltrates suggestive of pneumonia vs CHF with diffuse interstitial edema DIAGNOSIS & PLAN Primary acute hypoxic respiratory failure 2nd acute diastolic HF of multifactorial etiology : ICU monitoring : vapotherm : supportive care concern for sepsis 2nd bibasilar pneumonia : levofloxacin IV : blood, urine, & sputum CXs : hold IVFs give concern for acute diastolic HF, good BP : urine Legionella & S pneumo antigens concern for acute diastolic HF : gentle diuresis given concern for pneumonia/sepsis : daily weights : strict I&Os : lopez to gravity for accurate monitoring of renal function in critically ill patient, prevention of skin breakdown, etc : Mack Cooley MD cardiology consulted, will evaluate this AM COPD exacerbation : albuterol nebs : mometasone/formoterol : tiotropium : methylprednisolone : incentive spirometry : supplemental oxygen as above Secondary CAD/2vCABG/stent : HX tachy-jayro syndrome : mod/sev mitral regurgitation : mod/sev tricuspid regurgitation : dynamic outflow tract obstruction : review meds once reconciled pAFIB : currently NSR : review meds once reconciled hypothyroidism : review meds once reconciled HLD : review meds once reconciled Admission Rational: inpatient ICU for IV ABX, close monitoring of critically ill patient inappropriate for outpatient setting DVTp: SCDs & continue rivaroxaban once reconciled/confirmed Code Status: full w/ trial of intubation HCP: daughterCayden
--- NOTE | 2017-03-19 08:05 | RAD ---
INDICATION: Shortness of breath. COMPARISON: Comparison is made with a prior chest x-ray study from September 02, 2016. TECHNIQUE: A portable view of the chest was obtained. FINDINGS: The heart is moderately enlarged and has increased in size. There is diffuse prominence of the interstitial markings and trace bilateral pleural effusions. There is also a curvilinear density at the right lung base suggestive of atelectasis. IMPRESSION: FINDINGS SUGGESTIVE OF CONGESTIVE HEART FAILURE.
[2017-03-19] MEDS ORDERED: Acetaminophen TAB* 325 MG PO PRN (08:37)
[2017-03-19] MEDS ORDERED: Albuterol 2.5 MG/3 ML NEB.SOL* (0.083%) INH PRN (08:37)
[2017-03-19] MEDS ORDERED: CMC:Melatonin (NF) 3 MG TAB PO PRN (08:41)
[2017-03-19] MEDS ORDERED: Ondansetron INJ* 2 MG/ML VIAL IV PRN (08:41)
[2017-03-19] MEDS ORDERED: Morphine INJ* 2 MG/ML 1 ML SYRINGE IV PRN (08:41)
[2017-03-19] MEDS ORDERED: Furosemide IV* 10 MG/ML 10 ML VIAL (100 MG) IV ONE ×2 (08:41→09:04)
[2017-03-19] MEDS ORDERED: Spiriva Inhaler DEVICE* 1 EACH DEVICE SCH (09:00)
--- NOTE | 2017-03-19 09:18 | CONSULT ---
Subjective Date of Service: 03/19/17 Interval History: DOS 03/19/[address] Dasilva Sat Act Instructor Dr. Abraham Service: Hospitalist CC: Dyspnea Reason for consult: CHF, AFib HPI Afua HPI: Mrs. Ramon is an 82 year old woman who has been experiencing weight gain of 9 pounds since October, dyspnea trouble making up stairs stopping many 2-3 from [place] probably about a week but she cannot be certain. Found with recent recurrence of atrial fibrillation and had a cardioversion two days ago. Did not help and continued to feel progressively dyspneic. Came to ER found in respiratory distress with wheezing reportedly was nearly intubated. Given 02, bronchodilators, IV steroids, antibiotics and improved but still on Fi02 30%. Able to have a full conversation but does appear appear dyspneic. No chest pain , or syncope. Her legs do not appear very edematous but she says this is much worse than they usually are. Of note she does have underlying COPD and is on amiodarone. Mild cough but not productive. No fevers. Allergies: PCN 05/26/07 Ticlopidine HCL 06/11/08 - neutropenia 06/07 Voltaren 09/27/13 allergy list reviewed on 03/17/2017 PMHx Chronic obstructive lung disease CKD CAD/SC Pafib Essential hypertension Coronary atherosclerosis Aortic valve disorder Coronary arteriosclerosis Mitral valve disorder Atrial fibrillation Benign essential hypertension Hypercholesterolemia Tobacco Use - 2ppd for 30 yrs dced in 94. Allergic Conjunctivitis Chronic Obstructive Pulmonary fam hx: non-contributory Surgical Hx: Coronary Artery Bypass Graft (CABG) - (05/14/2014) [facility], robotic RESENDEZ to LAD, anticipated staged PCI of RCA not performed as of [facility] PLan minimally invasive RESENDEZ to the LAD followed by percutaneous intervention and stenting of the diagonal nad the RCA. robotic assisted minimally invasive coronary bypass grafting with RESENDEZ to the LAD on May 24, [address] Marc[address] Tubal Ligation Knee Surgery - (2002) left Knee Surgery - (09/18/2011) left knee replacement Cataract Removal - (10/2013) fracture - (2013) broke wrist 3.14 right elbow fracture 6.14 soc hx Lives With: Alone.Occupation: Retired.has 2 daughters, 1 son accidentally Personal Habits: Smoking: Patient is a former smoker, quit .Cigarette Use : Former Cigarette Smoker.Alcohol: Consumes 1 glass of wine per day - or qod.Drug Use: Denies Drug Use.Daily Caffeine: consumes chocolate frequently, Comsumes on average 1 cup of decaff coffee per day.Exercise Type: Exercises regularly. Medications Active Medications: Acetaminophen (Tylenol Tab*) 650 mg PO Q6H PRN PRN Reason: FEVER/PAIN Albuterol (Ventolin 2.5 Mg/3 Ml Neb.Suzan*) 2.5 mg INH Q2H PRN PRN Reason: SOB/WHEEZING Albuterol (Ventolin 2.5 Mg/3 Ml Neb.Suzan*) 2.5 mg INH [id number] AWAKE [facility] Device (Tiotropium Inhaler Device*) 1 each .SEE ORDER .USE w/ SPIRIVA CAPS ASHLEY Docusate Sodium (Colace Cap*) 200 mg PO BID ASHLEY Furosemide (Lasix Iv*) 40 mg IV DAILY [facility] Guaifenesin (Mucinex*) 1,200 mg PO BID [facility] Levofloxacin/Dextrose (Levaquin 500 Mg Ivpremix(*)) 500 mg in 100 mls @ 100 mls /hr IVPB Q24H [facility] Melatonin (Melatonin (Nf)) 3 mg PO BEDTIME PRN; Protocol PRN Reason: Sleep Methylprednisolone Sodium Succinate (Solu-Medrol 40 Mg) 40 mg IV Q8H [facility] Mometasone Furoate/Formoterol Fumar (Dulera 200/5 Mdi*) 2 puff INH BID [facility] Morphine Sulfate (Morphine Inj (Syringe)*) 2 mg IV Q2H PRN PRN Reason: air hunger Omeprazole (Prilosec Cap*) 20 mg PO DAILY@0600 [facility] Ondansetron HCl (Zofran Inj*) 4 mg IV Q6H PRN PRN Reason: NAUSEA Tiotropium [place] (Spiriva Cap.Inh*) 1 cap INH DAILY [facility] Home Medications: Hydrocodone-Acetaminophen [Hydrocodone/Acetaminophen] 2 tab PO Q4HR PRN [History Confirmed 03/17/17] Fluticasone HFA 220 mcg(NF) [Flovent Hfa 220 Mcg(NF)] 2 puff INH DAILY PRN 05/22 [History Confirmed 03/17/17] Magnesium Oxide [Magnesium Oxide-] 800 mg PO QPM 05/22/16 [History Confirmed ] Potassium Chlor TAB* [Potassium Chlor TAB 20 MEQ*] 40 meq PO DAILY 05/22/16 [ History Confirmed 03/17/17] Rivaroxaban TAB(*) [Xarelto 15 mg(*)] 15 mg PO QPM 05/22/16 [History Confirmed 03/17/17] Albuterol Sulfate [Proair Respiclick] 2 puff INH DAILY PRN 09/02/16 [History Confirmed 03/17/17] Aspirin EC Low Dose* [Ecotrin EC Low Dose 81 MG*] 81 mg PO DAILY 09/02/16 [ History Confirmed 03/17/17] Calcium 500 mg PO BID 09/02/16 [History Confirmed 03/17/17] Ferrous Sulfate TAB* 325 mg PO BID 09/02/16 [History Confirmed 03/17/17] Furosemide TAB* [Lasix TAB*] 40 mg PO WEEKLY 09/02/16 [History Confirmed ] Ibandronate TAB(NF) [Boniva(NF)] 150 mg PO MONTHLY 09/02/16 [History Confirmed 03/17/17] LORazepam TAB(*) [Ativan 1 MG TAB (*)] 1 mg PO DAILY PRN 09/02/16 [History Confirmed 03/17/17] Levothyroxine TAB* [Synthroid 100 MCG TAB*] 100 mcg PO QAM 09/02/16 [History Confirmed 03/17/17] Rosuvastatin (NF) [Crestor (NF)] 5 mg PO DAILY 09/02/16 [History Confirmed 03/17] amLODIPine TAB* [Norvasc 5 mg TAB*] 2.5 mg PO DAILY 09/02/16 [History Confirmed 03/17/17] Amiodarone TAB* [Cordarone Tab*] 100 mg PO BID #30 tab 09/05/16 [Rx Confirmed ] buPROPion TAB* [Wellbutrin TAB*] 75 mg PO BID #60 tab 09/05/16 [Rx Confirmed ] Review of Systems - Review of Systems Constitutional Symptoms: Positive: Weight Gain, Fatigue Dermatology: Negative: Rash, Skin Lesions, Skin Lumps HEENT: Positive: Normal Negative: Change in Hearing, Vertigo, Dental Problems, Tinnitus Eyes: Negative: Change in Vision, Double Vision, Eye Pain, Glaucoma, Cataracts Thyroid: Negative: Goiter, Thyroid Nodule, Cold Intolerance, Heat Intolerance, Constipation, Primary Hypothyroidism, Radiation Exposure Pulmonary: Positive: Cough, Respiratory Distress, Shortness of Breath, Exercise Intolerance Negative: Normal, Sputum, Hemoptysis, Wheezing, COPD, Asthma Cardiology: Positive: Shortness of Breath, Swelling of Ankles, Edema Negative: Chest Pain, Palpitations, Peripheral Vascular Dis, Faintness, Syncope, Claudication, Paroxysmal Nocturnal Dyspnea, Orthopnea Gastroenterology: Negative: Abdominal Pain, Nausea, Vomiting, Anorexia, Indigestion, Difficulty Swallowing, Heartburn, Constipation, Diarrhea, Haematemesis, Melena Genital - Urinary: Negative: Dysuria Musculoskeletal: Negative: Osteoporosis, Low Back Pain, Sciatica Endocrinology: Negative: Obesity, Hyperglycemia, Hypoglycemia, Calluses, Gynecomastia, Pituitary Disease Hematologic/Lymphatic: Positive: Use of Anticoagulant, Use of Antiplatelet Drugs Negative: Anemia, Easy Brusing, Hx Leukemia, Hx Lymphoma, Other Neurology: Negative: Change in Vision, Diplopia, Dizziness, Change in Balancing, Change in Coordination, Change in Memory, Change in Speech, Change in Sphincter Function, Hx of Stroke\TIA, Hx Seizures Psychiatry: Negative: Sexual Dysfunction, Weight Change, Guilt Feelings, Tearfulness, Unusual Fatigue, Unusual Anxiety, Eating Disorders Allergic/Immunologic: Negative: Hx HIV, Immunocompromise, Swollen Glands Lymph Nodes Review of Systems Statement: All other review of systems negative, unless stated above. Objective Vital Signs: Temp Pulse Resp BP Pulse Ox 99.8 F 74 22 118/53 94 03/19/17 08:00 03/19/17 06:45 03/19/17 06:45 03/19/17 06:45 03/19/17 06:45 Appearance: not toxic appearing, pleasant Neck: Trachea Midline Respiratory: Clear to Auscultation, - - mild tachypnea/increased work of breathing Cardiovascular: - - rrr, 2/6 murmur llsb, + jvd Abdominal: NL Sounds; No Tenderness; No Distention Extremities: No Clubbing, Cyanosis, - - mild edema Neurological: Alert and Oriented x 3, NL Muscle Strength and Tone Laboratory Results: 03/19/17 03:44 03/19/17 03:44 INR (Anticoag Therapy) 1.60 (0.89-1.11) H 03/19/17 03:44 APTT 35.9 seconds (26.0-36.3) 03/19/17 03:44 Total Bilirubin 0.90 mg/dL (0.2-1.0) 03/19/17 03:44 AST 29 U/L (13-39) 03/19/17 03:44 ALT 27 U/L (7-52) 03/19/17 03:44 Alkaline Phosphatase 50 U/L (34-104) 03/19/17 03:44 B-Natriuretic Peptide 592 pg/mL (-100) H 03/19/17 03:44 Total Protein 6.9 g/dL (6.4-8.9) 03/19/17 03:44 Albumin 4.1 g/dL (3.2-5.2) 03/19/17 03:44 Globulin 2.8 g/dL (2-4) 03/19/17 03:44 Albumin/Globulin Ratio 1.5 (1-3) 03/19/17 03:44 03/19/17 03:44 Troponin I 0.03 Diagnostic Imaging: . 03/31/08: Cath at [facility] revealed EF 70%, 1+ MR, LAD heavy calcification, proximal and mid vessel, 75-90% prior to D2 involving S1 and D1, D2 has a 90% lesion, LCX samll distribution, < 50% proximally. RCA large dominant, 50-75% proximal to middle third. LAD felt to be high risk for PTCA. offered CABG or hybrid ERSENDEZ to LAD and ptca of RCA. Transferred to [facility] in [place], [place] 04/10/08: Atherectomy and stenting of the LAD at D1 with a Xience JULIA. Xience stent to the D2 04/11/08: Stent to mid LAD to exclude a previously retained wire, residual 50% lesion in D1 Cardiac cath. - (02/2014) abnl nuclear 2013 declined cath. fracture elbow , agreed to preop cath .2013 [facility] dominant large RCA supplying the inferior and inferior lateral and lateral wall of the LV with a 50% proximal lesion and mid 70% lesion. There was no disease in left main 90% stenosis of the mid LAD and a 70% stenosis of the 2nd diagonal. Circumflex was a very small vessel. Previous SC - (07/2004) PTCA of an RCA Lesion. 1.2017: septal hypertrophy, EF 60-65%, moderate to severe left atrial enlargement, moderate to severe MR, mild to moderate mitral stenosis, mild AI, mild aortic stenosis, moderate to severe TR, moderate pulmonary hypertension, RV systolic pressure 55. Stress Test - (11/21/2015) stress echo: 10 minutes and 29 seconds to 6.1 METS. She had a blunted heart rate response, to only 81% of max predicted. She had mild resting hypertension and appropriate blood pressure response to exercise. She had an EF of 55% at rest and increased to 70-75% with stress possible relative inferior hypokinesis. Resting PA pressure was 51 and went to 95 mm in recovery. Resting LVOT velocity was 1.5 mps and went to 1.9 mps in recovery. The aortic valve last year was 2.3 mps at rest and 2.1 in recovery. It was felt to be an abnormal stress test with possible chronotropic insufficiency and possible hemodynamic MR based on the pulmonary pressures in recovery. The patient was reluctant to have any aggressive interventions for either her coronary disease or her mitral valve and wanted to continue medical management. It was also noted that the findings were obtained at sub target heart rate and may under estimate the degree of ischemia and MR. Echocardiogram - (08/2016) septal hypertrophy, EF 60-65%, moderate to severe left atrial enlargement, moderate to severe MR, mild to moderate mitral stenosis , mild AI, mild aortic stenosis, moderate to severe TR, moderate pulmonary hypertension, RV systolic pressure 55. EKG Data: EKG 03/19/2017: NSR, IVCD, new mild TWI Leads v4-v7 and 1/aVL Assessment/Plan In summary, Opal Ramon is an 82 year old woman with a history of prior tobacco use, CAD, HTN, CKD, nocturnal 02 use, Pafib on amiodarone with cardioversion 2 days ago, COPD who presents with acute on chronic heart failure with a normal ejection fraction likely precipitating COPD exaceration +/- pneumonia. - Give lasix 60 mg IV x 1 now and then 40 mg IV daily (ordered) - Check BMP/Mg and replace as needed - Continue PARALEGAL amiodarone (for now), aspirin, xarelto, norvasc - Repeat EKG tomorrow (ordered) and agree with troponin trend - Check CXR tomorrow afternoon after lasix today and tomorrow (ordered). Weight gain suggestive of CHF but if no improvement may need to consider amiodarone toxicity contribution although with steroids to treat COPD (also treatment for amiodarone toxicity), this may complicate situation. - Continue bronchodilators, steroids, Abx, 02 as per Primary service - Will follow up Thank you for allowing me to participate in the cardiovascular care of this patient. Please do not hesitate to contact me with questions or concerns.
[2017-03-19] MEDS: guaiFENesin ER TAB 600 MG PO SCH ×2 (09:29→20:57)
[2017-03-19] MEDS: Docusate CAP* 100 MG PO SCH ×2 (09:30→21:00)
[2017-03-19] MEDS: Mometasone/Formoter 200/5 MDI INH SCH ×2 (11:12→19:29)
[2017-03-19] MEDS: Tiotropium CAP.INH* CAP.INH/18 MCG INH SCH (11:12)
[2017-03-19] MEDS: Albuterol 2.5 MG/3 ML NEB.SOL* (0.083%) INH SCH ×2 (13:38→19:25)
[2017-03-19] MEDS ORDERED: Rivaroxaban TAB(*) 15 MG PO SCH (15:00)
[2017-03-19] MEDS: Aspirin EC Low Dose* 81 MG TAB.EC PO SCH (16:26)
[2017-03-19] MEDS: CMCS Rosuvastatin (NF) 5 MG TAB PO SCH (17:25)
[2017-03-19] MEDS: Rivaroxaban TAB(*) 15 MG PO SCH (17:31)
[2017-03-19] MEDS: Amiodarone TAB* 200 MG PO SCH (20:59)
[2017-03-20] MEDS: Albuterol 2.5 MG/3 ML NEB.SOL* (0.083%) INH SCH ×2 (01:06→07:14)
[2017-03-20] MEDS ORDERED: Levofloxacin 250 MG IVPREMX(*) 250 MG/50 ML BAG IVPB SCH (04:00)
[2017-03-20] MEDS: Omeprazole CAP* 20 MG PO SCH (05:58)
[2017-03-20 06:26] LABS: Hematocrit 40 % (35-47); Mean Corpuscular HGB Conc 32 g/dl (31-36); Mean Corpuscular Hemoglobin 30 pg (27-31); Mean Corpuscular Volume 93 fL (80-97); Mean Platelet Volume 10 um3 (7.4-10.4); Red Blood Count 4.32 10^6/ul (4.0-5.4); Red Cell Distribution Width 13 % (10.5-15)
[2017-03-20 06:40] LABS: BUN/Creatinine Ratio 15.4 (8-20); Calcium 8.1 mg/dL (8.6-10.3); EGFR African American 50.4 (>60); EGFR Non-African American 39.2 (>60); Magnesium 2.6 mg/dL (1.9-2.7); Potassium 3.8 mmol/L (3.5-5.0)
[2017-03-20] MEDS: Tiotropium CAP.INH* CAP.INH/18 MCG INH SCH (07:15)
[2017-03-20] MEDS: Mometasone/Formoter 200/5 MDI INH SCH ×2 (07:15→19:37)
[2017-03-20] MEDS ORDERED: methylPREDNISolone SOD 40 MG* 1 ML VIAL IV SCH (09:00)
--- NOTE | 2017-03-20 09:03 | PN ---
Subjective Date of Service: 03/20/17 Interval History: dos 03/20/2017 f/u ChF, Afib net negative 3.5 liters much improved, no dyspnea at rest, wants to go home no afib on telemetry EKG this AM, NSR, QTc now prolonged, TWI 1 and aVL Medications Active Medications: Acetaminophen (Tylenol Tab*) 650 mg PO Q6H PRN PRN Reason: FEVER/PAIN Albuterol (Ventolin 2.5 Mg/3 Ml Neb.Suzan*) 2.5 mg INH Q2H PRN PRN Reason: SOB/WHEEZING Albuterol (Ventolin 2.5 Mg/3 Ml Neb.Suzan*) 2.5 mg INH [id number] AWAKE [facility] Last Admin: 03/20/17 07:14 Dose: 2.5 mg Amiodarone HCl (Cordarone Tab*) 100 mg PO BID [facility] Last Admin: 03/19/17 20:59 Dose: 100 mg Aspirin (Aspirin Ec Low Dose*) 81 mg PO DAILY [facility] Last Admin: 03/19/17 16:26 Dose: 81 mg Device (Tiotropium Inhaler Device*) 1 each .SEE ORDER .USE w/ SPIRIVA CAPS [facility] Docusate Sodium (Colace Cap*) 200 mg PO BID [facility] Last Admin: 03/19/17 21:00 Dose: Not Given Furosemide (Lasix Iv*) 40 mg IV DAILY [facility] Guaifenesin (Mucinex*) 1,200 mg PO BID [facility] Last Admin: 03/19/17 20:57 Dose: 1,200 mg Levofloxacin/Dextrose (Levaquin 250 Mg Ivpremx(*)) 250 mg in 50 mls @ 50 mls/ hr IVPB Q24H [facility] Last Admin: 03/20/17 03:54 Dose: 50 mls/hr Melatonin (Melatonin (Nf)) 3 mg PO BEDTIME PRN; Protocol PRN Reason: Sleep Methylprednisolone Sodium Succinate (Solu-Medrol 40 Mg) 40 mg IV Q8H [facility] Mometasone Furoate/Formoterol Fumar (Dulera 200/5 Mdi*) 2 puff INH BID [facility] Last Admin: 03/20/17 07:15 Dose: 2 puff Morphine Sulfate (Morphine Inj (Syringe)*) 2 mg IV Q2H PRN PRN Reason: air hunger Omeprazole (Prilosec Cap*) 20 mg PO DAILY@0600 [facility] Last Admin: 03/20/17 05:58 Dose: 20 mg Ondansetron HCl (Zofran Inj*) 4 mg IV Q6H PRN PRN Reason: NAUSEA Rivaroxaban (Xarelto(*)) 15 mg PO 1700 [facility] Last Admin: 03/19/17 17:31 Dose: 15 mg Rosuvastatin Calcium (Crestor (Nf)) 5 mg PO DAILY [facility] PRN Reason: Protocol Last Admin: 03/19/17 17:25 Dose: 5 mg Tiotropium [place] (Spiriva Cap.Inh*) 1 cap INH DAILY [facility] Last Admin: 03/20/17 07:15 Dose: 1 cap Objective Vital Signs: Temp Pulse Resp BP Pulse Ox 98.7 F 66 12 107/47 100 03/20/17 07:45 03/20/17 07:23 03/20/17 07:23 03/20/17 06:00 03/20/17 07:23 Appearance: not toxic appearing, pleasant Neck: Trachea Midline Respiratory: Symmetrical Chest Expansion and Respiratory Effort - faint crackles left base, - - faint Cardiovascular: - - rrr, 2/6 murmur llsb, + jvd Abdominal: NL Sounds; No Tenderness; No Distention Extremities: No Clubbing, Cyanosis, - - mild edema Neurological: Alert and Oriented x 3, NL Muscle Strength and Tone Laboratory Results: 03/20/17 06:00 03/20/17 06:00 INR (Anticoag Therapy) 1.60 (0.89-1.11) H 03/19/17 03:44 APTT 35.9 seconds (26.0-36.3) 03/19/17 03:44 Total Bilirubin 0.90 mg/dL (0.2-1.0) 03/19/17 03:44 AST 29 U/L (13-39) 03/19/17 03:44 ALT 27 U/L (7-52) 03/19/17 03:44 Alkaline Phosphatase 50 U/L (34-104) 03/19/17 03:44 B-Natriuretic Peptide 592 pg/mL (-100) H 03/19/17 03:44 Total Protein 6.9 g/dL (6.4-8.9) 03/19/17 03:44 Albumin 4.1 g/dL (3.2-5.2) 03/19/17 03:44 Globulin 2.8 g/dL (2-4) 03/19/17 03:44 Albumin/Globulin Ratio 1.5 (1-3) 03/19/17 03:44 03/19/17 08:54 Troponin I 0.04 H* Diagnostic Imaging: . 03/31/08: Cath at [facility] revealed EF 70%, 1+ MR, LAD heavy calcification, proximal and mid vessel, 75-90% prior to D2 involving S1 and D1, D2 has a 90% lesion, LCX samll distribution, < 50% proximally. RCA large dominant, 50-75% proximal to middle third. LAD felt to be high risk for PTCA. offered CABG or hybrid RESENDEZ to LAD and ptca of RCA. Transferred to [facility] in [place], [place] 04/10/08: Atherectomy and stenting of the LAD at D1 with a Xience JULIA. Xience stent to the D2 04/11/08: Stent to mid LAD to exclude a previously retained wire, residual 50% lesion in D1 Cardiac cath. - (02/2014) abnl nuclear 2012 declined cath. fracture elbow , agreed to preop cath [facility] dominant large RCA supplying the inferior and inferior lateral and lateral wall of the LV with a 50% proximal lesion and mid 70% lesion. There was no disease in left main 90% stenosis of the mid LAD and a 70% stenosis of the 2nd diagonal. Circumflex was a very small vessel. Previous CT - (07/2004) PTCA of an RCA Lesion. : septal hypertrophy, EF 60-65%, moderate to severe left atrial enlargement, moderate to severe MR, mild to moderate mitral stenosis, mild AI, mild aortic stenosis, moderate to severe TR, moderate pulmonary hypertension, RV systolic pressure 55. Stress Test - (11/21/2015) stress echo: 10 minutes and 29 seconds to 6.1 METS. She had a blunted heart rate response, to only 81% of max predicted. She had mild resting hypertension and appropriate blood pressure response to exercise. She had an EF of 55% at rest and increased to 70-75% with stress possible relative inferior hypokinesis. Resting PA pressure was 51 and went to 95 mm in recovery. Resting LVOT velocity was 1.5 mps and went to 1.9 mps in recovery. The aortic valve last year was 2.3 mps at rest and 2.1 in recovery. It was felt to be an abnormal stress test with possible chronotropic insufficiency and possible hemodynamic MR based on the pulmonary pressures in recovery. The patient was reluctant to have any aggressive interventions for either her coronary disease or her mitral valve and wanted to continue medical management. It was also noted that the findings were obtained at sub target heart rate and may under estimate the degree of ischemia and MR. Echocardiogram - (08/2016) septal hypertrophy, EF 60-65%, moderate to severe left atrial enlargement, moderate to severe MR, mild to moderate mitral stenosis , mild AI, mild aortic stenosis, moderate to severe TR, moderate pulmonary hypertension, RV systolic pressure 55. EKG Data: EKG 03/19/2017: NSR, IVCD, new mild TWI Leads v4-v7 and 1/aVL Assessment/Plan In summary, Opal Ramon is an 82 year old woman with a history of prior tobacco use, CAD, HTN, CKD, nocturnal 02 use, Pafib on amiodarone with cardioversion 2 days ago, COPD who presents with acute on chronic heart failure with a normal ejection fraction likely precipitating COPD exaceration, doubt pneumonia. Excellent diuretic response. QTc now prolonged on levaquin and amiodarone - Give lasix 40 mg IV x 1 this AM then change to 20 mg PO every other day at discharge - Check BMP/Mg and replace lytes as needed - Continue [employer] amiodarone, aspirin, xarelto, norvasc - QTc now prolonged on amiodarone/levaquin. No arrhythmia on monitor. Keep electrolytes replaced. Stop levaquin (ordered) - If CXR later today improved can be discharged and follow up with Dr. Abraham, needs repeat EKG at that time. Thank you for allowing me to participate in the cardiovascular care of this patient. Please do not hesitate to contact me with questions or concerns.
[2017-03-20] MEDS: Amiodarone TAB* 200 MG PO SCH ×2 (09:35→20:53)
[2017-03-20] MEDS: Aspirin EC Low Dose* 81 MG TAB.EC PO SCH (09:35)
[2017-03-20] MEDS: guaiFENesin ER TAB 600 MG PO SCH ×2 (09:36→20:53)
[2017-03-20] MEDS: Furosemide IV* 10 MG/ML VIAL (40 MG) IV SCH (09:38)
[2017-03-20] MEDS: Docusate CAP* 100 MG PO SCH ×2 (09:38→20:54)
[2017-03-20] MEDS: CMCS Rosuvastatin (NF) 5 MG TAB PO SCH (09:39)
--- NOTE | 2017-03-20 15:11 | RAD ---
INDICATION: CHF COMPARISON: March 19, 2017 TECHNIQUE: PA and lateral dual-energy views were obtained. FINDINGS: Bones/Soft Tissues: There are no acute bony findings. Cardiomediastinal: The cardiac silhouette is mildly prominent. Central pulmonary vessels and interstitium are less prominent consistent with resolving CHF. Lungs: Mild bibasilar atelectasis. There is hyperinflation. Pleura: Small bilateral effusions. Other: None IMPRESSION: VASCULAR CONGESTIVE CHANGES HAVE ESSENTIALLY RESOLVED. THE PLEURAL EFFUSIONS APPEAR SLIGHTLY LARGER.
[2017-03-20] MEDS: Rivaroxaban TAB(*) 15 MG PO SCH (17:19)
[2017-03-21] MEDS: Omeprazole CAP* 20 MG PO SCH (05:51)
[2017-03-21 08:08] VITALS: BP 119/67
[2017-03-21] MEDS: Tiotropium CAP.INH* CAP.INH/18 MCG INH SCH (08:11)
[2017-03-21] MEDS: Mometasone/Formoter 200/5 MDI INH SCH (08:12)
[2017-03-21] MEDS: CMCS Rosuvastatin (NF) 5 MG TAB PO SCH (09:01)
[2017-03-21] MEDS: Docusate CAP* 100 MG PO SCH (09:02)
[2017-03-21] MEDS: Amiodarone TAB* 200 MG PO SCH (09:02)
[2017-03-21] MEDS: guaiFENesin ER TAB 600 MG PO SCH (09:02)
[2017-03-21] MEDS: Aspirin EC Low Dose* 81 MG TAB.EC PO SCH (09:02)
[2017-03-21] MEDS: Furosemide IV* 10 MG/ML VIAL (40 MG) IV SCH (09:02)
--- NOTE | 2017-03-22 06:55 | PN ---
Subjective Date of Service: 03/20/17 Interval History: . Interviewed and examined patient at bedside; Discussed case with Dr. Pitt ; Reviewed previous notes and radiology results; patient with obvious shortness of breath, and clearly recent fluid overload. she admits to blatant salt-intake with classic salty foods as her favorites. still on oxygen discussed possibly co-existent pna - though a minor contributor. Family History: Unchanged from Admission Social History: Unchanged from Admission Past Medical History: Unchanged from Admission Objective Active Medications: . see MAR Vital Signs 03/21/17 03/21/17 03/21/17 07:46 08:00 08:20 Temperature 98.2 F Pulse Rate 65 64 Respiratory 16 16 16 Rate Blood Pressure 119/67 (mmHg) O2 Sat by Pulse 94 94 97 Oximetry Oxygen Devices in Use Now: Nasal Cannula Appearance: elderly, frail. + sitting up in bed and talking clearly. Eyes: No Scleral Icterus Ears/Nose/Mouth/Throat: Clear Oropharnyx Respiratory: Symmetrical Chest Expansion and Respiratory Effort Cardiovascular: NL Sounds; No Murmurs; No JVD Abdominal: NL Sounds; No Tenderness; No Distention Lymphatic: No Cervical Adenopathy Extremities: - - 1+ edema Skin: No Rash or Ulcers Neurological: Alert and Oriented x 3 Lines/Tubes/Other Access: Clean, Dry and Intact Peripheral IV Nutrition: Taking PO's Result Diagrams: 03/20/17 06:00 03/20/17 06:00 Additional Lab and Data: . Microbiology and Other Data: Microbiology 03/19/17 08:54 Aerobic Blood Culture - Preliminary Blood Venous No Growth Day 2 Anaerobic Blood Culture - Preliminary No Growth Day 2 03/19/17 09:40 Urine Culture - Final Urine No Growth (<1,000 CFU/mL) Legionella Urinary Antigen - Final Negative Legionella Streptococcus pneumoniae Ag Screen - Final Negative S. pneumo Antigen Assess/Plan/Problems-Billing . Assessment: 82 yo female with acute n chronic CHF following recent cardioversion for AF. Normal EF on echo. PAST MEDICAL HISTORY: Chronic obstructive lung disease CKD CAD/WA Pafib Essential hypertension Coronary atherosclerosis Aortic valve disorder Coronary arteriosclerosis Mitral valve disorder Atrial fibrillation Benign essential hypertension Hypercholesterolemia Tobacco Use - 2ppd for 30 yrs stopped in 94. Allergic Conjunctivitis Chronic Obstructive Pulmonary Disease - Patient Problems (1) Congestive heart failure (CHF) Status: Acute Priority: High Code(s): I50.9 - HEART FAILURE, UNSPECIFIED Comment: - lasix daily IV (PO at dc) - amiodarone - ASA - statin - norvasc (2) COPD (chronic obstructive pulmonary disease) Status: Acute Priority: High Code(s): J44.9 - CHRONIC OBSTRUCTIVE PULMONARY DISEASE, UNSPECIFIED Comment: - dulera - spiriva - dc steroids - dc abx (Qtc issue) - rapidly improving with diuresis --> suggests more CHF than COPD/PNA (3) Pneumonia Status: Acute Priority: High Code(s): J18.9 - PNEUMONIA, UNSPECIFIED ORGANISM Comment: - minor component to presentation. - abx initially may have helped - can stop now given entire situation
--- NOTE | 2017-03-22 07:07 | PN ---
Hospitalist Progress Note . HOSPITALIST DISCHARGE NOTE: See dc instructions and summary by me. Patient stable for dc dc instructions reviewed with the patient at the bedside. DC patient home today.
--- NOTE | 2017-03-22 09:39 | DS ---
CC: Dr. Dasilva; Dr. Abraham DISCHARGE SUMMARY: DATE OF ADMISSION: 03/19/17 DATE OF DISCHARGE: 03/21/17 PRIMARY CARE PROVIDER: Dr. Yifan Dasilva COLDFUSION: Dr. Ke Abraham. STATUS DURING HOSPITALIZATION: Inpatient. PRINCIPAL DISCHARGE DIAGNOSES: 1. [id number] diastolic congestive heart failure with preserved ejection fraction and fluid overload, with improvement on diuresis. 2. Status post cardioversion by Dr. Carl Nieto on 03/17/17. SECONDARY DIAGNOSES: 1. Chronic obstructive pulmonary disease. 2. Chronic renal failure. 3. Coronary artery disease, status post myocardial infarction. 4. Paroxysmal atrial fibrillation. 5. Essential hypertension. 6. Coronary atherosclerosis. 7. Aortic valve disorder. 8. Mitral valve disorder. 9. Benign essential hypercholesterolemia. 10. Tobacco abuse 2 packs per day for 30 years with cessation in 1993. 11. Allergic conjunctivitis. DISCHARGE MEDICATION REGIMEN: 1. Mometasone/formoterol (Dulera 200/5) 2 puffs inhaled twice daily. 2. Spiriva inhaler 1 inhalation daily. 3. Albuterol 2 puffs q. 6 hours p.r.n. shortness of breath. 4. Aspirin 81 mg by mouth daily. 5. Calcium 500 mg by mouth twice daily. 6. Diovan - as previously taking. 7. Ferrous sulfate 325 mg by mouth twice daily. 8. Stop fluticasone. 9. Hydrocodone/acetaminophen 2 tablets by mouth every 4 hours as needed for pain. 10. Boniva 150 mg by mouth monthly. 11. Ativan 1 mg daily as needed for anxiety. 12. Levothyroxine 100 mcg by mouth daily. 13. Magnesium oxide 800 mg by mouth daily. 14. Potassium chloride 40 mEq by mouth daily. 15. Xarelto 15 mg by mouth in the evening - as per previous instructions. 16. Crestor 5 mg by mouth daily. 17. Amiodarone 100 mg by mouth twice daily. 18. Lasix 40 mg by mouth every 2 days. 19. Wellbutrin 75 mg by mouth twice daily. HISTORY OF PRESENT ILLNESS AND HOSPITAL COURSE: Please see the H and P by Dr. Gino Pitt as well as the cardiac consultation by Dr. Magen Cooley, both on 03/19/17. In brief, Ms. Ramon is an 82-year-old woman who has been gaining weight since October with dyspnea on exertion, who was found to be in recurrent atrial fibrillation and underwent a cardioversion 2 days prior to admission. The patient did not feel relief and in fact felt progressively dyspneic. The patient came to the emergency room in respiratory distress and wheezing and was , by report, nearly intubated. The patient received oxygen, bronchodilators, IV steroids, and antibiotics and improved, but still had a high oxygen requirement. The patient complained of increased edema and was also treated with diuretic. With diuresis and urine output, she improved dramatically. The patient was diagnosed then with congestive heart failure and, in fact, her steroids and antibiotics were weaned off. The patient had extensive CHF education because she admitted eating nearly every well-known salty food that patients with congestive heart failure are instructed not to eat. Examples include hot dogs, potato chips, [place] food, processed meats, canned soups high in salt, etc. The patient was counseled to follow daily weights. The patient is being discharged home on 03/21/17 in stable condition. The patient was started on Dulera and Spiriva. She preferred the Dulera to her Flovent and I said she could substitute this. Her Lasix instructions are for 40 mg by mouth every other day. She will have repeat labs and follow up with Dr. Dasilva and/or Dr. Abraham next week. The patient's daughter was present daily and received much of the CHF education along with the patient. She seems ready to help and additional individuals are local and ready to help Ms. Ramon get to and from appointments and lead a more compliant diet. She will continue all of her medications as prescribed. She is not being discharged on antibiotics with no fever, no cough, non-impressive infiltrate, and no appreciable white count. There may have been an initial COPD component, but this certainly decreased with diuresis. TIME SPENT: Total time taken to discharge Ms. Ramon was 45 minutes, greater than half that time spent going over the discharge instructions with the patient at the bedside. She was given return to ED instructions for chest pain , shortness of breath, lightheadedness, or any other worrisome symptoms that she should come back and be reevaluated. CONDITION: Stable. [id number]/[facility] #: [id number] [facility]
== END 2017-03-21 12:05 | disposition home or self-care (01) | DRG 291 ==
LOC: ED 03:32 → ICU 05:52 → MEDTELE 03-20 12:22
PROVIDERS: ADMIT Hospitalist; ATTEND Internal Medicine
DX: I13.0 Hypertensive heart and chronic kidney disease with heart failure and stage 1 through stage 4 chronic kidney disease, or unspecified chronic kidney disease (principal); I50.33 Acute on chronic diastolic (congestive) heart failure; Z99.81 Dependence on supplemental oxygen; I48.0 Paroxysmal atrial fibrillation; N18.9 Chronic kidney disease, unspecified; I25.10 Atherosclerotic heart disease of native coronary artery without angina pectoris; I25.2 Old myocardial infarction; F41.9 Anxiety disorder, unspecified; E78.00 Pure hypercholesterolemia, unspecified; I08.3 Combined rheumatic disorders of mitral, aortic and tricuspid valves; F32.9 Major depressive disorder, single episode, unspecified; J44.9 Chronic obstructive pulmonary disease, unspecified; H10.10 Acute atopic conjunctivitis, unspecified eye; Z95.5 Presence of coronary angioplasty implant and graft; Z87.891 Personal history of nicotine dependence; Z79.01 Long term (current) use of anticoagulants; Z79.82 Long term (current) use of aspirin
CPT/HCPCS: 36415; 36600; 71010; 71020; 80048; 80053; 82803; 83605; 83735; 83880; 84484; 85025; 85379; 85610; 85730; 87040; 87086; 87641; 87899; 92960; 93005; 94640; 94760; A9270-GY; J1940; J1956; J2250; J2310; J2920; J3010

== ENCOUNTER 2017-06-14 18:13 | Emergency (ER) | payer MEDICARE ==
--- NOTE | 2017-06-14 20:11 | RAD ---
INDICATION: Pedal edema. COMPARISON: Comparison is made with a prior study from March 20, 2017. TECHNIQUE: A portable view of the chest was obtained. FINDINGS: The heart is mildly enlarged and unchanged from the prior exam. There are small mainly linear infiltrates at both lung bases suggestive of atelectasis less likely pneumonia. No pleural effusion is seen. IMPRESSION: BIBASILAR INFILTRATES SUGGESTIVE OF ATELECTASIS LESS LIKELY PNEUMONIA.
--- NOTE | 2017-06-14 20:12 | RAD ---
INDICATION: Left lower extremity swelling. COMPARISON: Comparison is made with a prior study from December 01, 2011. TECHNIQUE: Multiple real-time, color flow and Doppler tracings of the left lower extremity were obtained. FINDINGS: The common femoral, femoral, profunda femoral and popliteal veins all demonstrate normal compressibility, augmentation with compression and phasic response with respiration. The posterior tibial and peroneal veins demonstrate normal compressibility and augmentation with compression. IMPRESSION: NO EVIDENCE FOR DEEP VENOUS THROMBOSIS.
[2017-06-14 21:22] LABS: Hematocrit 42 % (35-47); Mean Corpuscular HGB Conc 33 g/dl (31-36); Mean Corpuscular Hemoglobin 30 pg (27-31); Mean Corpuscular Volume 91 fL (80-97); Mean Platelet Volume 10 um3 (7.4-10.4); Red Blood Count 4.64 10^6/ul (4.0-5.4); Red Cell Distribution Width 14 % (10.5-15); White Blood Count 9.7 10^3/ul (3.5-10.8)
[2017-06-14 21:38] LABS: Albumin 3.8 g/dL (3.2-5.2); BUN/Creatinine Ratio 15.2 (8-20); C Reactive Protein 4.78 mg/L (< 5.00); Calcium 8.7 mg/dL (8.6-10.3); EGFR African American 31.2 (>60); EGFR Non-African American 24.3 (>60); Globulin 2.5 g/dL (2-4); Magnesium 2.4 mg/dL (1.9-2.7); Total Bilirubin 0.5 mg/dL (0.2-1.0); Total Protein 6.3 g/dL (6.4-8.9)
[2017-06-14 21:39] LABS: Troponin I 0.01 ng/mL (<0.04)
[2017-06-14 22:09] LABS: TSH (Thyroid Stimulating Horm) 6.64 mcIU/mL (0.34-5.60)
[2017-06-14 22:18] LABS: Potassium 3.6 mmol/L (3.5-5.0)
[2017-06-14] MEDS ORDERED: Furosemide IV* 10 MG/ML 2 ML VIAL (20 MG) IV SLOW PU ONE (22:29)
[2017-06-14] MEDS ORDERED: Cephalexin CAP* 500 MG PO ONE ×2 (22:30)
--- NOTE | 2017-06-14 22:36 | ED ---
Barrie Ascencio Nikita, scribed for Ceasar Terry MD on 06/14/17 at 1937 . Lower Extremity - HPI Summary HPI Summary: This patient is an 82 year old F presenting to ED with a chief complaint of BLE edema since 2 weeks ago s/p accidentally hitting her L lees on a coffee table. The CC is described as erythematous, hot, not even dried up yet, and swelling around the ankles (L is bigger than the R). The patient rates the pain 0/10 in severity. Symptoms aggravated by nothing. Symptoms alleviated by nothing. Patient reports worst taste in my mouth, ever, bloating (not unusual), SOB ( due to COPD, but has exacerbated in the last hour), and weight gain (2 lbs greater this morning). Patient denies wheezing, fever, chills, cough, appetite changes, bowel symptoms, urinary symptoms. - History of Current Complaint Chief Complaint: EDGeneral Stated Complaint: BOTH ANKLES SWOLLEN/SORE NOT HEALING Time Seen by Provider: 06/14/17 19:20 Hx Obtained From: Patient Mechanism Of Injury: Blunt Trauma Onset/Duration: Weeks - 2 weeks ago Severity Currently: None Pain Intensity: 0 Pain Scale Used: 0-10 Numeric Timing: Constant Location: Is Discrete @ - bilateral LE Associated Signs And Symptoms: Positive: Other Aggravating Factor(s): Nothing Alleviating Factor(s): Nothing - Allergies/Home Medications Allergies/Adverse Reactions: Allergies Allergy/AdvReac Type Severity Reaction Status Date / Time Diclofenac [From Voltaren] Allergy Severe Swelling Verified 06/14/17 19:15 Of Face,Lips,& Throat Ticlopidine [From Ticlid] Allergy Severe Unknown Verified 06/14/17 19:15 Reaction Details Penicillins Allergy Intermediate Hives Verified 06/14/17 19:15 Clopidogrel [From Plavix] Allergy Unknown Unknown Verified 06/14/17 19:15 Reaction Details PMH/Surg Hx/FS Hx/Imm Hx Endocrine/Hematology History: Reports: Hx Anticoagulant Therapy - xarelto, Hx Thyroid Disease Denies: Hx Blood Disorders, Hx Blood Transfusions, Hx Bone Marrow Disease, Hx Diabetes, Hx Systemic Lupus Erythematosus, Hx Sickle Cell Disease, Hx Anemia , Hx Unexplained Bleeding, Other Endocrine/Hematological Disorders Cardiovascular History: Reports: Hx Angioplasty, Hx Congestive Heart Failure, Hx Coronary Artery Disease, Hx Hypercholesterolemia, Hx Hypertension, Hx Valvular Heart Disease, Other Cardiovascular Problems/Disorders Denies: Hx Aneurysm, Hx Angina, Hx Auto Implanted Cardiovert Defib, Hx Cardiac Arrest, Hx Cardiomegaly, Hx Congenital Heart Disease, Hx Deep Vein Thrombosis, Hx Embolism, Hx Hypotension, Hx Pacemaker/ICD, Hx Peripheral Vascular Disease, Hx Rheumatic Fever, Hx Syncope Respiratory History: Reports: Hx Chronic Obstructive Pulmonary Disease (COPD), Hx Pneumonia, Other Respiratory Problems/Disorders Denies: Hx Asthma, Hx Chronic Bronchitis, Hx Cystic Fibrosis, Hx Lung Cancer , Hx Pleural Effusion, Hx Pulmonary Edema, Hx Pulmonary Embolism, Hx Seasonal Allergies, Hx Sleep Apnea Musculoskeletal History: Reports: Hx Back Problems, Other Musculoskeletal History - compression fracture to thoracic spine Denies: Hx Arthritis, Hx Bursitis, Hx Congenital Bone Abnormalities, Hx Fibromyalgia, Hx Gout, Hx Orthopedic Injury, Hx Osteoporosis, Hx Scoliosis, Hx Tendonitis Sensory History: Reports: Hx Contacts or Glasses, Hx Vision Problem Denies: Hx Cataracts, Hx Eye Injury, Hx Eye Prosthesis, Hx Glaucoma, Hx Legally Blind, Hx Macular Degeneration, Hx Deafness, Hx Hearing Aid, Hx Hearing Problem, Other Sensory Impairments Opthamlomology History: Reports: Hx Contacts or Glasses, Hx Vision Problem Denies: Hx Cataracts, Hx Eye Injury, Hx Eye Prosthesis, Hx Glaucoma, Hx Legally Blind, Hx Macular Degeneration, Other Sensory Impairments Neurological History: Denies: Hx Headaches, Hx Seizures, Hx Transient Ischemic Attacks (TIA) Psychiatric History: Reports: Hx Anxiety, Hx Depression - Cancer History Hx Chemotherapy: No Hx Radiation Therapy: No Hx Palliative Cancer Treatment: No - Surgical History Surgery Procedure, Year, and Place: 2011 LEFT TOTAL KNEE [id number] CARDIAC STENT [id number] 4 CARDIAC STENTS [id number], CABG x1 [place], ROBOTIC CHEST SURGERY 2013 Hx Anesthesia Reactions: No Infectious Disease History: No Infectious Disease History: Reports: Hx Hepatitis - Hepatitis 50 years ago Denies: Hx Clostridium Difficile, Hx Human Immunodeficiency Virus (HIV), Hx of Known/Suspected MRSA, Hx Shingles, Hx Tuberculosis, Hx Known/Suspected VRE, Hx Known/Suspected VRSA, History Other Infectious Disease, Traveled Outside the in Last 30 Days - Family History Known Family History: Negative: Cardiac Disease, Hypertension, Diabetes - Social History Alcohol Use: Weekly Alcohol Amount: 4x week Substance Use Type: Reports: None Smoking Status (MU): Former Smoker Type: Cigarettes Amount Used/How Often: 1PPD 30 YRS Length of Time of Smoking/Using Tobacco: 40 Have You Smoked in the Last Year: No Review of Systems Negative: Fever, Chills Positive: Other - "worst taste in my mouth, ever" Positive: Shortness Of Breath, Other - denies wheezing. Negative: Cough Positive: Other - bloating (not unusual); denies appetite changes, bowel symptoms Positive: no symptoms reported Positive: Edema - bilateral LE edema, Other - weight gain All Other Systems Reviewed And Are Negative: Yes Physical Exam Triage Information Reviewed: Yes Vital Signs On Initial Exam: Initial Vitals Temp Pulse Resp BP Pulse Ox 98.8 F 68 18 139/83 98 06/14/17 18:16 06/14/17 18:16 06/14/17 18:16 06/14/17 18:16 06/14/17 18:16 Vital Signs Reviewed: Yes Appearance: Positive: Well-Appearing, No Pain Distress Skin: Positive: Warm, Other - 3cm scab with surrounding erythema at L lees and warm to touch Head/Face: Positive: Normal Head/Face Inspection Eyes: Positive: EOMI, TRUPTI ENT: Positive: Normal ENT inspection Neck: Positive: Supple, Nontender Respiratory/Lung Sounds: Positive: Clear to Auscultation, Breath Sounds Present Cardiovascular: Positive: Murmur, Other - good capillary refill, good distal pulses Abdomen Description: Positive: Nontender, Soft Bowel Sounds: Positive: Present Musculoskeletal: Positive: Strength/ROM Intact, Other - bilateral pedal edema ( Left greater than Right) Neurological: Positive: Normal, Sensory/Motor Intact, Alert, Oriented to Person Place, Time, CN Intact II-III Psychiatric: Positive: Affect/Mood Appropriate - [place] Coma Scale Coma Scale Total: 15 Diagnostics - Vital Signs Vital Signs Temp Pulse Resp BP Pulse Ox 06/14/17 18:16 98.8 F 68 18 139/83 98 - Laboratory Lab Results: Lab Results 06/14/17 06/14/17 06/14/17 Range/Units 20:52 20:52 20:52 WBC (3.5-10.8) 10^3/ul RBC (4.0-5.4) 10^6/ul Hgb (12.0-16.0) g/dl Hct (35-47) % MCV (80-97) fL MCH (27-31) pg MCHC (31-36) g/dl RDW (10.5-15) % Plt Count (150-450) 10^3/ul MPV (7.4-10.4) um3 Neut % (Auto) (38-83) % Lymph % (Auto) (25-47) % [place] % (Auto) (1-9) % Eos % (Auto) (0-6) % Baso % (Auto) (0-2) % Absolute Neuts (auto) (1.5-7.7) 10^3/ul Absolute Lymphs (auto) (1.0-4.8) 10^3/ul Absolute Monos (auto) (0-0.8) 10^3/ul Absolute Eos (auto) (0-0.6) 10^3/ul Absolute Basos (auto) (0-0.2) 10^3/ul Absolute Nucleated RBC 10^3/ul Nucleated RBC % INR (Anticoag Therapy) 1.08 (0.89-1.11) APTT 37.0 H (26.0-36.3) seconds Sodium 139 (133-145) mmol/L Potassium 3.6 (3.5-5.0) mmol/L Chloride 104 (101-111) mmol/L Carbon Dioxide 29 (22-32) mmol/L Anion Gap 6 (2-11) mmol/L BUN 30 H (6-24) mg/dL Creatinine 1.97 H (0.51-0.95) mg/dL Est GFR ( Amer) 31.2 (>60) Est GFR (Non-Af Amer) 24.3 (>60) BUN/Creatinine Ratio 15.2 (8-20) Glucose 85 (70-100) mg/dL Lactic Acid (0.5-2.0) mmol/L Calcium 8.7 (8.6-10.3) mg/dL Magnesium 2.4 (1.9-2.7) mg/dL Total Bilirubin 0.50 (0.2-1.0) mg/dL AST 23 (13-39) U/L ALT 19 (7-52) U/L Alkaline Phosphatase 35 (34-104) U/L Troponin I 0.01 (<0.04) ng/mL C-Reactive Protein 4.78 (< 5.00) mg/L B-Natriuretic Peptide 299 H ( - 100) pg/mL Total Protein 6.3 L (6.4-8.9) g/dL Albumin 3.8 (3.2-5.2) g/dL Globulin 2.5 (2-4) g/dL Albumin/Globulin Ratio 1.5 (1-3) Lipase 19 (11.0-82.0) U/L TSH 6.64 H (0.34-5.60) mcIU/mL 06/14/17 06/14/17 Range/Units 20:52 20:52 WBC 9.7 (3.5-10.8) 10^3/ul RBC 4.64 (4.0-5.4) 10^6/ul Hgb 14.0 (12.0-16.0) g/dl Hct 42 (35-47) % MCV 91 (80-97) fL MCH 30 (27-31) pg MCHC 33 (31-36) g/dl RDW 14 (10.5-15) % Plt Count 202 (150-450) 10^3/ul MPV 10 (7.4-10.4) um3 Neut % (Auto) 79.9 (38-83) % Lymph % (Auto) 12.8 L (25-47) % [place] % (Auto) 4.9 (1-9) % Eos % (Auto) 1.6 (0-6) % Baso % (Auto) 0.8 (0-2) % Absolute Neuts (auto) 7.8 H (1.5-7.7) 10^3/ul Absolute Lymphs (auto) 1.2 (1.0-4.8) 10^3/ul Absolute Monos (auto) 0.5 (0-0.8) 10^3/ul Absolute Eos (auto) 0.2 (0-0.6) 10^3/ul Absolute Basos (auto) 0.1 (0-0.2) 10^3/ul Absolute Nucleated RBC 0 10^3/ul Nucleated RBC % 0 INR (Anticoag Therapy) (0.89-1.11) APTT (26.0-36.3) seconds Sodium (133-145) mmol/L Potassium (3.5-5.0) mmol/L Chloride (101-111) mmol/L Carbon Dioxide (22-32) mmol/L Anion Gap (2-11) mmol/L BUN (6-24) mg/dL Creatinine (0.51-0.95) mg/dL Est GFR ( Amer) (>60) Est GFR (Non-Af Amer) (>60) BUN/Creatinine Ratio (8-20) Glucose (70-100) mg/dL Lactic Acid 0.8 (0.5-2.0) mmol/L Calcium (8.6-10.3) mg/dL Magnesium (1.9-2.7) mg/dL Total Bilirubin (0.2-1.0) mg/dL AST (13-39) U/L ALT (7-52) U/L Alkaline Phosphatase (34-104) U/L Troponin I (<0.04) ng/mL C-Reactive Protein (< 5.00) mg/L B-Natriuretic Peptide ( - 100) pg/mL Total Protein (6.4-8.9) g/dL Albumin (3.2-5.2) g/dL Globulin (2-4) g/dL Albumin/Globulin Ratio (1-3) Lipase (11.0-82.0) U/L TSH (0.34-5.60) mcIU/mL Result Diagrams: 06/14/17 20:52 06/14/17 20:52 Lab Statement: Any lab studies that have been ordered have been reviewed, and results considered in the medical decision making process. - Radiology CXR Radiology Interpretation Completed By: Radiologist - BIBASILAR INFILTRATES SUGGESTIVE OF ATELECTASIS LESS LIKELY PNEUMONIA. ED physician has reviewed this radiology report and agrees. - Ultrasound No standard instances Ultrasound Interpretation Completed By: Radiologist - Venous doppler study reveals NO EVIDENCE FOR DEEP VENOUS THROMBOSIS. ED physician has reviewed this radiology report and agrees. - EKG 1940 Cardiac Rate: NL - 67 bpm EKG Rhythm: Sinus Rhythm Ectopy: None EKG Interpretation: Flat T-wave in the lateral leads Re-Evaluation - Re-Evaluation First Eval Re-Evaluation Time: 22:22 Comment: Discussed with pt XR and US results. Discussed plan for discharge. Lower Extremity Course/Dx - Course Assessment/Plan: This patient is an 82 year old F presenting to ED with a chief complaint of BLE edema since 2 weeks ago s/p accidentally hitting her L lees on a coffee table. The CC is described as erythematous, hot, not even dried up yet , and swelling around the ankles (L is bigger than the R). The patient rates the pain 0/10 in severity. Symptoms aggravated by nothing. Symptoms alleviated by nothing. Patient reports worst taste in my mouth, ever, bloating (not unusual), SOB (due to COPD, but has exacerbated in the last hour), and weight gain (2 lbs greater this morning). Patient denies wheezing, fever, chills, cough , appetite changes, bowel symptoms, urinary symptoms. CXR reveals BIBASILAR INFILTRATES SUGGESTIVE OF ATELECTASIS LESS LIKELY PNEUMONIA. Venous doppler study reveals NO EVIDENCE FOR DEEP VENOUS THROMBOSIS. ED physician has reviewed this radiology report and agrees. In the ED course, pt was given fluids. Medications reviewed. Allergies noted. BP noted and advised to follow up with PCP. Pt will be discharged. Pt is agreeable with this plan. DISCUSSED RESULTS WITH PATIENT/DAUGHTER. WILL INCREASE LASIX TO 40MG PO QD WITH CLOSE F/U WITH PMD IN THE NEXT 1-3 DAYS. RECHECK KIDNEY FUNCTION NEXT 1-3 DAYS WITH PMD. KEFLEX FOR CELLULITIS. RETURN IF WORSE. NO CRITICAL CARE TIME. - Diagnoses Provider Diagnoses: Edema, Cellulitis, Impaired renal function Discharge - Discharge Plan Condition: Stable Disposition: HOME Patient Education Materials: Leg Edema (ED), Cellulitis (ED), Impaired Kidney Function (ED) Referrals: Cameron Dasilva MD [Primary Care Provider] - Additional Instructions: FOLLOW UP WITH YOUR DOCTOR. TAKE YOUR LASIX 40MG ONCE A DAY UNTIL YOU SEE YOUR DOCTOR. CALL TOMORROW FOR FOLLOW UP IN THEW NEXT 1-3 DAYS. YOU NEED TO HAVE YOUR KIDNEY FUNCTION RECHECKED THIS WEEK WITH YOUR DOCTOR. RETURN TO THE EMERGENCY DEPARTMENT FOR ANY WORSENING OF YOUR CONDITION OR QUESTIONS OR CONCERNS. The documentation as recorded by the Barrie martell Nikita accurately reflects the service I personally performed and the decisions made by me, Ceasar Terry MD.
[2017-06-14 23:01] VITALS: BP 136/87
== END 2017-06-14 23:05 | disposition home or self-care (01) ==
LOC: ED 18:13
DX: R60.0 Localized edema (principal); L03.116 Cellulitis of left lower limb; N28.9 Disorder of kidney and ureter, unspecified; E07.9 Disorder of thyroid, unspecified; I25.10 Atherosclerotic heart disease of native coronary artery without angina pectoris; I10 Essential (primary) hypertension; I50.9 Heart failure, unspecified; Z79.01 Long term (current) use of anticoagulants; Z95.5 Presence of coronary angioplasty implant and graft; Z95.1 Presence of aortocoronary bypass graft; E78.00 Pure hypercholesterolemia, unspecified; J44.9 Chronic obstructive pulmonary disease, unspecified; F41.9 Anxiety disorder, unspecified; F32.9 Major depressive disorder, single episode, unspecified; Z96.652 Presence of left artificial knee joint; Z88.0 Allergy status to penicillin; Z88.8 Allergy status to other drugs, medicaments and biological substances; Z87.891 Personal history of nicotine dependence
CPT/HCPCS: 36415; 71010; 80053; 83605; 83690; 83735; 83880; 84443; 84484; 85025; 85610; 85730; 86140; 93005; 96374; 99282; A9270-GY; J1940

== ENCOUNTER 2017-10-01 16:18 | Observation (INO) | payer MEDICARE ==
[2017-10-01] MEDS ORDERED: Al Hydrox/Mg Hydrox/Simet LIQ* 30 ML UDC PO ONE (17:05)
[2017-10-01] MEDS ORDERED: Lidocaine 2% VISCOUS* 15 ML UDC PO ONE (17:05)
[2017-10-01] MEDS ORDERED: HYDROcodone/ACET. 7.5/325 LIQ* 15 ML UDC PO PRN (17:18)
[2017-10-01] MEDS ORDERED: Fluticasone HFA 220 mcg(NF) MDI INH PRN (17:18)
[2017-10-01] MEDS ORDERED: Magnesium Oxide TAB* 400 MG PO SCH (18:00)
[2017-10-01] MEDS ORDERED: Spiriva Inhaler DEVICE* 1 EACH DEVICE INH SCH (18:00)
[2017-10-01] MEDS ORDERED: Rivaroxaban TAB(*) 15 MG PO SCH (18:00)
--- NOTE | 2017-10-01 18:09 | RAD ---
INDICATION: Chest pain. COMPARISON: Comparison is made with a prior study from June 14, 2017. TECHNIQUE: A portable view of the chest was obtained. FINDINGS: The heart is moderately enlarged and unchanged. There are linear densities at both lung bases suggestive of atelectasis or scarring. The lungs are otherwise clear. No pleural effusion is seen. IMPRESSION: FINDINGS SUGGESTIVE OF BIBASILAR ATELECTASIS OR SCARRING.
[2017-10-01 19:01] LABS: INR 0.94 (0.77-1.02)
[2017-10-01 19:05] LABS: EGFR Non-African American 36.9 (>60)
--- NOTE | 2017-10-01 19:21 | ADMNOTE ---
Subjective Date of Service: 10/01/17 Interval History: ADMISSION HISTORY AND PHYSICAL EXAM: Allergies Allergy/AdvReac Type Severity Reaction Status Date / Time MS Diclofenac [From Voltaren] Allergy Severe Swelling Verified 06/14/17 19:15 Of Face,Lips,& Throat MS Ticlopidine [From Ticlid] Allergy Severe Unknown Verified 06/14/17 19:15 Reaction Details MS Penicillins [Penicillins] Allergy Intermediate Hives Verified 06/14/17 19:15 MS Clopidogrel [From Plavix] Allergy Unknown Unknown Verified 06/14/17 19:15 Reaction Details Home Medications Medication Instructions Recorded Confirmed Type Fluticasone HFA 220 mcg(NF) 2 puff INH BID 05/22/16 10/01/17 History [Flovent Hfa 220 Mcg(NF)] Rivaroxaban TAB(*) [Xarelto 15 15 mg PO QPM 05/22/16 10/01/17 History mg(*)] Albuterol inh POWDER (NF) [Proair 2 puff INH Q4HR PRN 09/02/16 10/01/17 History Respiclick] Aspirin EC Low Dose* [Ecotrin EC 81 mg PO DAILY 09/02/16 10/01/17 History Low Dose 81 MG*] LORazepam TAB(*) [Ativan 1 MG TAB 1 mg PO DAILY PRN 09/02/16 10/01/17 History (*)] Levothyroxine TAB* [Synthroid 100 100 mcg PO QAM 09/02/16 10/01/17 History MCG TAB*] Rosuvastatin (NF) [Crestor (NF)] 5 mg PO DAILY 09/02/16 10/01/17 History amLODIPine TAB* [Norvasc 5 mg TAB*] 2.5 mg PO DAILY 09/02/16 10/01/17 History Amiodarone TAB* [Cordarone TAB*] 200 mg PO DAILY 10/01/17 10/01/17 History Ferrous Gluconate TAB* [Fergon 325 mg PO BID 10/01/17 10/01/17 History TAB*] Furosemide TAB* [Lasix TAB*] 40 mg PO EVERY OTHER DAY 10/01/17 10/01/17 History Hydrocodone-Acetaminophen 1 tab PO Q4HR PRN 10/01/17 10/01/17 History [Hydrocodone Bitartrate/AC 7.5-325 mg] Ibandronate TAB(NF) [Boniva(NF)] 150 mg PO MONTHLY 10/01/17 10/01/17 History Magnesium Oxide TAB* [MagOx 400 800 mg PO DAILY 10/01/17 10/01/17 History TAB*] Potassium Chlor TAB* [Klor Con ER 20 meq PO QAM 10/01/17 10/01/17 History TAB*] Silver Sulfadiazine 1%* [SILVadine 1 applic TOPICAL DAILY 10/01/17 10/01/17 History 1%*] Tiotropium CAP.INH* [Spiriva 1 cap.inh INH DAILY 10/01/17 10/01/17 History CAP.INH*] Valsartan TAB* [Diovan TAB*] 20 mg PO DAILY 10/01/17 10/01/17 History HPI: The patient developed L sided chest pain earlier today. She states she did an unusual amount of upper-body exercise yesterday at her cardiac rehab program. The pain has largely subsided now. She has never had this type of chest pain before, even when she had her CT. Family History: Findings - Alzheimer's disease, prostate ca Social History: Findings - Quit smoking 20 yrs ago, no alcohol abuse. SDM is her daughter who lives in [place]. Past Medical History: Findings - CABG 2014, hypothyroid, COPD, MR, HL, tachy- jayro syndrome Review of Systems - Review of Systems Constitutional Symptoms: Negative: Weight Gain, Weight Loss, Weakness, Fatigue, Fever, Night Sweats, Unexplained Falls, Other Dermatology: Positive: Normal HEENT: Positive: Normal Eyes: Positive: Normal Thyroid: Positive: Primary Hypothyroidism Pulmonary: Positive: COPD Cardiology: Positive: Chest Pain Gastroenterology: Positive: Normal Genital - Urinary: Positive: Normal Musculoskeletal: Negative: Joint Pain, Joint Stiffness, Arthritis, Osteoporosis, Low Back Pain , Sciatica, Joint Deformities, Kyphoscoliosis, Other Endocrinology: Positive: Thyroid Problems Neurology: Positive: Normal Psychiatry: Positive: Normal Allergic/Immunologic: Negative: Hx Anaphylaxis, Hx Angioedema, Hx Environmental, Hx Seasonal, Athsma, Hx HIV, Immunocompromise, Swollen Glands LymphNodes, Other Objective Active Medications: Hydrocodone Bitart/Acetaminophen (Nortab 7.5/325 Liq*) 15 ml PO Q4H PRN PRN Reason: PAIN Amiodarone HCl (Cordarone Tab*) 100 mg PO BID [facility] Amlodipine Besylate (Norvasc Tab*) 2.5 mg PO DAILY [facility] Aspirin (Aspirin Ec Low Dose*) 81 mg PO DAILY [facility] Atorvastatin Calcium (Lipitor*) 10 mg PO DAILY [facility] PRN Reason: Protocol Bupropion HCl (Wellbutrin Tab*) 75 mg PO BID@0800,1700 [facility] Device (Tiotropium Inhaler Device*) 0 each .SEE ORDER ONCE ONE Stop: 10/02/17 09:01 Fluticasone Propionate (Flovent Hfa 220 Mcg(Nf)) 2 puff INH DAILY PRN PRN Reason: SHORTNESS OF BREATH Levothyroxine Sodium (Synthroid Tab*) 100 mcg PO DAILY@0600 [facility] Magnesium Oxide (Magox 400 Tab*) 800 mg PO QPM [facility] Mometasone Furoate/Formoterol Fumar (Dulera 200/5 Mdi*) 2 puff INH BID [facility] Potassium Chloride (Klor Con Er Tab*) 40 meq PO DAILY [facility] Rivaroxaban (Xarelto(*)) 15 mg PO QPM [facility] Tiotropium [place] (Spiriva Cap.Inh*) 1 cap INH DAILY [facility] Valsartan (Diovan Tab*) 20 mg PO QID [facility] Vital Signs - 8 hr 10/01/17 10/01/17 10/01/17 17:33 18:00 18:05 Temperature Pulse Rate 65 Respiratory 16 19 19 Rate Blood Pressure 148/77 168/63 162/68 (mmHg) O2 Sat by Pulse 96 Oximetry 10/01/17 18:17 Temperature 98.4 F Pulse Rate 66 Respiratory 18 Rate Blood Pressure 162/68 (mmHg) O2 Sat by Pulse 95 Oximetry Oxygen Devices in Use Now: None Appearance: Alert, partly up on ED stretcher. In good spirits. Looks comfortable. Neck: NL Appearance and Movements; NL JVP, No Thyroid Enlargement, Masses Respiratory: Symmetrical Chest Expansion and Respiratory Effort, Clear to Auscultation, Clear to Percussion, - - mod thoracic kyphosis Cardiovascular: RRR, No Edema, - - 1-2/6 systolic murmur RSB Extremities: No Edema, No Clubbing, Cyanosis, - Skin: No Rash or Ulcers, No Nodules or Sclerosis, - Neurological: Alert and Oriented x 3, NL Sensation Result Diagrams: 10/01/17 18:10 Assess/Plan/Problems-Billing Assessment: - Patient Problems (1) Chest pain Current Visit: Yes Status: Acute Code(s): R07.9 - CHEST PAIN, UNSPECIFIED SNOMED Code(s): 91666506 Comment: Second troponin level, tele, stress test. (2) CAD (coronary artery disease) Current Visit: Yes Status: Acute Code(s): I25.10 - ATHSCL HEART DISEASE OF [place] CORONARY ARTERY W/O ANG PCTRS SNOMED Code(s): 96378009 Comment: Continue statin, ASA. (3) COPD (chronic obstructive pulmonary disease) Current Visit: No Status: Acute Priority: High Code(s): J44.9 - CHRONIC OBSTRUCTIVE PULMONARY DISEASE, UNSPECIFIED SNOMED Code(s): 44666533 Comment: Continue home inhalers. (4) PAF (paroxysmal atrial fibrillation) Current Visit: Yes Status: Acute Code(s): I48.0 - PAROXYSMAL ATRIAL FIBRILLATION SNOMED Code(s): 444186414 Comment: Continue rivaroxaban, amiodarone. (5) HTN (hypertension) Current Visit: No Status: Acute Code(s): I10 - ESSENTIAL (PRIMARY) HYPERTENSION SNOMED Code(s): 46768692 Comment: Continue amlodipine and valsartan.
[2017-10-01] MEDS: Mometasone/Formoter 200/5 MDI INH SCH (19:52)
[2017-10-01] MEDS: buPROPion TAB* 75 MG PO SCH (19:57)
[2017-10-01] MEDS: Amiodarone TAB* 200 MG PO SCH (19:58)
[2017-10-01 20:44] LABS: ABS Basophils 0.1 10^3/ul (0-0.2); ABS Eosinophils 0.1 10^3/ul (0-0.6); ABS Lymphocytes 2.6 10^3/ul (1.0-4.8); ABS Monocytes 0.6 10^3/ul (0-0.8); ABS Neutrophils 6.5 10^3/ul (1.5-7.7); ABS Nucleated RBC 0 10^3/ul; Eosinophil % 1.4 % (0-6); Hematocrit 41 % (35-47); Hemoglobin 13.5 g/dl (12.0-16.0); Lymphocyte % 25.9 % (25-47); Mean Corpuscular HGB Conc 33 g/dl (31-36); Mean Corpuscular Hemoglobin 30 pg (27-31); Mean Corpuscular Volume 90 fL (80-97); Mean Platelet Volume 10 um3 (7.4-10.4); Nucleated Red Blood Cells % 0; Platelet Count 204 10^3/ul (150-450); Red Blood Count 4.54 10^6/ul (4.0-5.4); Red Cell Distribution Width 14 % (10.5-15); White Blood Count 9.9 10^3/ul (3.5-10.8)
[2017-10-01] MEDS ORDERED: Valsartan TAB* 40 MG PO SCH (21:00)
[2017-10-01] MEDS ORDERED: Fluticasone HFA 220 mcg(NF) MDI INH SCH (21:00)
[2017-10-02] MEDS ORDERED: Levothyroxine TAB* 100 MCG TAB PO SCH (06:00)
[2017-10-02] MEDS: Mometasone/Formoter 200/5 MDI INH SCH (07:32)
[2017-10-02] MEDS: Amiodarone TAB* 200 MG PO SCH (08:42)
[2017-10-02] MEDS: buPROPion TAB* 75 MG PO SCH (08:42)
[2017-10-02] MEDS ORDERED: Tiotropium CAP.INH* CAP.INH/18 MCG (USE ORDER SET !) INH SCH ×3 (09:00)
[2017-10-02] MEDS ORDERED: Spiriva Inhaler DEVICE* 1 EACH DEVICE ONE (09:00)
[2017-10-02] MEDS ORDERED: amLODIPine TAB* 5 MG PO SCH (09:00)
[2017-10-02] MEDS ORDERED: Aspirin EC Low Dose* 81 MG TAB.EC PO SCH (09:00)
[2017-10-02] MEDS ORDERED: Valsartan TAB* 40 MG PO SCH (09:00)
[2017-10-02] MEDS ORDERED: Potassium Chlor TAB* 20 MEQ TAB.ER PO SCH (09:00)
[2017-10-02] MEDS ORDERED: Atorvastatin* 10 MG TAB PO SCH (09:00)
[2017-10-02 12:32] VITALS: BP 129/60
[2017-10-02] MEDS ORDERED: DOBUTamine 2000 MCG/ML IVPREMX 0 MG/0 ML BAG IV ONE (15:10)
--- NOTE | 2017-10-02 15:16 | ED ---
Blair Ascencio Jennifer, scribed for Arian Campbell MD on 10/01/17 at 1726 . HPI Chest Pain - HPI Summary HPI Summary: The patient is an 82 year old female who was recommended to the ED by her PCP today. The patient explains that she over-exercised yesterday and had chest pain all night. She adds that she had difficulty breathing with deep breaths, which is now gone in the ED. The patient waited until this morning to come to the ED after her pain worsened. - History of Current Complaint Chief Complaint: EDChestPainROMI Time Seen by Provider: 10/01/17 16:45 Hx Obtained From: Patient Onset/Duration: Started Days Ago - yesterday, Still Present, Worse Since Timing: Constant Initial Severity: Mild Current Severity: Mild Pain Intensity: 0 Pain Scale Used: 0-10 Numeric Aggravating Factor(s): Exertion Alleviating Factor(s): Nothing Associated Signs and Symptoms: Positive: Other: - Difficulty breathing - Additional Pertinent History Primary Care Physician: PAOLO - Allergy/Home Medications Allergies/Adverse Reactions: Allergies Allergy/AdvReac Type Severity Reaction Status Date / Time MS Diclofenac [From Voltaren] Allergy Severe Swelling Verified 06/14/17 19:15 Of Face,Lips,& Throat MS Ticlopidine [From Ticlid] Allergy Severe Unknown Verified 06/14/17 19:15 Reaction Details MS Penicillins [Penicillins] Allergy Intermediate Hives Verified 06/14/17 19:15 MS Clopidogrel [From Plavix] Allergy Unknown Unknown Verified 06/14/17 19:15 Reaction Details Home Medications: Home Medications Amiodarone TAB* [Cordarone TAB*] 200 mg PO DAILY 10/01/17 [History Confirmed 09/17] Ferrous Gluconate TAB* [Fergon TAB*] 325 mg PO BID 10/01/17 [History Confirmed 10/01/17] Furosemide TAB* [Lasix TAB*] 40 mg PO EVERY OTHER DAY 10/01/17 [History Confirmed 10/01/17] Hydrocodone-Acetaminophen [Hydrocodone Bitartrate/AC 7.5-325 mg] 1 tab PO Q4HR PRN 10/01/17 [History Confirmed 10/01/17] Ibandronate TAB(NF) [Boniva(NF)] 150 mg PO MONTHLY 10/01/17 [History Confirmed 10/01/17] Magnesium Oxide TAB* [MagOx 400 TAB*] 800 mg PO DAILY 10/01/17 [History Confirmed 10/01/17] Potassium Chlor TAB* [Klor Con ER TAB*] 20 meq PO QAM 10/01/17 [History Confirmed 10/01/17] Silver Sulfadiazine 1%* [SILVadine 1%*] 1 applic TOPICAL DAILY 10/01/17 [ History Confirmed 10/01/17] Tiotropium CAP.INH* [Spiriva CAP.INH*] 1 cap.inh INH DAILY 10/01/17 [History Confirmed 10/01/17] Valsartan TAB* [Diovan TAB*] 20 mg PO DAILY 10/01/17 [History Confirmed 10/01/17 ] PMH/Surg Hx/FS Hx/Imm Hx Endocrine/Hematology History: Reports: Hx Anticoagulant Therapy - xarelto, Hx Thyroid Disease Denies: Hx Blood Disorders, Hx Blood Transfusions, Hx Bone Marrow Disease, Hx Diabetes, Hx Systemic Lupus Erythematosus, Hx Sickle Cell Disease, Hx Anemia , Hx Unexplained Bleeding, Other Endocrine/Hematological Disorders Cardiovascular History: Reports: Hx Angioplasty, Hx Congestive Heart Failure, Hx Coronary Artery Disease, Hx Hypercholesterolemia, Hx Hypertension, Hx Valvular Heart Disease, Other Cardiovascular Problems/Disorders Denies: Hx Aneurysm, Hx Angina, Hx Auto Implanted Cardiovert Defib, Hx Cardiac Arrest, Hx Cardiomegaly, Hx Congenital Heart Disease, Hx Deep Vein Thrombosis, Hx Embolism, Hx Hypotension, Hx Pacemaker/ICD, Hx Peripheral Vascular Disease, Hx Rheumatic Fever, Hx Syncope Respiratory History: Reports: Hx Chronic Obstructive Pulmonary Disease (COPD), Hx Pneumonia, Other Respiratory Problems/Disorders Denies: Hx Asthma, Hx Chronic Bronchitis, Hx Cystic Fibrosis, Hx Lung Cancer , Hx Pleural Effusion, Hx Pulmonary Edema, Hx Pulmonary Embolism, Hx Seasonal Allergies, Hx Sleep Apnea Musculoskeletal History: Reports: Hx Back Problems, Other Musculoskeletal History - compression fracture to thoracic spine Denies: Hx Arthritis, Hx Bursitis, Hx Congenital Bone Abnormalities, Hx Fibromyalgia, Hx Gout, Hx Orthopedic Injury, Hx Osteoporosis, Hx Scoliosis, Hx Tendonitis Sensory History: Reports: Hx Contacts or Glasses, Hx Vision Problem Denies: Hx Cataracts, Hx Eye Injury, Hx Eye Prosthesis, Hx Glaucoma, Hx Legally Blind, Hx Macular Degeneration, Hx Deafness, Hx Hearing Aid, Hx Hearing Problem, Other Sensory Impairments Opthamlomology History: Reports: Hx Contacts or Glasses, Hx Vision Problem Denies: Hx Cataracts, Hx Eye Injury, Hx Eye Prosthesis, Hx Glaucoma, Hx Legally Blind, Hx Macular Degeneration, Other Sensory Impairments Neurological History: Denies: Hx Headaches, Hx Seizures, Hx Transient Ischemic Attacks (TIA) Psychiatric History: Reports: Hx Anxiety, Hx Depression - Cancer History Hx Chemotherapy: No Hx Radiation Therapy: No Hx Palliative Cancer Treatment: No - Surgical History Surgery Procedure, Year, and Place: 2011 LEFT TOTAL KNEE [id number] CARDIAC STENT [id number] CARDIAC STENTS [id number], CABG x1 [place], ROBOTIC CHEST SURGERY 2013 Hx Anesthesia Reactions: No - Immunization History Date of Influenza Vaccine: 06/16 Infectious Disease History: No Infectious Disease History: Reports: Hx Hepatitis - Hepatitis 50 years ago Denies: Hx Clostridium Difficile, Hx Human Immunodeficiency Virus (HIV), Hx of Known/Suspected MRSA, Hx Shingles, Hx Tuberculosis, Hx Known/Suspected VRE, Hx Known/Suspected VRSA, History Other Infectious Disease, Traveled Outside the in Last 30 Days - Family History Known Family History: Negative: Cardiac Disease, Hypertension, Diabetes - Social History Alcohol Use: Weekly Alcohol Amount: 4x week Substance Use Type: Reports: None Smoking Status (MU): Former Smoker Type: Cigarettes Amount Used/How Often: 1PPD 30 YRS Length of Time of Smoking/Using Tobacco: 40 Have You Smoked in the Last Year: No Review of Systems Positive: Chest Pain Positive: Shortness Of Breath All Other Systems Reviewed And Are Negative: Yes Physical Exam - Summary Physical Exam Summary: Appearance: The patient is well-nourished in no acute distress and in no acute pain. Skin: The skin is warm and dry and skin color reflects adequate perfusion. HEENT: ~The head is normocephalic and atraumatic. The pupils are equal and reactive. The conjunctivae are clear and without drainage. ~Nares are patent and without drainage. ~Mouth reveals moist mucous membranes and the throat is without erythema and exudate. ~The external ears are intact. The ear canals are patent and without drainage. The tympanic membranes are intact. Neck: the neck is supple with full range of motion and non-tender. There are no carotid bruits. ~There is no neck vein distension. Respiratory: Chest is non-tender. ~Lungs are clear to auscultation and breath sounds are symmetrical and equal. Cardiovascular: Heart is regular rate and rhythm. ~There is no murmur or rub auscultated. ~~There is no peripheral edema and pulses are symmetrical and equal. Abdomen: The abdomen is soft and non-tender. ~There are normal bowel sounds heard in all four quadrants and there is no organomegaly palpated. Musculoskeletal: There is no back tenderness noted. ~Extremities are non-tender with full range of motion. ~There is good capillary refill. ~There is no peripheral edema or calf tenderness elicited. Neurological: Patient is alert and oriented to person, place and time. ~The patient has symmetrical motor strength in all four extremities. ~Cranial nerves are grossly intact. Deep tendon reflexes are symmetrical and equal in all four extremities. Psychiatric: The patient has an appropriate affect and does not exhibit any anxiety or depression. Triage Information Reviewed: Yes Vital Signs On Initial Exam: Initial Vitals Temp Pulse Resp BP Pulse Ox 98.2 F 64 19 145/90 93 10/01/17 16:32 10/01/17 16:32 10/01/17 16:32 10/01/17 16:32 10/01/17 16:32 Vital Signs Reviewed: Yes Diagnostics - Vital Signs Vital Signs Temp Pulse Resp BP Pulse Ox 10/01/17 17:02 17 10/01/17 17:00 99.3 F 67 20 147/100 93 10/01/17 16:32 98.2 F 64 19 145/90 93 - Laboratory Result Diagrams: 10/01/17 20:36 10/01/17 18:10 Lab Statement: Any lab studies that have been ordered have been reviewed, and results considered in the medical decision making process. - Radiology CXR Xray Interpretation: Positive (See Comments) - FINDINGS SUGGESTIVE OF BIBASILAR ATELECTASIS OR SCARRING. Dr. Campbell has reviewed this report. Radiology Interpretation Completed By: Radiologist - EKG 17:32 Cardiac Rate: NL EKG Rhythm: Sinus Rhythm - 65 BPM EKG Interpretation: QS waves in V1V2 EKG Comparison: No Significant Change - No significant changes from 08/18/17 Chest Pain Course/Dx - Course Course Of Treatment: Ms. Ramon has had chest pain on the left side all night since exercising yesterday. She went to her PMD and he sent her over to be admitted to the hospitalist service. They are seeing her now. We gerri labs and placed her on a monitor with IV in place. - Chest Pain Differential Diagnosis/HQI/PQRI: Other: - CP - Diagnoses Provider Diagnoses: Chest pain - Provider Notifications Discussed Care Of Patient With: Sugar Yu Time Discussed With Above Provider: 17:48 Instructed by Provider To: Other - Consulted Dr. Yu who accepts pt for admission. Discharge - Discharge Plan Condition: Stable Disposition: ADMITTED TO [facility] documentation as recorded by the Blair martell Jennifer accurately reflects the service I personally performed and the decisions made by , Arian Campbell MD.
--- NOTE | 2017-10-03 01:18 | DS ---
CC: Dr. Dasilva; Dr. Abraham DISCHARGE SUMMARY: DATE OF ADMISSION: DATE OF DISCHARGE: 10/02/17 HOSPITAL COURSE: This 82-year-old woman was presented with chest pain. She went to see her primary care physician, who was not available. She saw Dr. Marin. She had been at the gym doing cardiac re hab at [employer]. She said she thought she had over did it on the arm exercises. Her chest fel t sore. She had never had chest pain before even when she had an AR in the past. She was admitted to a telemetry unit, the pain subsided. A chemical stress test was ordered; however , this was explained to her what the plan was. When time came to do it, she said she could not do a chemical stress test because she could not put her head in the scanner and got very fidgety and she r efused to do it. I tried to do a stress echo with possible conversions to dobutamine. Dr. 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 Also, she has a history of atrial fibrillation and dobutamine m ight precipitate another episode of atrial fibrillation. I think the patient would best be served by reviewing her situation with her primary behavioral health clinician, Dr Татьяна Abraham, which she is very happy to do. I have made no changes in her medications. FINAL DIAGNOSES: 1. Atypical chest pain. 2. Coronary artery disease. 3. Chronic obstructive pulmonary disease. 4. Paroxysmal atrial fibrillation. 5. Hypertension. DISCHARGE MEDICATIONS: 1. Amiodarone 200 mg once daily. 2. Bupropion 75 mg b.i.d. 3. Rivaroxaban 15 mg h.s. 4. Fluticasone 220 mcg 2 puffs b.i.d. 5. Lorazepam 1 mg daily p.r.n. 6. Levothyroxine 100 mcg daily. 7. Rosuvastatin 5 mg h.s. 8. Aspirin 81 mg daily. 9. Albuterol powder 2 puffs every 4 hours p.r.n. 10. Amlodipine 2.5 mg daily. 11. Valsartan 20 mg daily. 12. Ferrous gluconate 325 mg b.i.d. 13. Magnesium oxide 800 mg daily. 14. Potassium chloride 20 mEq daily. 15. Hydrocodone/acetaminophen 7.5/325 one every 4 hours p.r.n. 16. Furosemide 40 mg daily. 17. Ibandronate 150 mg monthly. 18. Tiotropium 1 capsule daily. 19. Sulfadiazine 1 daily. [id number]/[facility] #: [id number]
== END 2017-10-02 18:02 | disposition home or self-care (01) ==
LOC: ED 16:18 → MEDTELE 17:16
PROVIDERS: ADMIT Internal Medicine; ATTEND Internal Medicine
DX: R07.9 Chest pain, unspecified (principal); I25.10 Atherosclerotic heart disease of native coronary artery without angina pectoris; J44.9 Chronic obstructive pulmonary disease, unspecified; I48.0 Paroxysmal atrial fibrillation; I10 Essential (primary) hypertension; Z88.0 Allergy status to penicillin; R06.02 Shortness of breath; Z79.01 Long term (current) use of anticoagulants; Z86.79 Personal history of other diseases of the circulatory system; Z87.09 Personal history of other diseases of the respiratory system; Z87.891 Personal history of nicotine dependence; Z79.82 Long term (current) use of aspirin
CPT/HCPCS: 36415; 71045; 80053; 83605; 84443; 84484; 85025; 85379; 85610; 93005; 94640; 99284; A9270-GY; G0378; J1250

== ENCOUNTER 2017-10-18 13:45 | Emergency (ER) | payer MEDICARE ==
[2017-10-18] MEDS ORDERED: NS 0.9% 1000 ML* 1,000 ML IV ONE (14:38)
[2017-10-18] MEDS ORDERED: Ondansetron INJ* 2 MG/ML VIAL IV ONE (14:38)
[2017-10-18] MEDS ORDERED: HYDROmorphone INJ* 1 MG/ML CARPUJECT SYRINGE IV ONE (14:38)
[2017-10-18] MEDS ORDERED: Ondansetron INJ* 2 MG/ML VIAL ONE (14:44)
[2017-10-18] MEDS ORDERED: HYDROmorphone INJ* 1 MG/ML CARPUJECT SYRINGE ONE (14:46)
[2017-10-18 15:11] LABS: Hematocrit 47 % (35-47); Hemoglobin 15.7 g/dl (12.0-16.0); Mean Corpuscular HGB Conc 33 g/dl (31-36); Mean Corpuscular Hemoglobin 29 pg (27-31); Mean Corpuscular Volume 89 fL (80-97); Mean Platelet Volume 9 um3 (7.4-10.4); Platelet Count 285 10^3/ul (150-450); Red Blood Count 5.34 10^6/ul (4.0-5.4); Red Cell Distribution Width 14 % (10.5-15); White Blood Count 22.4 10^3/ul (3.5-10.8)
--- NOTE | 2017-10-18 15:42 | RAD ---
INDICATION: Right flank abdominal pain. COMPARISON: Comparison is made with a prior CT of the pelvis from February 22, 2014. TECHNIQUE: A CT scan of the abdomen and pelvis was performed without intravenous or oral contrast. Contiguous axial sections were obtained from the lung bases through the symphysis pubis. Images were reconstructed in the coronal and sagittal planes. FINDINGS: There are small mainly linear infiltrates at both lung bases suggestive of atelectasis. No pleural effusion is present. The liver and spleen are normal in size without significant focal abnormality on this noncontrast study. There are multiple calcified gallstones. No gallbladder thickening is seen. The pancreas appears to be within normal limits. The adrenal glands appear to be within normal limits. The kidneys are slightly small in size. There are calcifications which project over the medullary portions of both kidneys which are likely vascular in etiology. No hydronephrosis is seen. There is a 1.6 cm hypodense area in the upper pole of the right kidney suggestive of a cyst on this noncontrast study. No bladder calculi are seen. The aorta is normal in caliber with severe calcific plaque present. No significant enlarged retroperitoneal lymph nodes are seen. The stomach, small and large bowel appear nondistended. There is a tubular structure located posteriorly in the right lower quadrant which is dilated with internal calcifications measuring up to 2.2 cm in diameter with surrounding interstitial stranding in the adjacent mesenteric fat most consistent with acute appendicitis. The uterus is normal in size and retroverted. There is a mass in the left adnexal region measuring 4.2 x 3.5 x 4.7 cm size which previously measured 4.0 x 3.0 x 4.9 cm in size. There is a small amount of free intraperitoneal fluid in the cul-de-sac and right paracolic gutter. No free intraperitoneal air is seen. No significant focal osseous abnormality is seen. The results of this exam were called to referring clinician. IMPRESSION: 1. FINDINGS MOST CONSISTENT WITH ACUTE APPENDICITIS. 2. CHOLELITHIASIS WITHOUT EVIDENCE FOR ACUTE CHOLECYSTITIS. 3. LEFT ADNEXAL MASS, UNCHANGED SIGNIFICANTLY.
--- NOTE | 2017-10-18 16:07 | RAD ---
INDICATION: Cough. COMPARISON: Comparison is made with prior chest x-ray studies from March 20, 2017 and October 01, 2017. TECHNIQUE: A portable view of the chest was obtained. FINDINGS: The heart appears mildly enlarged. The lungs are underinflated. There are bibasilar infiltrates which appear unchanged. No pleural effusion is seen. IMPRESSION: LOW LUNG VOLUMES AND BIBASILAR INFILTRATES SUGGESTIVE OF ATELECTASIS LESS LIKELY PNEUMONIA.
--- NOTE | 2017-10-18 16:55 | ED ---
Shyla Ascencio Thomas, scribed for Arian Campbell MD on 10/18/17 at 1431 . Abdominal Pain/Female - HPI Summary HPI Summary: The patient is an 82 year old female complaining of right-sided abdominal pain that began this morning at 01:00. She rates the pain 5/10. The pain waxes and wanes, and she describes the pain as cramping. The patient additionally complains of dry cough for the last week. The patient was diagnosed with pneumonia a week ago and she has been on doxycycline and prednisone. The patient denies nausea and dysuria. She does not remember the date of her last normal BM. She normally has a BM each day. - History of Current Complaint Chief Complaint: EDAbdPain Stated Complaint: ABD PAIN Time Seen by Provider: 10/18/17 14:06 Hx Obtained From: Patient Onset/Duration: Lasting Hours - onset this AM at 01:00, Still Present Timing: Constant - waxes and wanes, though Severity Currently: Moderate Pain Intensity: 5 Pain Scale Used: 0-10 Numeric Location: Other - Right-sided Character: Cramping Aggravating Factor(s): Other: - Palpation, cough Alleviating Factor(s): Nothing Associated Signs and Symptoms: Positive: Other: - Cough; NEGATIVE: nausea, dysuria. Negative: Nausea Allergies/Adverse Reactions: Allergies Allergy/AdvReac Type Severity Reaction Status Date / Time MS Diclofenac [From Voltaren] Allergy Severe Swelling Verified 06/14/17 19:15 Of Face,Lips,& Throat MS Ticlopidine [From Ticlid] Allergy Severe Unknown Verified 06/14/17 19:15 Reaction Details MS Penicillins [Penicillins] Allergy Intermediate Hives Verified 06/14/17 19:15 MS Clopidogrel [From Plavix] Allergy Unknown Unknown Verified 06/14/17 19:15 Reaction Details Home Medications: Home Medications Amiodarone TAB* [Cordarone TAB*] 100 mg PO DAILY 10/18/17 [History Confirmed ] Calcium Carbonate [Calcium] 500 mg PO DAILY 10/18/17 [History Confirmed 10/18/17 ] DOXYcycline CAP(*) [DOXYcycline 100MG CAP(*)] 100 mg PO BID 10/18/17 [History Confirmed 10/18/17] Senna TAB* [Senokot TAB*] 1 tab PO DAILY 10/18/17 [History Confirmed 10/18/17] PMH/Surg Hx/FS Hx/Imm Hx Endocrine/Hematology History: Reports: Hx Anticoagulant Therapy - xarelto, Hx Thyroid Disease Denies: Hx Blood Disorders, Hx Blood Transfusions, Hx Bone Marrow Disease, Hx Diabetes, Hx Systemic Lupus Erythematosus, Hx Sickle Cell Disease, Hx Anemia , Hx Unexplained Bleeding, Other Endocrine/Hematological Disorders Cardiovascular History: Reports: Hx Angioplasty, Hx Congestive Heart Failure, Hx Coronary Artery Disease, Hx Hypercholesterolemia, Hx Hypertension, Hx Myocardial Infarction, Hx Valvular Heart Disease, Other Cardiovascular Problems/ Disorders Denies: Hx Aneurysm, Hx Angina, Hx Auto Implanted Cardiovert Defib, Hx Cardiac Arrest, Hx Cardiomegaly, Hx Congenital Heart Disease, Hx Deep Vein Thrombosis, Hx Embolism, Hx Hypotension, Hx Pacemaker/ICD, Hx Peripheral Vascular Disease, Hx Rheumatic Fever, Hx Syncope Respiratory History: Reports: Hx Chronic Obstructive Pulmonary Disease (COPD), Hx Pneumonia, Other Respiratory Problems/Disorders Denies: Hx Asthma, Hx Chronic Bronchitis, Hx Cystic Fibrosis, Hx Lung Cancer , Hx Pleural Effusion, Hx Pulmonary Edema, Hx Pulmonary Embolism, Hx Seasonal Allergies, Hx Sleep Apnea Musculoskeletal History: Reports: Hx Back Problems, Other Musculoskeletal History - compression fracture to thoracic spine Denies: Hx Arthritis, Hx Bursitis, Hx Congenital Bone Abnormalities, Hx Fibromyalgia, Hx Gout, Hx Orthopedic Injury, Hx Osteoporosis, Hx Scoliosis, Hx Tendonitis Sensory History: Reports: Hx Contacts or Glasses, Hx Vision Problem Denies: Hx Cataracts, Hx Eye Injury, Hx Eye Prosthesis, Hx Glaucoma, Hx Legally Blind, Hx Macular Degeneration, Hx Deafness, Hx Hearing Aid, Hx Hearing Problem, Other Sensory Impairments Opthamlomology History: Reports: Hx Contacts or Glasses, Hx Vision Problem Denies: Hx Cataracts, Hx Eye Injury, Hx Eye Prosthesis, Hx Glaucoma, Hx Legally Blind, Hx Macular Degeneration, Other Sensory Impairments Neurological History: Denies: Hx Headaches, Hx Seizures, Hx Transient Ischemic Attacks (TIA) Psychiatric History: Reports: Hx Anxiety, Hx Depression - Cancer History Hx Chemotherapy: No Hx Radiation Therapy: No Hx Palliative Cancer Treatment: No - Surgical History Surgery Procedure, Year, and Place: 2011 LEFT TOTAL KNEE [id number] CARDIAC STENT [id number] 4 CARDIAC STENTS [id number], CABG x1 [facility], ROBOTIC CHEST SURGERY 2013 Hx Anesthesia Reactions: No - Immunization History Date of Influenza Vaccine: 06/16 Infectious Disease History: No Infectious Disease History: Reports: Hx Hepatitis - Hepatitis 50 years ago Denies: Hx Clostridium Difficile, Hx Human Immunodeficiency Virus (HIV), Hx of Known/Suspected MRSA, Hx Shingles, Hx Tuberculosis, Hx Known/Suspected VRE, Hx Known/Suspected VRSA, History Other Infectious Disease, Traveled Outside the [place] in Last 30 Days - Family History Known Family History: Negative: Cardiac Disease, Hypertension, Diabetes - Social History Alcohol Use: Weekly Alcohol Amount: 4x week Substance Use Type: Reports: None Smoking Status (MU): Former Smoker Type: Cigarettes Amount Used/How Often: 1PPD 30 YRS Length of Time of Smoking/Using Tobacco: 40 Have You Smoked in the Last Year: No Review of Systems Negative: Fever Positive: Cough Positive: Abdominal Pain. Negative: Nausea Negative: dysuria All Other Systems Reviewed And Are Negative: Yes Physical Exam - Summary Physical Exam Summary: Appearance: The patient is well-nourished in no acute distress and in no acute pain. Skin: The skin is warm and dry and skin color reflects adequate perfusion. HEENT: The head is normocephalic and atraumatic. The pupils are equal and reactive. The conjunctivae are clear and without drainage. Nares are patent and without drainage. Mouth reveals moist mucous membranes and the throat is without erythema and exudate. The external ears are intact. The ear canals are patent and without drainage. The tympanic membranes are intact. Neck: the neck is supple with full range of motion and non-tender. There are no carotid bruits. There is no neck vein distension. Respiratory: Chest is non-tender. Lungs are clear to auscultation and breath sounds are symmetrical and equal. Cardiovascular: Heart is regular rate and rhythm. There is no murmur or rub auscultated. There is no peripheral edema and pulses are symmetrical and equal. Abdomen: The abdomen is soft. There is RUQ and RLQ tenderness. There are normal bowel sounds heard in all four quadrants and there is no organomegaly palpated. Musculoskeletal: There is no back tenderness noted. Extremities are non-tender with full range of motion. There is good capillary refill. There is no peripheral edema or calf tenderness elicited. Neurological: Patient is alert and oriented to person, place and time. The patient has symmetrical motor strength in all four extremities. Cranial nerves are grossly intact. Deep tendon reflexes are symmetrical and equal in all four extremities. Psychiatric: The patient has an appropriate affect and does not exhibit any anxiety or depression. Triage Information Reviewed: Yes Vital Signs On Initial Exam: Initial Vitals Temp Pulse Resp BP Pulse Ox 99 F 71 18 116/50 95 10/18/17 14:00 10/18/17 14:00 10/18/17 14:00 10/18/17 14:00 10/18/17 14:00 Vital Signs Reviewed: Yes Diagnostics - Vital Signs Vital Signs Temp Pulse Resp BP Pulse Ox 10/18/17 14:00 99 F 71 18 116/50 95 - Laboratory Lab Results: Lab Results 10/18/17 10/18/17 10/18/17 Range/Units 15:00 15:00 15:00 WBC 22.4 H (3.5-10.8) 10^3/ul RBC 5.34 (4.0-5.4) 10^6/ul Hgb 15.7 (12.0-16.0) g/dl Hct 47 (35-47) % MCV 89 (80-97) fL MCH 29 (27-31) pg MCHC 33 (31-36) g/dl RDW 14 (10.5-15) % Plt Count 285 (150-450) 10^3/ul MPV 9 (7.4-10.4) um3 Neut % (Auto) Pending Lymph % (Auto) Pending Bonner % (Auto) Pending Eos % (Auto) Pending Baso % (Auto) Pending Absolute Neuts (auto) Pending Absolute Lymphs (auto) Pending Absolute Monos (auto) Pending Absolute Eos (auto) Pending Absolute Basos (auto) Pending Absolute Nucleated RBC Pending Nucleated RBC % Pending Sodium 136 (133-145) mmol/L Potassium 3.6 (3.5-5.0) mmol/L Chloride 98 L (101-111) mmol/L Carbon Dioxide 29 (22-32) mmol/L Anion Gap 9 (2-11) mmol/L BUN 32 H (6-24) mg/dL Creatinine 1.40 H (0.51-0.95) mg/dL Est GFR ( Amer) 46.3 (>60) Est GFR (Non-Af Amer) 36.0 (>60) BUN/Creatinine Ratio 22.9 H (8-20) Glucose 92 (70-100) mg/dL Lactic Acid 1.2 (0.5-2.0) mmol/L Calcium 9.1 (8.6-10.3) mg/dL Total Bilirubin 1.00 (0.2-1.0) mg/dL AST 25 (13-39) U/L ALT 46 (7-52) U/L Alkaline Phosphatase 45 (34-104) U/L C-Reactive Protein 54.48 H (< 5.00) mg/L Total Protein 6.5 (6.4-8.9) g/dL Albumin 3.4 (3.2-5.2) g/dL Globulin 3.1 (2-4) g/dL Albumin/Globulin Ratio 1.1 (1-3) Lipase 14 (11.0-82.0) U/L Result Diagrams: 10/18/17 15:00 10/18/17 15:00 Lab Statement: Any lab studies that have been ordered have been reviewed, and results considered in the medical decision making process. - Radiology CXR Xray Interpretation: No Acute Changes - EMERGENCY DEPARTMENT LOW LUNG VOLUMES AND BIBASILAR INFILTRATES SUGGESTIVE OF ATELECTASIS LESS LIKELY PNEUMONIA. Dr. Campbell has reviewed this report. Radiology Interpretation Completed By: Radiologist - CT CT Abdomen/Pelvis CT Interpretation: Positive (See Comments) - 1. FINDINGS MOST CONSISTENT WITH ACUTE APPENDICITIS. 2. CHOLELITHIASIS WITHOUT EVIDENCE FOR ACUTE CHOLECYSTITIS. 3. LEFT ADNEXAL MASS, UNCHANGED SIGNIFICANTLY. Dr. Campbell has reviewed this report. CT Interpretation Completed By: Radiologist - EKG 16:00 Cardiac Rate: NL EKG Rhythm: Sinus Rhythm - at 72 BPM EKG Interpretation: LAD. Nonspecific lateral changes, unchanged from 10/01/17. Abdominal Pain Fem Course/Dx - Course Course Of Treatment: Ms. Ramon presented with quite a bit of RLQ pain that started during the night. She hasn't had an appetite for weeks since she had a URI but is not nauseated. She was found to have an acute appendicitis on CT scan and is being evaluated by Dr. Hall as well as Dr. Smith from the hospitalist service secondary to her systemic medical problems. No Critical Care Time. - Diagnoses Provider Diagnoses: Acute appendicitis - Provider Notifications Discussed Care Of Patient With: Larry Hall Time Discussed With Above Provider: 15:44 Instructed by Provider To: Other - Dr. Hall, surgery, requests admission. Dr. Smith, hospitalist, will consult for medical clearance for surgery. Discharge - Discharge Plan Condition: Stable Disposition: ADMITTED TO [facility] Referrals: Cameron Dasilva MD [Primary Care Provider] - The documentation as recorded by the Shyla martell Thomas accurately reflects the service I personally performed and the decisions made by me, Arian Campbell MD.
[2017-10-18] MEDS ORDERED: metroNIDAZOLE IV 500 MG/100ML* 500 MG/100 ML BAG IVPB SCH (17:00)
[2017-10-18] MEDS ORDERED: ceFOXitin 2 GM IVPREMIX* 2 GM/50 ML BAG IVPB SCH (17:00)
[2017-10-18 17:05] LABS: Urine Appearance Cloudy; Urine Blood Negative (Negative); Urine Color Yellow; Urine Ketones Trace (Negative); Urine Protein Negative (Negative); Urine Specific Gravity 1.021 (1.010-1.030); Urine Urobilinogen Negative (Negative)
[2017-10-18 17:13] LABS: INR 1.06 (0.77-1.02)
[2017-10-18 17:27] LABS: ABS Basophils 0 10^3/ul (0-0.2); ABS Eosinophils 0 10^3/ul (0-0.6); ABS Lymphocytes 0.8 10^3/ul (1.0-4.8); ABS Monocytes 0.6 10^3/ul (0-0.8); ABS Neutrophils 20.9 10^3/ul (1.5-7.7); ABS Nucleated RBC 0 10^3/ul; Eosinophil % 0 % (0-6); Lymphocyte % 3.7 % (25-47); Nucleated Red Blood Cells % 0
[2017-10-18] MEDS ORDERED: HYDROmorphone INJ* 2 MG/ML CARPUJECT SYRINGE IV SLOW PU PRN (17:30)
[2017-10-18] MEDS ORDERED: Amiodarone TAB* 200 MG PO SCH (18:00)
[2017-10-18] MEDS ORDERED: metroNIDAZOLE IV 500 MG/100ML* 500 MG/100 ML BAG IVPB ONE (20:03)
[2017-10-18] MEDS ORDERED: ceFAZolin 2 GM PREMIX (*) 0 GM/0 ML BAG IVPB ONE (20:06)
[2017-10-18] MEDS ORDERED: D5W IVPB ONE (21:00)
[2017-10-18] MEDS ORDERED: ceFOXitin 2 GM IVPREMIX* 2 GM/50 ML BAG IVPB ONE (21:00)
[2017-10-18] MEDS ORDERED: CEFOXITIN IVPB ONE (21:00)
[2017-10-18 22:28] VITALS: BP 116/47
--- NOTE | 2017-10-19 05:05 | CONS ---
CC: Dr. Cameron Dasilva; Dr. Ke Abraham, Hospitalist Service; Dr. Larry Hall * CARDIOLOGY CONSULTATION REPORT: DATE OF CONSULT: 10/18/17 - EMERGENCY DEPT REASON FOR CONSULT: Preoperative consultation for appendicitis. CHIEF COMPLAINT: Abdominal cramping. HISTORY OF PRESENT ILLNESS: The patient is an 82-year-old woman followed by Dr. Abraham with known atherosclerotic heart disease, valvular heart disease, and paroxysmal atrial fibrillation. The patient tells me that she was diagnosed at [facility] with pneumonia recently, no records in our system and that she was started on oral antibiotics. Then, very early in the morning, the patient developed abdominal cramping that became progressively severe and like nothing she has ever had and she presented to the emergency department. In the emergency department, she was found to have an elevated white count and a CT scan of the abdomen was consistent with appendicitis. Dr. Hall asked for Cardiology consultation due to the patient's cardiac history. The patient was also seen on 10/01/17 here for chest discomfort. The patient had been working out in cardiac rehab and using an upper body ergometer, which is relatively new for her and she on hindsight thinks this was musculoskeletal, it had not recurred, and her troponins at that time were negative. The patient has been going to water aerobics and cardiac rehab since last fall with slow, but progressive improvement in her functional ability until she had the pneumonia. PAST MEDICAL HISTORY: 1. Paroxysmal atrial fibrillation (on amiodarone). 2. Coronary artery disease (history of stents followed by single vessel bypass) . 3. Myocardial infarction, 2007: anginal equivalent is fatigue.. 4. Aortic valve stenosis. 5. Mitral regurgitation. 6. Dynamic LVOT obstruction. 7. COPD (oxygen at night). 8. Hypertension. 9. Dyslipidemia. 10. Hypothyroid disease. 11. Osteoporosis with compression fractures and kyphoscoliosis. 12. Depression. PAST SURGICAL HISTORY: Includes: 1. Knee surgery, 2002. 2. Knee replacement, 2011. 3. Cataract surgery. 4. Broken wrist. 5. Elbow fracture. 6. Bypass surgery on 05/14/14 at [facility] (RESENDEZ to the LAD). MEDICATIONS: Outpatient medications include: 1. Levothyroxine 100 mcg a day. 2. Lasix 40 mg every other day. 3. Aspirin 81 mg a day. 4. Eliquis 2.5 mg b.i.d. 5. Amlodipine 2.5 mg a day. 6. Crestor 5 mg a day. 7. Potassium 20 mEq a day. 8. Magnesium oxide 800 mg a day. 9. Doxycycline 100 mg b.i.d. 10. Senokot 1 tab daily. 11. Calcium carbonate 500 mg a day. 12. Valsartan 20 mg a day. 13. Iron sulfate 325 mg a day. 14. Amiodarone 100 mg a day. ALLERGIES: Include PENICILLIN, PLAVIX, TICLOPIDINE (neutropenia), VOLTAREN, DICLOFENAC. FAMILY HISTORY: Significant in that her mother in her 50s with melancholy and Alzheimer's. Her father of prostate cancer in the . SOCIAL HISTORY: Significant that the patient is a retired, has supportive daughters in the area, one was in the room at that time. The patient smoked actively until the . Rare alcohol intake. REVIEW OF SYSTEMS: See history of present illness. The patient is chronically short of breath, which she attributes to her COPD. She started cardiac rehab in the fall of 2017 based on recommendations from her [facility]. Some mild gradual improvement in her overall functional ability. She denies any recent decline in this functional ability until she had her pneumonia last week. The patient denies orthopnea or PND. She wears oxygen at night. She had some musculoskeletal type of chest pain, 10/01/17. This has not recurred and is different than the anginal equivalent she had prior to her bypass surgery. The patient has not had a bowel movement in 2 days. Denies diarrhea. Denies recent chills or sweats. Abdominal cramping as described above. The patient states she has been wheezing a lot recently. All other 14-point review of systems was unremarkable. PHYSICAL EXAM: The patient is 5 feet 4 inches, weighs 150 pounds with a BMI of 27. Blood pressure 130/49, pulse of 74 (sinus rhythm and regular), respiratory rate is 20, temperature 99 degrees on arrival. General Appearance: Centripetally obese elderly woman, seated at 30 degrees, appears comfortable. She is psychologically pleasant and cooperative. Neurologically, awake, alert, oriented to person, place, and time. Cranial nerves II through XII intact. Grossly normal sensory and motor function in the upper and lower extremities in the gurney, but ambulation not observed. She follows commands well. Speech is articulate. Skin: Age- appropriate changes, warm and dry. No appreciable cyanosis with oxygen on. HEENT: Pupils are equal and round. Mucous membranes are moderately moist. Neck: Without increased JVP appreciated. No thyromegaly or lymphadenopathy appreciated. Breath sounds were clear posteriorly with good effort and no wheezing, rales, or rhonchi appreciated. Coronary: S1, very soft S2. 2/6 late peaking systolic murmur heard in the right upper sternal border, left sternal border, and also audible in the apex. Full abdominal exam not performed, dull epigastric discomfort. Cramping that will come back with deep breathing. Lower extremities were free of edema and warm. DIAGNOSTIC STUDIES/LAB DATA: Sodium 136, potassium 3.6, chloride 98, bicarb 29 , BUN 32, creatinine 1.4 (baseline creatinine 2016 to present ranges 1.26 to 1.74), glucose 92, lactic acid 1.2, magnesium 2.4. AST 25, ALT 46. Troponin 0.02. Myoglobin . CRP of 54.5. BNP of 280. From 2017, total cholesterol 186, triglycerides 129, LDL cholesterol 94, HDL cholesterol 67. TSH today 3.96. Urinalysis: pH 1.021, esterase trace positive, ketones trace positive. INR 1.06. White count 22.4, hemoglobin 15.7, hematocrit 47, platelets 285, increased neutrophils. Chest x-ray: Low lung volumes, basilar infiltrates consistent with atelectasis. A 12-lead ECG today shows normal sinus rhythm, 72 beats a minute, QRS axis -15, normal AV and IV conduction times, corrected QT interval 472 milliseconds and there is quite a bit of motion artifact. When this EKG is compared with an EKG of 06/14/17, there is no significant change nor with her more recent EKG of 09/17. CT abdomen and pelvis from today consistent with acute appendicitis, cholelithiasis noted without acute cholecystitis and left adnexal mass, unchanged significantly. Outpatient studies include: Pulmonary function studies from 07/08/17 showing FEV1 of 1.10, 57% of predicted , FVC of 1.68, 64% of predicted and diffusion capacity of 5.47, 27% of predicted with interpretation by Dr. Locke of severe obstructive ventilatory defect and severely decreased diffusion capacity, 30% drop in comparison with prior testing 2016. The patient's echocardiogram from 09/03/16 showed small LV chamber diameter, normal left ventricular wall motion and systolic function, ejection fraction 60 % to 65%, normal right ventricular systolic function, mild aortic stenosis ( mean gradient 8.2, calculated aortic valve area of 1 sq. cm), [id number] aortic insufficiency, ceih-[id number] mitral stenosis, kebdinzp-hi-jeglra mitral insufficiency, moderate- to-severe tricuspid insufficiency, and PA pressure was 55 mmHg. Cardiac catheterization February 2014 ([facility]): LM clean, LAD stents free of stenosis, post stent 90% after D1, D2 70% occlusion, Circumflex small caliber free of significant disease, RCA dominant, 50% occlusion proximally, 70% mid to distal occlusion. IMPRESSION AND PLAN: In summary, Opal Ramon is an 82-year-old woman with acute appendicitis in need of surgery. She has a history of coronary artery disease with bypass surgery to the left anterior descending artery, 2013, but additional atherosclerotic blockages on medical management. Ms. Ramon has valvular heart disease with mild stenosis of the aortic and mitral valves but [id number] mitral and tricuspid insufficiency and moderate-severe elevation in PA pressures on prior echos. The patient has a paroxysmal atrial fibrillation, controlled with amiodarone and on Eliquis for stroke prevention. The patient has a history of severe COPD and more recently she started to decline in her diffusion capacity, which could be amiodarone effect. From a cardiac standpoint in terms of her surgical candidacy, I think the risk of not doing the surgery is much greater than going ahead with the surgery. The fact that Ms. Ramon is going to cardiac rehab and water aerobics regularly with improving functional ability is in her favor. The patient's preserved left ventricular systolic function is in her favor. With the patient's valvular insufficiency and tendency towards diastolic and valvular congestive heart failure, she is going to need careful fluid management , I would avoid rapid infusions if able and be careful about in's and out's. Overdiuresis could lead to recurrence of LVOT obstruction and hypotension. It is not unreasonable to obtain an updated echo preoperatively, but this would be predominantly to determine her PA pressure and fluid status as opposed to updating her valvular status as her echo is relatively recent. For the patient's paroxysmal atrial fibrillation, she has been in sinus rhythm based on documentation for quite a while. Therefore she is not at significant risk for stroke holding her Eliquis as needed for surgery on the basis of atrial fibrillation. I would keep her on the amiodarone for now to minimize the risk of perioperative atrial fibrillation. I would keep her potassium 4 to 4.5 if able and therefore oral or IV potassium currently at 40 mEq could be beneficial, but it is not essential. I would resume the Eliquis as soon as she is felt to be hemodynamically stable post operatively. For the patient's coronary artery disease, medical management is going to depend somewhat on her ability to take oral medications. Perioperative antianginals would include continuation of her amlodipine, but based on blood pressure and ability to take oral medications, it would be fine to hold her oral Lasix, hold her oral valsartan, and we can follow her fluid status with weights and give her p.r.n. IV Lasix. If she is unable to take oral medications , we could give IV amiodarone 150 mg once daily until she is able to take oral again. I think the patient's chronic obstructive pulmonary disease and airway issues are considerable, but we will leave the decisions regarding this in the hands of the hospitalist and anesthesiologist. She appears to be stable and at baseline now without wheezing and she shows good oxygenation. Cardiology can follow her actively with you pre and postoperatively. Overall, Ms. Ramon is a high-risk candidate for surgery based on her airway and valvular heart disease with congestive heart failure risk as well as CAD and paroxysmal atrial fibrillation with a high CHADsVasc score for low-risk procedure. Overall, Ms. Ramon has been stable, exercising regularly very recently and optimization could include some potassium repletion, careful fluid assessment, and we can assist with adjusting medications perioperatively and assist in converting from oral to IV medications as needed. Thank you for allowing us to participate in this complex woman's care. [id number]/[facility] #: [id number] RENÉ
--- NOTE | 2017-10-19 05:14 | CONS ---
CC: Dr. Ke Abraham; Dr. Francine Locke * CONSULTATION REPORT: DATE OF CONSULT: 10/18/17 - EMERGENCY DEPT CHIEF COMPLAINT: Abdominal pain. HISTORY OF PRESENT ILLNESS: Patient is an 82-year-old female with known COPD and cardiac disease, who was here at the hospital 3 weeks ago for a chest pain admission; it was thought maybe to have a small pneumonia. Has been on antibiotics for the last week or so. She ruled out for any major cardiac event at that time. The current event is that she started to have abdominal pain yesterday. It became much more severe overnight and she presented to the emergency room today. The pain is principally in the right lower quadrant, although somewhat across the lower abdomen. There is no nausea, no vomiting, not much appetite. No diarrhea, constipation, blood in the stool or urine. No accident, injury, or trauma. No other family members are similarly ill. PAST MEDICAL HISTORY: Her past medical history is significant for cardiac and pulmonary disease. I await Dr. Marie's evaluation of her cardiac status. She has a history of a laparoscopy many many years ago. It sounds like it might have been a tubal ligation, but it is not clear what that was all about. PHYSICAL EXAM: On physical exam, she is a well-developed, well-nourished female consistent with stated age, does not appear acutely ill. She has had pain medicine and states he feels a lot better since she had that. Abdomen is soft, slightly distended, decreased bowel sounds. She is exquisitely tender in the right lower quadrant with focal rebound tenderness. There is not really any guarding. There is no definite percussion tenderness. No palpable masses. There is a well-healed scar at the umbilicus. No obvious hernias. DIAGNOSTIC STUDIES/LAB DATA: Laboratory studies reveal white blood count elevated at 22,000 with a left shift. INR is normal. Her urinalysis is normal. Her electrolytes are normal. Her creatinine is mildly elevated at 1.4 , which corresponds to a GFR of 36. Her C-reactive protein is elevated at 54. Her BNP is elevated at 280. She has had a CT scan which is consistent with appendicitis and fecalith in the appendix. There is no evidence of abscess or perforation. IMPRESSION: An 82-year-old female with sign and symptoms consistent with acute appendicitis with leukocytosis and focal abdominal findings; however, no evidence of perforation at this stage. She also has a significant cardiac history and has been on blood thinner. Her last dose of Eliquis was last night between 8 and 10 p.m. I discussed this with the hospitalist. They will admit her to their service. They will have Cardiology see her in consultation. We will keep her on intravenous antibiotics. By tomorrow morning, she will be 36 hours since her last dose of Eliquis, which would be reasonable for surgery with a GFR of 36; however, I will await the cardiac evaluation to decide whether or not her cardiac risk is prohibitive or not. If hospitalist or Cardiology feels that there is any advantage to be gained by transfer to a tertiary center for additional cardiac workup or evaluation, I will leave that to their discretion. Otherwise, we would plan on doing a laparoscopic appendectomy here tomorrow. [id number] #: [id number] MTDD
--- NOTE | 2017-10-19 05:56 | CONS ---
CONSULTATION REPORT: DATE OF CONSULT: 10/18/17 - EMERGENCY DEPT CONSULTING PHYSICIAN: Dr. Tapan Campbell, emergency room. PRIMARY CARE PROVIDER: Dr. Cameron Dasilva. CHIEF COMPLAINT: Acute onset of right lower quadrant abdominal pain. HISTORY OF PRESENT ILLNESS: Opal Raomn is an 82-year-old female with a past medical history of CAD, status post CABG, 2013 ([facility]); [id number] COPD with severe diffusion restriction; hypertension; residual coronary artery disease with 70% mid LAD and 50% proximal LAD on last catheterization, who presents in the setting of diagnosis of pneumonia 1 week prior for which she has been prescribed doxycycline and just finished a course of prednisone. She woke up last night about 2 to 3 a.m. with severe abdominal pain limiting her ability to even walk, rated 10/10, severely reduced appetite, no nausea or vomiting. She is chronically short of breath, denies any headache, muscular ache, and had negative flu swabs a week ago. Of note, she was previously seen 2-1/2 weeks ago for some chest pain in the setting of undergoing cardiac rehab at [facility] and was admitted for cardiac ACS rule out, had negative troponins x3. She was unable to tolerate a negative stress test given claustrophobia and then there was concern given her dynamic left ventricular outflow tract obstruction history that she would not be able to tolerate dobutamine stress echo test and also concern given her moderate pulmonary hypertension so that was deferred to later. She had followed with Dr. Abraham since then and that reportedly is scheduled in the next few weeks. The patient upon presentation to [place] [facility] was found to have a white count of 22.4, slight temperature of 99.0. She had a CT of her abdomen, which showed acute appendicitis from cholelithiasis and a left adnexal mass, 4.2 x 3.5 x 4.7 cm. Previously on 02/22/14 study, was 4.0 x 3.0 x 4.9 cm. She had a portable chest x-ray, which showed low lung volumes and bibasilar infiltrates suggestive of atelectasis, less likely pneumonia. She was evaluated by general surgeon, Dr. Larry Hall, and given her complex cardiac history and other multiorgan disease including lungs and kidneys was evaluated for potential surgery stratification. Dr. Marie has evaluated the patient and has been in close consultation with the anesthesiologists involved in the case including Dr. London Brice, who would have done the procedure tonight, and Dr. Yonis Steel , who would be doing the procedure tomorrow. It was discovered that she was on Eliquis and had taken the dose at 2:17 at night and given the degree of renal insufficiency, she was not thought to be a good surgical candidate emergently. Upon further discussions with all consultants, the anesthesiologists do not feel like she would be best served with surgery at this institution given the complex multiorgan dysfunction and lack of tertiary facility resources such as intraoperative ARACELI monitoring of her pulmonary pressures and other pulmonary hypertension or increased interventional cardiology resources. This was most significantly an issue as it was brought up by the family as whether she would be best served at a tertiary center and therefore plans have been set in motion to transfer her to another facility like the [facility]. PAST MEDICAL HISTORY: Paroxysmal AFib, on Eliquis; CAD, status post CABG; COPD ; pgzjhfoq-wj-ufsbji hypertension, dynamic left ventricular outflow tract obstruction, moderate pulmonary hypertension, cnkzzmvl-et-qxmica tricuspid valve regurgitation, severe mitral valve regurgitation. MEDICATIONS: Include: 1. Levothyroxine 100 mcg p.o. q.a.m. 2. Lasix 40 mg p.o. every other day. 3. Aspirin 81 mg daily. 4. Eliquis 2.5 mg p.o. b.i.d. 5. Amlodipine 2.5 p.o. daily. 6. Crestor 5 mg p.o. q.p.m. 7. Potassium chloride 20 mEq p.o. q.a.m. 8. Magnesium oxide 800 mg p.o. daily. 9. Doxycycline 100 mg p.o. b.i.d. started approximately 1 week ago. 10. Senna tab, 1 tab p.o. daily. 11. Calcium carbonate 500 mg p.o. daily. 12. Valsartan 20 mg p.o. daily. 13. Ferrous gluconate 325 mg p.o. b.i.d. 14. Amiodarone taking 100 mg q.a.m. and q.p.m. ALLERGIES: Include PENICILLIN (hives), PLAVIX, TICLID (very severe), and VOLTAREN (very severe swelling of face, lips, and throat). FAMILY HISTORY: Mother of Alzheimer's disease. Father of complication of a hip fracture. SOCIAL HISTORY: Former smoker, stopped 30 years prior. Drinks 4 glasses of wine a week. She lives in [place], lives alone in her own house, but also has been staying with her daughter, local [place] resident for the last week. She desires to be a full code. REVIEW OF SYSTEMS: A complete 14-point review of systems negative except as per HPI. PHYSICAL EXAM: General Appearance: In no acute distress. Currently sitting up in the hospital bed, able to ambulate to bathroom. Vital Signs: Heart rate 74, temperature 99, respiratory rate initially 27 improved to 20, blood pressure 125/42, satting 91% to 97% on room air. HEENT: Normocephalic and atraumatic. Pupils are equal, round, and reactive to light. Extraocular motions intact. Neck: Supple. No cervical lymphadenopathy. Pulmonary: Clear to auscultation bilaterally with no wheezing, rales, or rhonchi. Cardiovascular : Regular rate and rhythm. Systolic ejection murmur at the apex. Abdomen: Soft, nondistended, quite tender in the right upper and right lower quadrants. Extremities: Warm and well- perfused, no peripheral edema. Skin: No rashes and no lesions. Neuro: Cranial nerves II through XII intact. Moving all extremities. DIAGNOSTIC STUDIES/LAB DATA: White count 22.4, hemoglobin 15.7, hematocrit 47, platelets 285. INR 1.06. Sodium 136, potassium 3.6, chloride 98, carbon dioxide 29, BUN 32, creatinine 1.40, glucose 92, lactic acid 1.2. AST 25, ALT 46, alk phos 45. CRP 54.5. BNP 280. Lipase 14. Urinalysis: Trace ketones, trace leukocyte esterase. Imaging: As described in the HPI, chest x-ray with low lung volumes and bibasilar infiltrates suggestive of atelectasis, less likely pneumonia. CT of the abdomen and pelvis with evidence of acute appendicitis, cholelithiasis without evidence of acute cholecystitis, left adnexal mass unchanged significantly. EKG with left axis deviation, T-wave inversion in aVL, flat R waves in V5 through V6, biphasic in V3. ASSESSMENT AND PLAN: Opal Ramon is an 82-year-old female with complex multiorgan dysfunction, most significant for coronary artery disease, status post coronary artery bypass graft, residual coronary artery disease; moderate-to -severe chronic obstructive pulmonary disease with severe diffusion restriction , 27% corrected up to 38%, FEV1 of 57%; chronic kidney disease with GFR of 36 and creatinine of 1.40 near her baseline, presenting with acute appendicitis. Her pain has been better controlled after Dilaudid 1 mg in IV, start 2 mg IV q.3 hours p.r.n. She was started, given her PENICILLIN allergy, on Flagyl 500 mg IV q.8 hours and cefoxitin 2 g IV q.8 hours. As described in the HPI, there has been much discussion with various consultants, most significantly the anesthesiologists who would be doing the case, floor person, and general surgeon. Decision has been made to transfer the patient to a tertiary care facility. Cardiac recommendations include to continue her amiodarone 100 mg p.o. b.i.d. or change to 150 IV. Hold Eliquis given surgical needs. Keep her potassium between 4 and 4.5. She is relatively euvolemic on exam, can give IV diuretics as needed during surgery. Per surgeon, she is n.p.o. except for ice chips. There is approximately 50% to 70% chance per conversation with Dr. Hall of nonsurgical management being acceptable at the setting of her observed fecalith (which is usually excluded from study samples which predict higher resolution with just IV antibiotics). The patient is a full code. [id number] #: [id number] MTDD
[2017-10-19] MEDS ORDERED: Levothyroxine TAB* 100 MCG TAB PO SCH (06:00)
[2017-10-19] MEDS ORDERED: Magnesium Oxide TAB* 400 MG PO SCH (09:00)
[2017-10-19] MEDS ORDERED: Senna TAB PO SCH (09:00)
[2017-10-19] MEDS ORDERED: Potassium Chlor TAB* 10 MEQ TAB.ER PO SCH (09:00)
[2017-10-19] MEDS ORDERED: Amiodarone TAB* 200 MG PO SCH (09:00)
[2017-10-19] MEDS ORDERED: Aspirin EC Low Dose* 81 MG TAB.EC PO SCH (19:00)
--- NOTE | 2017-10-20 08:49 | PN ---
Progress Note - Progress Note Date of Service: 10/20/17 Note: Patient urine culture grew 10-25,000. patient was transferred. There is not a significant culture amount so no further action at this time.
--- NOTE | 2017-10-21 08:44 | ED ---
Progress - Progress Note Progress Note: Urine cx reveals e. coli Pt transferred to [facility]. Will fax sens results. jl Carrion, aware. Course/Dx - Course Course Of Treatment: Ms. Ramon presented with quite a bit of RLQ pain that started during the night. She hasn't had an appetite for weeks since she had a URI but is not nauseated. She was found to have an acute appendicitis on CT scan and is being evaluated by Dr. Hall as well as Dr. Smith from the hospitalist service secondary to her systemic medical problems. No Critical Care Time. - Diagnoses Provider Diagnoses: Acute appendicitis - Provider Notifications Time Discussed With Above Provider: 15:44 Instructed by Provider To: Other - Dr. Hall, surgery, requests admission. Dr. Smith, hospitalist, will consult for medical clearance for surgery.
== END 2017-10-18 21:30 | disposition short-term general hospital (02) ==
LOC: ED 13:45
DX: K35.80 Unspecified acute appendicitis (principal); R05 Cough; E07.9 Disorder of thyroid, unspecified; Z79.01 Long term (current) use of anticoagulants; I25.10 Atherosclerotic heart disease of native coronary artery without angina pectoris; I11.0 Hypertensive heart disease with heart failure; I50.9 Heart failure, unspecified; Z95.5 Presence of coronary angioplasty implant and graft; I25.2 Old myocardial infarction; E78.00 Pure hypercholesterolemia, unspecified; J44.9 Chronic obstructive pulmonary disease, unspecified; Z88.0 Allergy status to penicillin; Z88.8 Allergy status to other drugs, medicaments and biological substances; Z87.891 Personal history of nicotine dependence
CPT/HCPCS: 36415; 71045; 74176; 80053; 81003; 81015; 83605; 83690; 83880; 85025; 85610; 85730; 86140; 87077; 87086; 87186; 93005; 96361; 96365; 96375; 99285; J0690; J0694; J1170; J2405; J3490

== ENCOUNTER 2018-04-29 19:43 | Emergency (ER) | payer MEDICARE ==
--- NOTE | 2018-04-29 22:37 | ED ---
Back Pain - HPI Summary HPI Summary: This patient is an 83 year old F presenting to [facility] accompanied by family with a chief complaint of bilateral mid-low back radiating to bilateral flanks that began yesterday. The patient rates the pain 8/10 in severity. Symptoms aggravated by movement. Symptoms alleviated by nothing. Patient reports bilateral feet edema. Patient denies nausea, vomiting, and CP. Patient reports she has similar pain with a compression fracture. - History of Current Complaint Chief Complaint: EDGeneral Stated Complaint: MIDDLE BACK PAIN/SWELLING ANKLES/CHF Time Seen by Provider: 04/29/18 22:06 Hx Obtained From: Patient Onset/Duration: Sudden Onset, Lasting Days, Still Present Onset/Duration: Started Days Ago, Atraumatic, Still Present Timing: Constant Back Pain Location: Is Discrete @ - Mid-low back Severity Initially: Severe Severity Currently: Severe Pain Intensity: 8 Pain Scale Used: 0-10 Numeric Aggravating Symptom(s): Movement Alleviating Symptom(s): Nothing Associated Signs And Symptoms: Positive: Other - Positive bilateral feet edema. Negative nausea, vomiting, and CP - Allergies/Home Medications Allergies/Adverse Reactions: Allergies Allergy/AdvReac Type Severity Reaction Status Date / Time clopidogrel [From Plavix] Allergy Unknown Verified 04/29/18 22:21 Reaction Details diclofenac [From Voltaren] Allergy Swelling Verified 04/29/18 22:21 Of Face,Lips,& Throat Penicillins Allergy Hives Verified 04/29/18 22:21 ticlopidine [From Ticlid] Allergy Unknown Verified 04/29/18 22:21 Reaction Details PMH/Surg Hx/FS Hx/Imm Hx Previously Healthy: No Endocrine/Hematology History: Reports: Hx Anticoagulant Therapy - xarelto, Hx Thyroid Disease Denies: Hx Blood Disorders, Hx Blood Transfusions, Hx Bone Marrow Disease, Hx Diabetes, Hx Systemic Lupus Erythematosus, Hx Sickle Cell Disease, Hx Anemia , Hx Unexplained Bleeding, Other Endocrine/Hematological Disorders Cardiovascular History: Reports: Hx Angioplasty, Hx Congestive Heart Failure, Hx Coronary Artery Disease, Hx Hypercholesterolemia, Hx Hypertension, Hx Myocardial Infarction, Hx Valvular Heart Disease, Other Cardiovascular Problems/ Disorders Denies: Hx Aneurysm, Hx Angina, Hx Auto Implanted Cardiovert Defib, Hx Cardiac Arrest, Hx Cardiomegaly, Hx Congenital Heart Disease, Hx Deep Vein Thrombosis, Hx Embolism, Hx Hypotension, Hx Pacemaker/ICD, Hx Peripheral Vascular Disease, Hx Rheumatic Fever, Hx Syncope Respiratory History: Reports: Hx Chronic Obstructive Pulmonary Disease (COPD), Hx Pneumonia, Other Respiratory Problems/Disorders Denies: Hx Asthma, Hx Chronic Bronchitis, Hx Cystic Fibrosis, Hx Lung Cancer , Hx Pleural Effusion, Hx Pulmonary Edema, Hx Pulmonary Embolism, Hx Seasonal Allergies, Hx Sleep Apnea Musculoskeletal History: Reports: Hx Back Problems, Other Musculoskeletal History - compression fracture to thoracic spine Denies: Hx Arthritis, Hx Bursitis, Hx Congenital Bone Abnormalities, Hx Fibromyalgia, Hx Gout, Hx Orthopedic Injury, Hx Osteoporosis, Hx Scoliosis, Hx Tendonitis Sensory History: Reports: Hx Contacts or Glasses, Hx Vision Problem Denies: Hx Cataracts, Hx Eye Injury, Hx Eye Prosthesis, Hx Glaucoma, Hx Legally Blind, Hx Macular Degeneration, Hx Deafness, Hx Hearing Aid, Hx Hearing Problem, Other Sensory Impairments Opthamlomology History: Reports: Hx Contacts or Glasses, Hx Vision Problem Denies: Hx Cataracts, Hx Eye Injury, Hx Eye Prosthesis, Hx Glaucoma, Hx Legally Blind, Hx Macular Degeneration, Other Sensory Impairments Neurological History: Denies: Hx Headaches, Hx Seizures, Hx Transient Ischemic Attacks (TIA) Psychiatric History: Reports: Hx Anxiety, Hx Depression - Cancer History Hx Chemotherapy: No Hx Radiation Therapy: No Hx Palliative Cancer Treatment: No - Surgical History Surgery Procedure, Year, and Place: 2011 LEFT TOTAL KNEE [id number] CARDIAC STENT [id number] 4 CARDIAC STENTS [id number], CABG x1 [place], ROBOTIC CHEST SURGERY 2014 Hx Anesthesia Reactions: No - Immunization History Date of Tetanus Vaccine: unknown Date of Influenza Vaccine: 06/16 Infectious Disease History: No Infectious Disease History: Reports: Hx Hepatitis - Hepatitis 50 years ago Denies: Hx Clostridium Difficile, Hx Human Immunodeficiency Virus (HIV), Hx of Known/Suspected MRSA, Hx Shingles, Hx Tuberculosis, Hx Known/Suspected VRE, Hx Known/Suspected VRSA, History Other Infectious Disease, Traveled Outside the [place] in Last 30 Days - Family History Known Family History: Negative: Cardiac Disease, Hypertension, Diabetes - Social History Occupation: Retired Lives: With Family Alcohol Use: Weekly Alcohol Amount: 4x week Hx Substance Use: No Substance Use Type: Reports: None Hx Tobacco Use: Yes Smoking Status (MU): Former Smoker Type: Cigarettes Amount Used/How Often: 1PPD 30 YRS Length of Time of Smoking/Using Tobacco: 40 Have You Smoked in the Last Year: No Review of Systems Negative: Chest Pain Negative: Vomiting, Nausea Positive: Edema, Other - Positive back pain All Other Systems Reviewed And Are Negative: Yes Physical Exam - Summary Physical Exam Summary: Appearance: Well-appearing, Well-nourished, lying in bed comfortably Skin: Warm, dry, no obvious rash Eyes: sclera anicteric, no conjunctival pallor ENT: mucous membranes moist, pharynx appears normal Neck: Supple, nontender Respiratory: Clear to auscultation, no signs of respiratory distress Cardiovascular: Normal S1, S2. No murmurs. Normal distal pulses in tibial and radial bilaterally. Abdomen: Soft, nontender, normal active bowel sounds present Musculoskeletal: Strength/ROM Intact. Mild edema in lower legs and ankles. Some pain in mid-lumbar area upon sitting up. No tenderness to percussion. No CVA tenderness Neurological: A&Ox3, awake and alert, mentation is normal, speech is fluent and appropriate Psychiatric: affect is normal, does not appear anxious or depressed Triage Information Reviewed: Yes Vital Signs On Initial Exam: Initial Vitals Temp Pulse Resp BP Pulse Ox 98.3 F 68 16 157/76 93 04/29/18 20:05 04/29/18 20:05 04/29/18 20:05 04/29/18 20:05 04/29/18 20:05 Vital Signs Reviewed: Yes Diagnostics - Vital Signs Vital Signs Temp Pulse Resp BP Pulse Ox 04/29/18 22:18 69 183/92 94 04/29/18 21:55 98.4 F 68 18 176/80 92 04/29/18 20:05 98.3 F 68 16 157/76 93 - Laboratory Result Diagrams: 04/29/18 22:47 04/29/18 22:47 Lab Statement: Any lab studies that have been ordered have been reviewed, and results considered in the medical decision making process. - CT CT Abdomen and Pelvis CT Interpretation Completed By: Radiologist - CT abdomen and pelvis reveals, per radiologist, enhancement of the gallbladder wall. No ductal dilation. Abnormal complex cystic structure likely hemorrhagic in the left adnexa likely ovarian measuring approximately 38 x 33 x 47 mm. Further evaluation with ultrasound is recommended. Mild loss of height of superior endplate of T12, without retropulsion, new from prior study. No significant prevertebral soft tissue swelling. ED physician has reviewed this radiology report. Back Pain Course/Dx - Course Course Of Treatment: This is an 83-year-old woman with acute upper lumbar pain. My initial concern was retroperitoneal pathology such as retroperitoneal hemorrhage on eliquis. Fortunately her CT scan only shows evidence of T12 compression fracture. She has had a fairly reasonable dose of fentanyl here with minimal effect on her pain and no sign of sedation, so I have prescribed oxycodone in escalating doses and explained that there is no real dose ceiling on opioid pain medication. - Diagnoses Provider Diagnoses: Vertebral compression fracture Discharge - Sign-Out/Discharge Documenting (check all that apply): Patient Departure - Discharge Plan Condition: Good Disposition: HOME Prescriptions: oxyCODONE TAB* [Roxycodone TAB 5 mg*] 5 mg PO Q4H PRN #25 tab MDD 8 tabs PRN Reason: Pain Patient Education Materials: Vertebral Compression Fracture (ED) Referrals: Cameron Dasilva MD [Primary Care Provider] - - Billing Disposition and Condition Condition: GOOD Disposition: Home - Attestation Statements Document Initiated by Scribe: Yes Documenting Scribe: Francisca Weller Provider For Whom Paula is Documenting (Include Credential): Arian Ocasio MD Scribe Attestation: IFrancisca, scribed for Arian Ocasio MD on 04/30/18 at 0256. Scribe Documentation Reviewed: Yes Provider Attestation: The documentation as recorded by the Francisca martell accurately reflects the service I personally performed and the decisions made by me, Arian Ocasio MD
[2018-04-29] MEDS ORDERED: fentaNYL* 50 MCG/ML 2 ML VIAL (100 MCG VIAL) IV SLOW PU ONE (22:40)
[2018-04-29 23:00] LABS: ABS Basophils 0 10^3/ul (0-0.2); ABS Eosinophils 0.2 10^3/ul (0-0.6); ABS Lymphocytes 1.2 10^3/ul (1.0-4.8); ABS Monocytes 0.5 10^3/ul (0-0.8); ABS Neutrophils 6.4 10^3/ul (1.5-7.7); ABS Nucleated RBC 0 10^3/ul; Eosinophil % 2.2 % (0-6); Hematocrit 44 % (35-47); Hemoglobin 14.8 g/dl (12.0-16.0); Lymphocyte % 14.3 % (25-47); Mean Corpuscular HGB Conc 33 g/dl (31-36); Mean Corpuscular Hemoglobin 31 pg (27-31); Mean Corpuscular Volume 92 fL (80-97); Mean Platelet Volume 9.7 um3 (7.4-10.4); Nucleated Red Blood Cells % 0.1; Platelet Count 202 10^3/ul (150-450); Red Blood Count 4.81 10^6/ul (4.00-5.40); Red Cell Distribution Width 15 % (10.5-15); White Blood Count 8.4 10^3/ul (3.5-10.8)
[2018-04-29 23:38] LABS: EGFR Non-African American 37.8 (>60)
[2018-04-29 23:48] LABS: Urine Appearance Cloudy; Urine Blood 1+ (Negative); Urine Color Yellow; Urine Ketones Negative (Negative); Urine Protein Negative (Negative); Urine Red Blood Cell 1+(3-5/hpf) (Absent); Urine Specific Gravity 1.011 (1.010-1.030); Urine Urobilinogen Negative (Negative); Urine White Blood Cell Trace(0-5/hpf) (Absent)
[2018-04-29] MEDS ORDERED: Iodixanol* (CONTRAST) 320 MG/ML 100 ML SDV IV ONE (23:59)
[2018-04-30] MEDS ORDERED: fentaNYL* 50 MCG/ML 2 ML VIAL (100 MCG VIAL) IV SLOW PU PRN (01:19)
[2018-04-30] MEDS ORDERED: fentaNYL* 50 MCG/ML 2 ML VIAL (100 MCG VIAL) ONE (01:23)
--- NOTE | 2018-04-30 02:17 | RAD ---
EXAM: CT Abdomen and Pelvis With Intravenous Contrast CLINICAL HISTORY: 83 years old, female; Signs and symptoms; Other: Back pain; Additional info: Pain mid-lumbar area rad to flanks, on eliquis TECHNIQUE: Axial computed tomography images of the abdomen and pelvis with intravenous contrast. All CT scans at this facility use at least one of these dose optimization techniques: automated exposure control; mA and/or kV adjustment per patient size (includes targeted exams where dose is matched to clinical indication); or iterative reconstruction. Coronal and sagittal reformatted images were created and reviewed. CONTRAST: 80 mL of VISI administered intravenously. COMPARISON: A/P WO CT ABD/PEL W/O 10/18/2017 3:10 PM FINDINGS: Lung bases: Linear areas of atelectasis and scarring in bilateral visualized lungs. Heart: Cardiomegaly. Calcification of the aortic valve and mitral valve. ABDOMEN: Liver: Unremarkable. No mass. Gallbladder and bile ducts: Distended gallbladder with gallstones. No pericholecystic edema. No mucosal enhancement of the gallbladder wall. No ductal dilation. Pancreas: Mild atrophy of the pancreas. No ductal dilation. Spleen: Unremarkable. No splenomegaly. Adrenals: Unremarkable. No mass. Kidneys and ureters: Cyst in the upper pole of the right kidney measuring 17.1 x 17.4 cm. Cortical thinning in the lower pole of the right kidney. Mild cortical thinning of the left kidney. No hydronephrosis. Stomach and bowel: Postsurgical changes in the right colon. Mild fecal loading. No obstruction. No mucosal thickening. PELVIS: Appendix: Appendix is likely surgically absent. Bladder: Unremarkable. No mass. Reproductive: Abnormal complex cystic structure in the left adnexa likely ovarian measuring approximately 38 x 33 x 47 mm. Further evaluation with ultrasound is recommended. ABDOMEN and PELVIS: Intraperitoneal space: Unremarkable. No free air. No significant fluid collection. Bones/joints: Diffuse demineralization of the bones with multilevel degenerative changes. No acute fracture. No dislocation. Soft tissues: Mild loss of height of superior endplate of T12, without retropulsion, new from prior study. No significant prevertebral soft tissue swelling. Vasculature: Atherosclerosis. No abdominal aortic aneurysm. Lymph nodes: Unremarkable. No enlarged lymph nodes. IMPRESSION: Distended gallbladder with gallstones. No pericholecystic edema. No mucosal enhancement of the gallbladder wall. No ductal dilation. Abnormal complex cystic structure likely hemorrhagic in the left adnexa likely ovarian measuring approximately 38 x 33 x 47 mm. Further evaluation with ultrasound is recommended. Mild loss of height of superior endplate of T12, without retropulsion, new from prior study. No significant prevertebral soft tissue swelling.
[2018-04-30] MEDS ORDERED: fentaNYL PATCH 50 MCG/HR TRANSDERM ONE (03:10)
[2018-04-30 03:17] VITALS: BP 171/97
== END 2018-04-30 04:35 | disposition home or self-care (01) ==
LOC: ED 19:43
DX: M48.54XA Collapsed vertebra, not elsewhere classified, thoracic region, initial encounter for fracture (principal); K82.8 Other specified diseases of gallbladder; K80.80 Other cholelithiasis without obstruction; N28.1 Cyst of kidney, acquired; I51.7 Cardiomegaly; Z87.891 Personal history of nicotine dependence; Z88.8 Allergy status to other drugs, medicaments and biological substances; Z88.0 Allergy status to penicillin
CPT/HCPCS: 36415; 74177; 80053; 81003; 81015; 83690; 85025; 87086; 96374; 99284; A9270-GY; J3010

== ENCOUNTER 2018-06-30 03:44 | Observation (INO) | payer MEDICARE ==
[2018-06-30] MEDS ORDERED: methylPREDNISolone 125 MG* 2 ML VIAL IV ONE (04:04)
[2018-06-30] MEDS ORDERED: diPHENhydraMINE PO* 25 MG PO ONE (04:06)
[2018-06-30] MEDS ORDERED: diPHENhydraMINE PO* 50 MG ONE (04:13)
[2018-06-30] MEDS ORDERED: methylPREDNISolone 125 MG* 2 ML VIAL ONE (04:14)
--- NOTE | 2018-06-30 04:29 | ED ---
Allergic Reaction/Systemic - HPI Summary HPI Summary: An 83 y/o female presents to the ED c/o tongue swelling that she claims is an allergic reaction to Gabapentin since 03:00 06/30/2018. She claims to have dyspnea but denies CP. She also claims to have rib pain- she had a fracture two months ago. She also claims that she has an arrhythmia, but takes amiodarone to keep it under control. - History of Current Complaint Chief Complaint: EDAllergicReaction Time Seen by Provider: 06/30/18 03:55 Hx Obtained From: Patient Onset/Duration: Gradual Onset Timing: Lasting Hours Severity Initially: Moderate Severity Currently: Moderate Pain Intensity: 4 Pain Scale Used: 0-10 Numeric Character: Swelling - Allergies/Home Medications Allergies/Adverse Reactions: Allergies Allergy/AdvReac Type Severity Reaction Status Date / Time clopidogrel [From Plavix] Allergy Unknown Verified 06/30/18 03:51 Reaction Details diclofenac [From Voltaren] Allergy Swelling Verified 06/30/18 03:51 Of Face,Lips,& Throat Penicillins Allergy Hives Verified 06/30/18 03:51 ticlopidine [From Ticlid] Allergy Unknown Verified 06/30/18 03:51 Reaction Details Home Medications: Home Medications Gabapentin CAP(*) [Neurontin 100 mg CAP(*)] 100 mg PO BID 06/30/18 [History Confirmed 06/30/18] Ibandronate Sodium 150 mg PO MONTHLY 06/30/18 [History Confirmed 06/30/18] PMH/Surg Hx/FS Hx/Imm Hx Endocrine/Hematology History: Reports: Hx Anticoagulant Therapy - Eliquis as of 2017, Hx Blood Disorders - Hx acute Leukocytosis, Hx Thyroid Disease - hypothyroidism Denies: Hx Blood Transfusions, Hx Bone Marrow Disease, Hx Diabetes, Hx Systemic Lupus Erythematosus, Hx Sickle Cell Disease, Hx Anemia, Hx Unexplained Bleeding, Other Endocrine/Hematological Disorders Cardiovascular History: Reports: Hx Angioplasty, Hx Cardiomegaly, Hx Congestive Heart Failure, Hx Coronary Artery Disease, Hx Hypercholesterolemia, Hx Hypertension, Hx Myocardial Infarction, Hx Valvular Heart Disease, Other Cardiovascular Problems/Disorders - Hx CHF, PAF, Bilat LE Edema, Denies: Hx Aneurysm, Hx Angina, Hx Auto Implanted Cardiovert Defib, Hx Cardiac Arrest, Hx Congenital Heart Disease, Hx Deep Vein Thrombosis, Hx Embolism, Hx Hypotension, Hx Pacemaker/ICD, Hx Peripheral Vascular Disease, Hx Rheumatic Fever, Hx Syncope Respiratory History: Reports: Hx Chronic Obstructive Pulmonary Disease (COPD) - O2 HS 2L, Hx Pneumonia, Other Respiratory Problems/Disorders - Hx Dyspnea, Denies: Hx Asthma, Hx Chronic Bronchitis, Hx Cystic Fibrosis, Hx Lung Cancer , Hx Pleural Effusion, Hx Pulmonary Edema, Hx Pulmonary Embolism, Hx Seasonal Allergies, Hx Sleep Apnea GI History: Reports: Hx Gall Bladder Disease History: Reports: Other Problems/Disorders - incontinence, Hx Acute kidney injury, Musculoskeletal History: Reports: Hx Back Problems, Hx Osteoporosis - Boniva, stopped several months ago, Other Musculoskeletal History - compression fracture to thoracic spine Denies: Hx Arthritis, Hx Bursitis, Hx Congenital Bone Abnormalities, Hx Fibromyalgia, Hx Gout, Hx Orthopedic Injury, Hx Scoliosis, Hx Tendonitis Sensory History: Reports: Hx Contacts or Glasses, Hx Vision Problem Denies: Hx Cataracts, Hx Eye Injury, Hx Eye Prosthesis, Hx Glaucoma, Hx Legally Blind, Hx Macular Degeneration, Hx Deafness, Hx Hearing Aid, Hx Hearing Problem, Other Sensory Impairments Opthamlomology History: Reports: Hx Contacts or Glasses, Hx Vision Problem Denies: Hx Cataracts, Hx Eye Injury, Hx Eye Prosthesis, Hx Glaucoma, Hx Legally Blind, Hx Macular Degeneration, Other Sensory Impairments Neurological History: Denies: Hx Headaches, Hx Seizures, Hx Transient Ischemic Attacks (TIA) Psychiatric History: Reports: Hx Anxiety, Hx Depression - Cancer History Hx Chemotherapy: No Hx Radiation Therapy: No Hx Palliative Cancer Treatment: No - Surgical History Surgery Procedure, Year, and Place: 2011 LEFT TOTAL KNEE [id number] CARDIAC STENT [id number] 4 CARDIAC STENTS [id number], CABG x1 [place], ROBOTIC CHEST SURGERY 2013 Hx Anesthesia Reactions: No - Immunization History Date of Tetanus Vaccine: unknown Date of Influenza Vaccine: 06/16 Infectious Disease History: No Infectious Disease History: Reports: Hx Hepatitis - Hepatitis 50 years ago Denies: Hx Clostridium Difficile, Hx Human Immunodeficiency Virus (HIV), Hx of Known/Suspected MRSA, Hx Shingles, Hx Tuberculosis, Hx Known/Suspected VRE, Hx Known/Suspected VRSA, History Other Infectious Disease, Traveled Outside the [place] in Last 30 Days - Family History Known Family History: Negative: Cardiac Disease, Hypertension, Diabetes - Social History Alcohol Use: None Alcohol Amount: 4x week Hx Substance Use: No Substance Use Type: Reports: None Hx Tobacco Use: Yes Smoking Status (MU): Former Smoker Type: Cigarettes Amount Used/How Often: 1PPD 30 YRS Length of Time of Smoking/Using Tobacco: 40 Have You Smoked in the Last Year: No Review of Systems Negative: Fever Positive: Other - Positive: swollen tongue Negative: Chest Pain Positive: Other - Positive: dyspnea All Other Systems Reviewed And Are Negative: Yes Physical Exam - Summary Physical Exam Summary: Appearance: Well appearing, no pain distress Skin: warm, dry, reflects adequate perfusion Head/face: normal Eyes: EOMI, TRUPTI ENT: normal, mild swelling of tongue Neck: supple, non-tender Respiratory: CTA, breath sounds present Cardiovascular: irregular, tachy Abdomen: non-tender, soft Bowel: present Musculoskeletal: mild swelling rt lrg, strength/ROM intact Neuro: normal, sensory motor intact, A&Ox3 Triage Information Reviewed: Yes Vital Signs On Initial Exam: Initial Vitals Temp Pulse Resp BP Pulse Ox 97.0 F 140 16 155/110 94 06/30/18 03:46 06/30/18 03:46 06/30/18 03:46 06/30/18 03:46 06/30/18 03:46 Vital Signs Reviewed: Yes Diagnostics - Vital Signs Vital Signs Temp Pulse Resp BP Pulse Ox 06/30/18 03:46 97.0 F 140 16 155/110 94 - Laboratory Result Diagrams: 06/30/18 04:31 06/30/18 04:31 Lab Statement: Any lab studies that have been ordered have been reviewed, and results considered in the medical decision making process. - Radiology CXR Radiology Interpretation Completed By: ED Physician - No acute changes. Pending official radiology report. - EKG 05:17 Cardiac Rate: NL - 126 bpm EKG Rhythm: Atrial Fibrillation Allergic Reaction Course/Dx - Course Course Of Treatment: An 83 y/o female presents to the ED c/o tongue swelling that she claims is an allergic reaction to Gabapentin since 03:00 06/30/2018. Her PE revealed mild tongue swelling. Her CXR was negative. She has a troponin of 0.05. Dx:A-fib with RVR, angioedema, positive troponin. She will be admitted to Dr. Lindsey. Pt is agreeable to this plan. - Diagnoses Differential Diagnosis/HQI/PQRI: Positive: Angioedema, Other - a fib with rvr Provider Diagnoses: Atrial fibrillation with RVR, Angioedema, Troponin I above reference range - Provider Notifications Discussed Care Of Patient With: Irina Lindsey Time Discussed With Above Provider: 06:25 Instructed by Provider To: Admit As Inpatient - Critical Care Time Critical Care Time: 30-74 min Discharge - Sign-Out/Discharge Documenting (check all that apply): Patient Departure - Admit - Discharge Plan Condition: Fair Disposition: ADMITTED TO [facility] - Billing Disposition and Condition Condition: FAIR Disposition: Admitted to [facility] - Attestation Statements Document Initiated by Scribe: Yes Documenting Scribe: Harish Vargas Provider For Whom Scribe is Documenting (Include Credential): Oumar Lo MD Scribe Attestation: Harish Ascencio, scribed for Oumar Lo MD on 06/30/18 at 0641. Scribe Documentation Reviewed: Yes Provider Attestation: The documentation as recorded by the Harish martell accurately reflects the service I personally performed and the decisions made by me, Oumar Lo MD
[2018-06-30 04:44] LABS: ABS Basophils 0.1 10^3/ul (0-0.2); ABS Eosinophils 0.2 10^3/ul (0-0.6); ABS Lymphocytes 2.3 10^3/ul (1.0-4.8); ABS Monocytes 0.6 10^3/ul (0-0.8); ABS Neutrophils 6.1 10^3/ul (1.5-7.7); ABS Nucleated RBC 0 10^3/ul; Eosinophil % 1.9 % (0-6); Hematocrit 43 % (35-47); Hemoglobin 13.8 g/dl (12.0-16.0); Lymphocyte % 24.5 % (25-47); Mean Corpuscular HGB Conc 32 g/dl (31-36); Mean Corpuscular Hemoglobin 30 pg (27-31); Mean Corpuscular Volume 94 fL (80-97); Mean Platelet Volume 9.3 um3 (7.4-10.4); Nucleated Red Blood Cells % 0; Platelet Count 258 10^3/ul (150-450); Red Blood Count 4.58 10^6/ul (4.00-5.40); Red Cell Distribution Width 14 % (10.5-15); White Blood Count 9.3 10^3/ul (3.5-10.8)
[2018-06-30 04:52] LABS: INR 1.03 (0.77-1.02)
[2018-06-30 05:18] LABS: EGFR Non-African American 37.5 (>60)
[2018-06-30] MEDS ORDERED: Diltiazem IV* 5 MG/ML 5 ML VIAL (for loading dose/IV Push) (25 MG) ONE (05:30)
[2018-06-30] MEDS ORDERED: Diltiazem IV* 5 MG/ML 5 ML VIAL (for loading dose/IV Push) (25 MG) IV SLOW PU ONE (05:35)
[2018-06-30] MEDS ORDERED: Diltiazem IV VIAL* 125 MG in NS 0.9% 100 ML* 100 ML IVPB ONE ×2 (06:27→07:42)
[2018-06-30] MEDS ORDERED: NS 0.9% 100 ML* 100 ML ONE (06:38)
[2018-06-30] MEDS ORDERED: Diltiazem DRIP* 100 MG/100 ML ADDV.BAG IVPB ONE ×2 (07:00→08:00)
[2018-06-30] MEDS ORDERED: diPHENhydraMINE IV* 50 MG/ML 1 ml VIAL (BENADRYL) IV SCH (08:00)
[2018-06-30] MEDS ORDERED: fentaNYL PATCH 12 MCG/HR TRANSDERM SCH (08:00)
--- NOTE | 2018-06-30 08:13 | RAD ---
HISTORY: sob COMPARISONS: January 22, 2018 VIEWS: 1: frontal AP view of the chest at 4:32 AM FINDINGS: LINES AND TUBES: None. CARDIOMEDIASTINAL SILHOUETTE: The cardiac silhouette is enlarged. The cardiomediastinal silhouette is otherwise normal for portable technique. PLEURA: The costophrenic angles are sharp. No pleural abnormalities are noted. LUNG PARENCHYMA: There is hyperinflation. ABDOMEN: The upper abdomen is clear. There is no subphrenic gas. BONES AND SOFT TISSUES: No bone or soft tissue abnormalities are noted. IMPRESSION: CARDIOMEGALY. COPD. R0
[2018-06-30] MEDS ORDERED: Levothyroxine TAB* 100 MCG TAB PO SCH (09:00)
[2018-06-30] MEDS: Apixaban* 2.5 MG TAB PO SCH ×2 (09:00→20:02)
[2018-06-30] MEDS ORDERED: Diltiazem DRIP* 100 MG/100 ML ADDV.BAG IVPB SCH (09:00)
[2018-06-30] MEDS ORDERED: Furosemide TAB* 40 MG PO SCH (09:00)
[2018-06-30] MEDS ORDERED: Famotidine IV* 10 MG/ML 2 ML (20 mg) IV SLOW PU SCH (09:00)
[2018-06-30] MEDS: Ferrous Gluconate TAB* 324 MG TAB PO SCH ×2 (09:01→20:06)
[2018-06-30] MEDS: Calcium Carbonate TAB* 1250 MG (CALCIUM 500 MG) PO SCH ×2 (09:02→20:02)
[2018-06-30] MEDS: Famotidine IV* 10 MG/ML 2 ML (20 mg) IV SLOW PU SCH (09:48)
[2018-06-30] MEDS: diPHENhydraMINE PO* 25 MG PO SCH ×3 (09:49→20:02)
--- NOTE | 2018-06-30 10:23 | HP ---
CC: Dr. Dasilva; Dr. Abraham; Dr. Winn * HISTORY AND PHYSICAL: DATE OF ADMISSION: 06/30/18 TIME OF EVALUATION: 7:30 a.m. PRIMARY CARE PROVIDER: Dr. Dasivla. NUTRITION PARTNER: Dr. Abraham. CONSULTING NUTRITION PARTNER: Dr. Winn. CHIEF COMPLAINT: "My tongue was swollen." HISTORY OF PRESENT ILLNESS: Mrs. 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 The patient states she was in her usual state of health yesterday. About a week ago, she was started by her primary care provider on GABAPENTIN 100 mg twice a day for pain. She states that yesterday around 9 a.m., she took two GABAPENTIN because her pain was severe but she felt well during the day. She denies eating any different food or using any other new products. She went to bed in her usual state of health and woke up around 4:00 in the morning from a deep sleep with a sensation that her tongue was swollen. She said she became very anxious as she was scared she was going to suffocate. She states that she lives right on the [facility] and to call an ambulance she would have to come from [place], so she was afraid she will not get there in time, so she had her daughter drive her to the emergency room. As per ED RN note, she was noted to have some slight swelling to the tip of her tongue, but no other signs of mucosal swelling or rash reported. She was observed in the emergency room where she had no difficulty breathing, had improvement of her "thick" tongue, but she was noted to be tachycardic with an irregular heartbeat and EKG revealed atrial fibrillation. The patient states she was last cardioverted in February [address] Nieto and she states that as far as she knows, she has been in sinus rhythm since that time. She denies chest pain. Does have some palpitations, but she thought they were related to anxiety. There is no complaint of dyspnea at this time. PAST MEDICAL HISTORY: 1. Coronary artery disease status post CABG and stent. 2. Paroxysmal atrial fibrillation status post cardioversion in February [address] Nieto. 3. Tachybrady syndrome. 4. Moderate to severe MR and TR. 5. Dynamic outflow tract obstruction. 6. COPD, on nocturnal oxygen. 7. Hypothyroidism. 8. Hyperlipidemia. 9. Osteoporosis with history of vertebral compression fracture. MEDICATIONS: 1. Acetaminophen extra strength 2000 mg p.o. q.6 hours p.r.n. pain. 2. Amiodarone 200 mg p.o. on Sundays, Tuesdays, , Fridays, and Saturdays. 3. Amlodipine 2.5 mg p.o. b.i.d. on Tuesdays, , Fridays, Saturdays, and Sundays. 4. Apixaban 2.5 mg p.o. b.i.d. 5. Calcium carbonate 500 mg p.o. b.i.d. 6. Fentanyl patch 12 mcg topical q.72 hours. 7. Ferrous gluconate 325 mg p.o. b.i.d. 8. Furosemide 40 mg p.o. every other day. 9. GABAPENTIN 100 mg p.o. b.i.d.. 10. Ibandronate 150 mg p.o. monthly. 11. Levothyroxine 100 mcg p.o. q.a.m. 12. Magnesium oxide 800 mg p.o. b.i.d. 13. Potassium chloride 20 mEq p.o. q.a.m. 14. Rosuvastatin 5 mg p.o. at bedtime. ALLERGIES: PLAVIX, DICLOFENAC, PENICILLIN, TICLOPIDINE, and we are now adding GABAPENTIN. FAMILY HISTORY: Mother had Alzheimer's. Father had prostate cancer and in his 70s secondary to complications of hip fracture. SOCIAL HISTORY: The patient was a smoker, she quit smoking 20 years ago. Drinks alcohol occasionally. No drug use. She lives with her daughter and she has an interview at [facility] next week. Surrogate decision maker is her daughter Daria Ramon, phone number is [phone]. REVIEW OF SYSTEMS: A 14-point review of systems was performed and all the pertinent negative and positive findings are in the HPI. PHYSICAL EXAMINATION GENERAL: The patient is a pleasant elderly lady lying in the stretcher in no acute distress. VITAL SIGNS: Temperature 97.0, heart rate is 125, respiratory rate 20, oxygen saturation is 92% on 2 L nasal cannula, blood pressure is 116/70. HEENT: Pupils are equal. Moist mucous membranes. There is no edema of tongue or lips at this time. CHEST: Breath sounds present bilaterally, decreased, with no added sounds. CVS: Normal S1 and S2. Irregularly irregular with systolic murmur. ABDOMEN: Soft, bowel sounds present. EXTREMITIES: No edema. NEUROLOGIC: The patient is alert and oriented x3. She is able to move all 4 extremities, but endorses being very tired as she did not sleep well last night. LABORATORY AND IMAGING DATA: The patient had a CBC that showed WBC of 9.3, hemoglobin of 13.8, hematocrit of 43, platelets of 258,000 with 60% neutrophils. INR was 1.03. Chemistry showed a sodium of 140, potassium 4.9, chloride of 106, bicarb of 27, BUN of 29, creatinine of 1.35, glucose of 115, calcium of 9.2, magnesium of 2.6. LFTs are normal. Troponin was 0.05 x2. BNP was 855. TSH is pending at the time of this dictation. Chest x-ray showed no acute coronary artery disease and an EKG done on 06/30/18 at 5:17 a.m. showed atrial fibrillation with a heart rate of 126 and this is a change when compared to her prior EKG from October 2017. At that time, the patient was in sinus rhythm. ASSESSMENT AND PLAN: Ms. Ramon is an 83-year-old lady with a past medical history of coronary artery disease, paroxysmal atrial fibrillation, moderate to severe mitral regurgitation and tricuspid regurgitation with dynamic outflow tract obstruction, chronic obstructive pulmonary disease, hypothyroidism, hyperlipidemia, osteoporosis who presented to the emergency room with complaints of tongue swelling, likely secondary to an allergic reaction to GABAPENTIN, but also found to be in atrial fibrillation with rapid ventricular rate. 1. Angioedema. The only new medication the patient is taking is GABAPENTIN, so that appears to be the etiology of her presentation. She received steroids in the emergency room with good response, so we are going to continue steroids but also add H1 and H2 blockers. Her edema appears to be resolved at the time of my evaluation, but we will continue to monitor on the telemetry floor. GABAPENTIN was added to her allergy list. 2. Atrial fibrillation with rapid ventricular rate. The patient is under the impression she is in sinus rhythm since her last cardioversion in February 2017. A cardiology consultation was requested with Dr. Winn and at this point she is going to be kept n.p.o. in preparation for possible cardioversion with or without ARACELI depending on Dr. Winn's recommendation. She is on a Cardizem drip for rate control. We will continue her amiodarone and apixaban. 3. Coronary artery disease, appears to be stable at this time. I suspect her mild troponin elevation is secondary to her atrial fibrillation with rapid ventricular rate. The patient will be continued on rosuvastatin. 4. Chronic obstructive pulmonary disease, appears to be stable at this time. 5. DVT prophylaxis. The patient has a score of 3 on the DVT prophylaxis risk assessment guide, and she is on anticoagulation with apixaban. 6. Code status is full. TIME SPENT: Approximately 50 minutes were spent with the patient interview, medical records review, physical examination to complete the admission, more than half of this time was spent [id number] with the patient and coordination of care. [id number]/CPS #: [id number] MTDShorty
[2018-06-30] MEDS ORDERED: Naloxone* 0.4 MG/ML 1 ML VIAL ONE (11:11)
[2018-06-30] MEDS ORDERED: Midazolam* 1 MG/ML 10 ML VIAL (10 MG) ONE (11:11)
[2018-06-30] MEDS ORDERED: fentaNYL* 50 MCG/ML 2 ML VIAL (100 MCG VIAL) ONE (11:11)
[2018-06-30] MEDS ORDERED: Flumazenil* 0.1 MG/ML 5 ML MDV ONE (11:11)
--- NOTE | 2018-06-30 12:26 | CONS ---
CC: Dr. Abraham; Dr. Winn; Dr. Dasilva; Hospitalist Service CARDIOLOGY CONSULT: DATE OF CONSULT: 06/30/18 HISTORY OF PRESENT ILLNESS: I was asked by Dr. Allen from the hospitalist service to see this 83-year-old female patient who presented to the hospital with swelling of the tongue and also some shortness of breath and she was found to be in rapid atrial fibrillation. The patient who followed up with Dr. Abraham from cardiac standpoint has known history of atrial fibrillation before with cardioversion in the past. Last ARACELI was in 2015 that showed no clot in the left atrium or in the left atrial appendage. She has been maintained on Eliquis and amiodarone. She does have known history of COPD with chronic shortness of breath, systemic arterial hypertension, history of cough, hypoxemia , history of coronary artery sclerosis, atrial fibrillation in the past. Her last echocardiogram was on 01/14/18, EF 65% to 70%. There is a severely dilated left atrium, mute-ls-blwrljnizn dilated right atrium, moderate-to- severe mitral insufficiency, and there is mild mitral valve stenosis and as well there is rooqiosr-xv-hpzyst tricuspid insufficiency, moderate pulmonary hypertension. Cardiology consult was further requested because of her rapid atrial fibrillation and consideration for direct current cardioversion as the patient did have this in the past. In speaking to the patient, she does not feel her atrial fibrillation. She is always short of breath. She states her tongue glands were swollen about 4 o'clock in the morning. She states she increased her GABAPENTIN last night and she woke up at about 4 o'clock in the morning with swollen tongue and difficulty breathing. She was hospitalized on the assumption of allergy to GABAPENTIN, allergic reaction. She gives no chest pain, no dizziness, no syncope, no fever, no chills, no nausea or vomiting. No hematochezia, no skin rash, no orthopnea is appreciated. There is no recent pneumonia or bronchitis. PAST MEDICAL HISTORY: Includes: 1. History of mixed valvular disease with significant mitral insufficiency, tricuspid insufficiency. 2. Pulmonary hypertension. 3. COPD. 4. Atrial fibrillation. 5. Systemic arterial hypertension. 6. History of coronary atherosclerosis. PAST SURGICAL HISTORY: Includes: 1. Coronary artery bypass grafting in May 2014, [facility] , robotic RESENDEZ to the LAD, anticipated staged PCI of the ostia not performed. 2. She does have history of knee surgery and left knee replacement in 2011. 3. Cataract removal in 2014. 4. Right elbow fracture in 2014. MEDICATIONS: Her medications as an inpatient include: 1. Amiodarone 200 mg daily. 2. Eliquis 2.5 mg twice a day. 3. She is on Cardizem IV, adjusted to her heart rate. 4. Benadryl 25 mg p.o. q.6 hours. 5. Pepcid IV 20 mg IV daily. 6. She is on fentanyl 12 mcg transdermal every 72 hours. 7. Ferrous 325 mg twice a day. 8. Lasix 40 mg every other day. 9. Synthroid 100 mcg daily. 10. She is on Solu-Medrol 40 mg IV q.12 hours. 11. Fentanyl patch. 12. She is also on Crestor 5 mg daily. ALLERGIES: She is allergic to TICLID, PENICILLIN, GABAPENTIN and CLOPIDOGREL. Her echocardiogram was done recently as mentioned. FAMILY HISTORY: There is no family history of premature coronary artery disease. SOCIAL HISTORY: She is . She lives alone . She is retired. Former smoker, she quit in 1994, consumed 1 glass of wine daily. No history of illicit drug use. REVIEW OF SYSTEMS: Her review of all other systems essentially is negative. PHYSICAL EXAMINATION: She is awake, alert and oriented. She is not in acute distress. Vitals: Her vitals include the following: Her blood pressure is 116 /70, pulse 130, she is in atrial fibrillation, temperature 98.8, respiratory rate 20. Head: Normocephalic, atraumatic head. Ears, Nose and Throat: Essentially benign. Neck: Supple. JVP is not elevated. No carotid bruits. No masses in the neck is appreciated. Chest: Diminished air entry at the bases with some basilar rhonchi. Heart: Tachycardic. Irregularly irregular. S1, S2. No added sounds. No gallops, no rubs. There is a grade 3/6 systolic murmur in the apex. Abdomen: Benign. Positive bowel sounds. No guarding. No rigidity. Extremities: No edema. No cyanosis, no clubbing. Skin exam is normal. Psych: Normal affect and mood. BINDER LOCKSTITCH: No focal deficit is appreciated. DIAGNOSTIC STUDIES/LAB DATA: Her labs showed the following: White blood cell is 9.3, hemoglobin 15.8, hematocrit 43 and platelets 258,000. Chemistry: Sodium 140, potassium 4.9, chloride 106, total CO2 of 27, BUN 29, creatinine 1.35, magnesium 2.6. LFT's normal. Troponin 0.05, 0.05. She had no chest pain. BNP 855 and TSH 12.04 which is significantly elevated. Her chest x-ray was reported to have cardiomegaly and COPD. Her EKG showed the patient to be in rapid atrial fibrillation with heart rate 130 beats per minute. She has Q-waves in V1 and V2, and isolated in lead 3, and she had diffuse ST-T abnormalities but she is tachycardic. IMPRESSION: The patient is 83-year-old female patient with: 1. Presentation that appears to be possible allergic reaction to GABAPENTIN dose increase. 2. Rapid atrial fibrillation. She does have known history of atrial fibrillation before. She had cardioversion in the past. She was on amiodarone and she is on Eliquis. 3. Significantly elevated TSH. She is on Synthroid as an outpatient. 4. Known coronary artery disease status post CABG as outlined in the note. 5. Systemic arterial hypertension. 6. Significant chronic obstructive pulmonary disease. 7. Rueofytv-gg-jtkgjl mitral insufficiency. 8. Sgdtenpw-pz-kawini tricuspid insufficiency and grhnepsi-do-nukrfl pulmonary hypertension. 9. Normal left ventricular systolic function. 10. The patient is allergic to TICLID and PLAVIX and PENICILLIN. 11. Abnormal EKG as described. PLAN: This patient in atrial fibrillation which is known from before, could be related to her elevated TSH or could be related to her acute allergic reaction. At the present time, we are planning direct current cardioversion. She had been maintained on Eliquis on a regular basis, last dose was this morning according to the patient. She had a ARACELI done in 2016 that showed no clot in the left atrium or in the left atrial appendage. Hopefully, she will hold after cardioversion in sinus rhythm. Given that she has significant mitral valve disease and severely dilated left atrium, her chances to hold into normal sinus rhythm probably could be low at the present time. She is to keep potassium more than 4, magnesium more than 2. She is to stay hydrated. I discussed all of the above with the patient. I will discuss with Dr. Allen from the hospitalist service the elevated TSH and adjustment of the dose of her Synthroid. Any further recommendations will be pending her clinical outcome. I answered all her concerns and questions up to her satisfaction. TIME SPENT: More than half of at least 60 to 65 plus minutes was spent in the education and counseling mode, [id number] with the patient explaining the above, and making further recommendations. [id number]/CPS #: [id number] MTDD
[2018-06-30] MEDS: methylPREDNISolone SOD 40 MG* 1 ML VIAL IV SCH (15:46)
--- NOTE | 2018-06-30 16:06 | CARD ---
CC: Dr. Abraham; Dr. Winn; Hospitalist service CARDIOVERSION NOTE: DATE OF PROCEDURE: 06/30/18 PROCEDURE: Direct current cardioversion. INDICATIONS: The patient is an 83-year-old female patient with known history of atrial fibrillation, history of direct current cardioversion in the past. She has been maintained on Eliquis regularly a nd on twice a day basis. She presented to the hospital with rapid atrial fibrillation. Direct curre nt cardioversion was further requested to restore normal sinus rhythm. DESCRIPTION OF PROCEDURE: After informed written consent had been obtained and with continuous blood pressure, pulse oximetry and heart rate monitoring, the patient had received a total dose of Versed 3 mg intravenously and 50 mcg of fentanyl intravenously. A 150 synchronized joules were delivered on ce and successfully converted the patient to normal sinus rhythm. There were no complications and th e patient tolerated the procedure very well. An immediate EKG after cardioversion confirmed the dotty ent to be in normal sinus rhythm with a heart rate 70 beats per minute. CONCLUSION: Successful direct current cardioversion for atrial fibrillation. The patient is in norm al sinus rhythm. There were no complications. [id number]/[facility] #: [id number]
[2018-06-30] MEDS ORDERED: Rosuvastatin (NF) 5 MG TAB PO SCH (18:00)
[2018-06-30] MEDS: fentaNYL Patch Check Q Shift 1 NOTE FOLLOW UP SCH (18:32)
[2018-07-01] MEDS: diPHENhydraMINE PO* 25 MG PO SCH (02:29)
[2018-07-01] MEDS: methylPREDNISolone SOD 40 MG* 1 ML VIAL IV SCH (05:15)
[2018-07-01] MEDS ORDERED: Levothyroxine TAB* 125 MCG TAB PO SCH (06:00)
[2018-07-01] MEDS: fentaNYL Patch Check Q Shift 1 NOTE FOLLOW UP SCH (06:39)
[2018-07-01] MEDS: Ferrous Gluconate TAB* 324 MG TAB PO SCH (07:24)
[2018-07-01] MEDS: Apixaban* 2.5 MG TAB PO SCH (07:24)
[2018-07-01] MEDS: Calcium Carbonate TAB* 1250 MG (CALCIUM 500 MG) PO SCH (07:24)
[2018-07-01] MEDS: Famotidine IV* 10 MG/ML 2 ML (20 mg) IV SLOW PU SCH (07:28)
[2018-07-01] MEDS ORDERED: Amiodarone TAB* 200 MG PO SCH (09:00)
[2018-07-01 11:22] VITALS: BP 120/58
--- NOTE | 2018-07-02 12:24 | DS ---
CC: Cameron Dasilva MD; Pavan Smith MD DISCHARGE SUMMARY: DATE OF ADMISSION: 06/30/18 DATE OF DISCHARGE: 07/01/18 PRIMARY CARE PROVIDER: Cameron Dasilva MD. MY ATTENDING WHILE IN THE HOSPITAL: Pavan Smith MD. PRIMARY DISCHARGE DIAGNOSES: 1. Angioedema of the tongue. 2. Atrial fibrillation with rapid ventricular rate status post cardioversion. SECONDARY DISCHARGE DIAGNOSES: 1. Paroxysmal atrial fibrillation. 2. Obstructive sleep apnea, on nocturnal oxygen. 3. Coronary artery disease, status post CABG and stent. 4. Tachybrady syndrome. 5. [id number] mitral regurgitation, tricuspid regurgitation, dynamic outflow tract obstructi on, chronic obstructive pulmonary disease. 6. Hypothyroidism. 7. Hyperlipidemia. 8. Osteoporosis. STUDIES DONE WHILE IN THE HOSPITAL: Electrocardiogram from 06/30/18 shows atrial fibrillation, early repolarization in V1, V2. Rate of 126, QTc 445. T-wave inversion in lead I, aVL. No other ST segm ent abnormalities. No hypertrophy or enlargement. Repeat EKG from 06/30/18 shows normal sinus rhyth m, consistent T-wave changes to previous exam. These exams are consistent with previous examination from October 2017. Chest x-ray from 06/30/18 read as cardiomegaly, COPD. MEDICATIONS AT DISCHARGE: 1. Levothyroxine 100 mcg p.o. q.a.m. 2. Rosuvastatin 5 mg p.o. q.a.m. 3. Amlodipine 2.5 mg p.o. Thursday, , Thursday, Thursday, Thursday. 4. Ferrous gluconate 325 mg p.o. b.i.d. 5. Magnesium oxide 800 mg p.o. b.i.d. 6. Potassium chloride 20 mEq p.o. q.a.m. 7. Furosemide 40 mg p.o. every other day. 8. Apixaban 2.5 mg p.o. b.i.d. 9. Amiodarone 200 mg p.o. Thursday, Thursday, , Thursday, Thursday. 10. Calcium carbonate 500 mg p.o. b.i.d. 11. Fentanyl patch 12 mcg transdermal q.72 hours. 12. Tylenol 1000 mg p.o. q.6 hours as needed. 13. Ibandronate 150 mg p.o. monthly. 14. Cetirizine 10 mg p.o. daily. 15. Pepcid 20 mg p.o. b.i.d. 16. Prednisone 60 mg with rapid taper. HOSPITAL COURSE: This is a brief summary of the patient's presentation. For more details, please se e history and physical from Dr. Sandra Allen on 06/30/18. In brief, the patient is an 83-year-old female with past medical history significant for the above, who has been to her knowledge out of atri al fibrillation for months since her most recent cardioversion in 2017 who was in her usual state of health, recently had an increase in her gabapentin dose. She went to bed on the day before admission and woke up with her sensation of her tongue swelling which was similar to a previous episode of ang ioedema she had had in relation to an antihypertensive medication she was given. The patient came to the emergency department and was given steroids, H1, H2 blockers with improvement in her sensation o f a thick tongue. The patient was found incidentally to be in atrial fibrillation with RVR, rates in the 130s. The patient was admitted to the hospital. The patient had a slightly elevated troponin w hich was likely demand ischemia from her AFib with RVR. The patient had stable chronic kidney disease and elevated TSH at 12.04 and elevated BNP at 855, which is consistent with previous episode of AFib with RVR. The patient was cardioverted. The patient had been taking her Eliquis consistently. The patient was cardioverted by Dr. Winn on 06/30/18 and returned to normal sinus rhythm which she s tayed in. The patient had no chest pain or shortness of breath. The patient was able to be weaned o ff her oxygen. The patient had no further tachycardia. The patient had no low blood pressure. The patient's sensation of a large tongue continued to improve. The patient had no documented wheezing. The patient was concerned about her pain control and other options for her pain were discussed but n one were initiated while the patient was inpatient. The patient was stable and anxious for discharge on 07/01/18. PHYSICAL EXAMINATION ON DATE OF DISCHARGE: General: The patient is an 83-year-old female, appears s tated age and sitting comfortably in bed, in no acute distress. HEENT: Head: Normocephalic, atrauma tic. Sclerae anicteric. No conjunctival injection. Nasal mucosa moist. Oral mucosa moist. No pha ryngeal erythema, discharge, or exudates. The patient has a small area of red plaque on the base of her tongue and erythema on the tip of her tongue without obvious angioedema. Neck: Supple, nontender . No lymphadenopathy. No carotid bruits auscultated. No JVD. Cardiac: Regular rate and rhythm. N o clicks, murmurs, gallops, rubs. Pulses 2+ bilaterally in dorsalis pedis, posterior tibialis, and r adial areas. Respiratory: Clear to auscultation bilaterally. No wheezes, rales, or rhonchi. Good ai r exchange bilaterally. Abdomen: Soft, nontender, nondistended. Bowels sounds present, normoactive in all 4 quadrants. No hepatosplenomegaly, no abdominal bruits auscultated. No hepatojugular reflu x. Genitourinary: No suprapubic or CVA tenderness. Skin: Clean, dry and intact. No rash. Neuro: Cranial nerves II through XII grossly intact. No focal deficits. Alert and oriented x3. Psychiatr ic: Pleasant and cooperative. DISCHARGE PLAN: The patient will be discharged to home. The patient will be given a short course of steroids with a quick taper and H1, H2 blockers for 3 days a piece to complete a 5-day course of the se medications. The patient will be maintained on her amiodarone which she has been stabilized on fo r a long period of time. The patient should follow up with her primary care provider within 1 week f or general medical management to assess for continued improvement in her allergic reaction and to dis cuss other pain control options. The patient's pain is currently decreased below its recent baseline ; however, it is believed that the gabapentin which the patient has been discontinued on and should n ot be re- challenged was the cause of this. It is discussed with the patient that Lyrica has a chanc e at cross reactivity but that if her pain becomes worse again that she should have discussion with h er primary care doctor about the risks and benefits of Lyrica. The patient should follow up with her otologist, Dr. Ke Abraham to discuss her AFib with RVR and the possibility of long-term magnolia toring to assess for the rhythm control she is getting with her amiodarone. The patient should retur n to the hospital for passing out, chest pain, shortness of breath, severe wheezing, or other alarmin g symptoms. The patient should have a heart-healthy diet without caffeine. The patient should engag e in activities as tolerated. TIME SPENT: Approximately 60 minutes were spent on the discharge of this patient, 30 of which was sp ent [id number] with the patient and obtaining history and physical and discussing treatment plan. CHARLES VIRGEN [id number]/[facility] #: [id number]
== END 2018-07-01 13:05 | disposition home or self-care (01) ==
LOC: ED 03:44 → MEDTELE 07:38
PROVIDERS: ADMIT Internal Medicine; ATTEND Internal Medicine
DX: I48.91 Unspecified atrial fibrillation (principal); I27.20 Pulmonary hypertension, unspecified; R06.02 Shortness of breath; J44.9 Chronic obstructive pulmonary disease, unspecified; I25.10 Atherosclerotic heart disease of native coronary artery without angina pectoris; I08.1 Rheumatic disorders of both mitral and tricuspid valves; Z95.5 Presence of coronary angioplasty implant and graft; R60.0 Localized edema; Z79.01 Long term (current) use of anticoagulants; Z87.891 Personal history of nicotine dependence; R06.00 Dyspnea, unspecified
CPT/HCPCS: 36415; 71045; 80053; 83735; 83880; 84443; 84484; 85025; 85610; 85730; 92960; 93005; 99156; 99283; A9270-GY; G0378; J2250; J2310; J2920; J2930; J3010

== ENCOUNTER → 2018-08-05 14:10 | Emergency (ER) | payer MEDICARE ==
--- NOTE | 2018-08-05 16:55 | ED ---
Complex/Multi-Sys Presentation - HPI Summary HPI Summary: Pt is an 83 y/o female who presents to the ED c/o anxiety. She had an appointment with Dr. Abraham set up, but she was not able to see him because he s out of town. Dr. Silver office told her to go to the ED if she has any symptoms. Pt became anxious and felt like she needed to see a physician, so she came here. While in the waiting room, she became less anxious and was about to leave. She reports a recent compression fracture of her left rib due to COPD. Pt denies any CP, but has some of her usual SOB. Pt had some mild wheezing this morning. She feels like she is getting a cold recently. 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 Negative: Chest Pain - Allergies/Home Medications Allergies/Adverse Reactions: Allergies Allergy/AdvReac Type Severity Reaction Status Date / Time gabapentin Allergy Severe Swelling Verified 06/30/18 08:13 Of Face,Lips,& Throat clopidogrel [From Plavix] Allergy Unknown Verified 06/30/18 03:51 Reaction Details diclofenac [From Voltaren] Allergy Swelling Verified 06/30/18 03:51 Of Face,Lips,& Throat Penicillins Allergy Hives Verified 06/30/18 03:51 ticlopidine [From Ticlid] Allergy Unknown Verified 06/30/18 03:51 Reaction Details Home Medications: Home Medications Albuterol inh POWDER (NF) [Proair Respiclick] 2 puff INH Q6HR PRN 08/05/18 [ History Confirmed 08/05/18] Aspirin EC TAB* [Ecotrin EC Low Dose 81 MG*] 81 mg PO DAILY 08/05/18 [History Confirmed 08/05/18] Ferrous Sulfate TAB* 325 mg PO BID 08/05/18 [History Confirmed 08/05/18] Hydrocodone/Acetaminophen [Haskell 7.5-325 Tablet] 1 tab PO Q6HR PRN 08/05/18 [ History Confirmed 08/05/18] LORazepam TAB(*) [Ativan 1 MG TAB (*)] 1 mg PO BID PRN 08/05/18 [History Confirmed 08/05/18] amLODIPine TAB* [Norvasc 5 mg TAB*] 2.5 mg PO DAILY 08/05/18 [History Confirmed 08/05/18] PMH/Surg Hx/FS Hx/Imm Hx Endocrine/Hematology History: Reports: Hx Anticoagulant Therapy - Eliquis as of 2017, Hx Blood Disorders - Hx acute Leukocytosis, Hx Thyroid Disease - hypothyroidism Denies: Hx Blood Transfusions, Hx Bone Marrow Disease, Hx Diabetes, Hx Systemic Lupus Erythematosus, Hx Sickle Cell Disease, Hx Anemia, Hx Unexplained Bleeding, Other Endocrine/Hematological Disorders Cardiovascular History: Reports: Hx Angioplasty, Hx Cardiomegaly, Hx Congestive Heart Failure, Hx Coronary Artery Disease, Hx Hypercholesterolemia, Hx Hypertension, Hx Myocardial Infarction, Hx Valvular Heart Disease, Other Cardiovascular Problems/Disorders - Hx CHF, PAF, Bilat LE Edema, Denies: Hx Aneurysm, Hx Angina, Hx Auto Implanted Cardiovert Defib, Hx Cardiac Arrest, Hx Congenital Heart Disease, Hx Deep Vein Thrombosis, Hx Embolism, Hx Hypotension, Hx Pacemaker/ICD, Hx Peripheral Vascular Disease, Hx Rheumatic Fever, Hx Syncope Respiratory History: Reports: Hx Chronic Obstructive Pulmonary Disease (COPD) - O2 HS 2L, Hx Pneumonia, Other Respiratory Problems/Disorders - Hx Dyspnea, Denies: Hx Asthma, Hx Chronic Bronchitis, Hx Cystic Fibrosis, Hx Lung Cancer , Hx Pleural Effusion, Hx Pulmonary Edema, Hx Pulmonary Embolism, Hx Seasonal Allergies, Hx Sleep Apnea GI History: Reports: Hx Gall Bladder Disease History: Reports: Other Problems/Disorders - incontinence, Hx Acute kidney injury, Musculoskeletal History: Reports: Hx Back Problems, Hx Osteoporosis - Boniva, stopped several months ago, Other Musculoskeletal History - compression fracture to thoracic spine Denies: Hx Arthritis, Hx Bursitis, Hx Congenital Bone Abnormalities, Hx Fibromyalgia, Hx Gout, Hx Orthopedic Injury, Hx Scoliosis, Hx Tendonitis Sensory History: Reports: Hx Vision Problem Denies: Hx Cataracts, Hx Contacts or Glasses, Hx Eye Injury, Hx Eye Prosthesis, Hx Glaucoma, Hx Legally Blind, Hx Macular Degeneration, Hx Deafness , Hx Hearing Aid, Hx Hearing Problem, Other Sensory Impairments Opthamlomology History: Reports: Hx Vision Problem Denies: Hx Cataracts, Hx Contacts or Glasses, Hx Eye Injury, Hx Eye Prosthesis, Hx Glaucoma, Hx Legally Blind, Hx Macular Degeneration, Other Sensory Impairments Neurological History: Denies: Hx Headaches, Hx Seizures, Hx Transient Ischemic Attacks (TIA) Psychiatric History: Reports: Hx Anxiety, Hx Depression - Cancer History Hx Chemotherapy: No Hx Radiation Therapy: No Hx Palliative Cancer Treatment: No - Surgical History Surgery Procedure, Year, and Place: 2011 LEFT TOTAL KNEE [id number] CARDIAC STENT [id number] CARDIAC STENTS [id number], CABG x1 [place], ROBOTIC CHEST SURGERY 2013 Hx Anesthesia Reactions: No - Immunization History Date of Tetanus Vaccine: unknown Date of Influenza Vaccine: 06/16 Infectious Disease History: No Infectious Disease History: Reports: Hx Hepatitis - Hepatitis 50 years ago Denies: Hx Clostridium Difficile, Hx Human Immunodeficiency Virus (HIV), Hx of Known/Suspected MRSA, Hx Shingles, Hx Tuberculosis, Hx Known/Suspected VRE, Hx Known/Suspected VRSA, History Other Infectious Disease, Traveled Outside the [place] in Last 30 Days - Family History Known Family History: Negative: Cardiac Disease, Hypertension, Diabetes - Social History Alcohol Use: None Alcohol Amount: 4x week Hx Substance Use: No Substance Use Type: Reports: None Hx Tobacco Use: Yes Smoking Status (MU): Former Smoker Type: Cigarettes Amount Used/How Often: 1PPD 30 YRS Length of Time of Smoking/Using Tobacco: 40 Have You Smoked in the Last Year: No Review of Systems Negative: Chest Pain Positive: Shortness Of Breath Positive: Anxious All Other Systems Reviewed And Are Negative: Yes Physical Exam - Summary Physical Exam Summary: VITAL SIGNS: Reviewed. GENERAL: Patient is a well-developed and nourished FEMALE who is lying comfortable in the stretcher. Patient is not in any acute respiratory distress. HEAD AND FACE: No signs of trauma. No ecchymosis, hematomas or skull depressions. No sinus tenderness. EYES: PERRLA, EOMI x 2, No injected conjunctiva, no nystagmus. EARS: Hearing grossly intact. Ear canals and tympanic membranes are within normal limits. MOUTH: Oropharynx within normal limits. NECK: Supple, trachea is midline, no adenopathy, no JVD, no carotid bruit, no c- spine tenderness, neck with full ROM. CHEST: Symmetric, no tenderness at palpation LUNGS: Clear to auscultation bilaterally. No wheezing or crackles. CVS: Regular rate and rhythm, S1 and S2 present, no murmurs or gallops appreciated. ABDOMEN: Soft, non-tender. No signs of distention. No rebound no guarding, and no masses palpated. Bowel sounds are normal. EXTREMITIES: FROM in all major joints, no edema, no cyanosis or clubbing. NEURO: Alert and oriented x 3. No acute neurological deficits. Speech is normal and follows commands. SKIN: Dry and warm Triage Information Reviewed: Yes Vital Signs On Initial Exam: Initial Vitals Temp Pulse Resp BP Pulse Ox 97.7 F 70 20 154/69 94 08/05/18 14:13 08/05/18 14:13 08/05/18 14:13 08/05/18 14:13 08/05/18 14:13 Vital Signs Reviewed: Yes Diagnostics - Vital Signs Vital Signs Temp Pulse Resp BP Pulse Ox 08/05/18 16:22 66 156/78 90 08/05/18 16:01 66 167/87 94 08/05/18 16:00 66 95 08/05/18 15:52 72 188/104 95 08/05/18 15:51 72 93 08/05/18 14:13 97.7 F 70 20 154/69 94 - Laboratory Result Diagrams: 08/05/18 16:41 08/05/18 16:41 Lab Statement: Any lab studies that have been ordered have been reviewed, and results considered in the medical decision making process. - Radiology CXR Radiology Interpretation Completed By: Radiologist Summary of Radiographic Findings: Cardiomegaly with bilateral pleural effusion and right basilar atelectasis as. well as prominent vascular markings which may represent mild vascular congestion. ED physician reviewed radiology report. - EKG 17:43 Cardiac Rate: NL - 67 bpm EKG Rhythm: Sinus Rhythm ST Segment: Normal EKG Comparison: No Significant Change - As compared to 07/01/18 Complex Multi-Symp Course/Dx Assessment/Plan: Pt is an 83 y/o female who presents to the ED c/o anxiety. She had an appointment with Dr. Abraham set up, but she was not able to see him because hes out of town. Dr. Silver office told her to go to the ED if she has any symptoms. Pt became anxious and felt like she needed to see a physician , so she came here. While in the waiting room, she became less anxious and was about to leave. She reports a recent compression fracture of her left rib due to COPD. Pt denies any CP, but has some of her usual SOB. Pt had some mild wheezing this morning. She feels like she is getting a cold recently. Blood work without any significant abnormality except for increased BUN and creatinin. Chest x-ray impression: Cutting medically with bilateral pleural effusions and right basilar atelectasis as well as a prominent vascular markings which may represent [place] vascular congestion. In the ED course the patient is stable she does have any complaints. She denies any chest pain, shortness of breath or palpitations. The patient reports that she came into the emergency department because she was anxious. However the patient has some pleural effusions therefore I believe that the patient would benefit from taking her Lasix. Patient reports that she hasnt taken her Lasix for the last couple days. I discussed all the findings and test results with the patient. Patient was instructed to return to the emergency room immediately if any of the symptoms return or worsens. Plan of care was discussed with the patient and understands and agrees. All questions were answered at patient satisfaction. There were no further complaints or concerns. Lung exam before discharge: CTA B /L. Good air exchange. No wheezing or crackles heard. CVS: S1 and S2 present. No murmurs appreciated. Patient is alert and oriented x 3. Patient is hemodynamically stable. Patient will be discharged home with follow up PCP in the next 2-3 days - Diagnoses Provider Diagnoses: Pleural effusion, Anxiety Discharge - Sign-Out/Discharge Documenting (check all that apply): Patient Departure - Discharge - Discharge Plan Condition: Stable Disposition: HOME Patient Education Materials: Pleural Effusion (ED) Referrals: Cameron Dasilva MD [Primary Care Provider] - 3 Days Additional Instructions: FOLLOW UP WITH YOUR PRIMARY CARE PROVIDER WITHIN ONE WEEK FOR HIGH BLOOD PRESSURE NOTED TODAY. RETURN TO THE ED FOR ANY WORSENING OR NEW SYMPTOMS. - Billing Disposition and Condition Condition: STABLE Disposition: Home - Attestation Statements Document Initiated by Scribe: Yes Documenting Scribe: Patria Orona Provider For Whom Pal[place] is Documenting (Include Credential): Pj Shipman MD Scribe Attestation: Patria Ascencio, [email or web address] for Pj Shipman MD on 08/05/18 at 2058. Scribe Documentation Reviewed: Yes Provider Attestation: The documentation as recorded by the Patria martell accurately reflects the service I personally performed and the decisions made by Pj good MD Status of Scribe Document: Viewed
[2018-08-05 17:02] LABS: Hematocrit 42 % (35-47); Hemoglobin 13.8 g/dl (12.0-16.0); Mean Corpuscular HGB Conc 33 g/dl (31-36); Mean Corpuscular Hemoglobin 30 pg (27-31); Mean Corpuscular Volume 92 fL (80-97); Mean Platelet Volume 9.7 fL (7.4-10.4); Platelet Count 246 10^3/ul (150-450); Red Cell Distribution Width 14 % (10.5-15); White Blood Count 7.8 10^3/ul (3.5-10.8)
[2018-08-05 17:22] LABS: EGFR Non-African American 42.1 (>60)
[2018-08-05 18:05] LABS: ABS Basophils 0.1 10^3/ul (0-0.2); ABS Eosinophils 0.2 10^3/ul (0-0.6); ABS Lymphocytes 1.1 10^3/ul (1.0-4.8); ABS Monocytes 0.4 10^3/ul (0-0.8); ABS Neutrophils 5.9 10^3/ul (1.5-7.7); ABS Nucleated RBC 0 10^3/ul; Eosinophil % 2.5 %; Hematocrit 43 % (35-47); Lymphocyte % 13.9 %; Mean Corpuscular HGB Conc 32 g/dl (31-36); Mean Corpuscular Hemoglobin 30 pg (27-31); Mean Corpuscular Volume 92 fL (80-97); Mean Platelet Volume 9.9 fL (7.4-10.4); Nucleated Red Blood Cells % 0; Platelet Count 260 10^3/ul (150-450); Red Blood Count 4.71 10^6/ul (4.00-5.40); Red Cell Distribution Width 14 % (10.5-15); White Blood Count 7.7 10^3/ul (3.5-10.8)
[2018-08-05 18:13] VITALS: BP 144/67
== END | disposition home or self-care (01) ==
LOC: ED 14:10
DX: J90 Pleural effusion, not elsewhere classified (principal); F41.9 Anxiety disorder, unspecified; I51.7 Cardiomegaly; Z87.891 Personal history of nicotine dependence
CPT/HCPCS: 36415; 71046; 80053; 83605; 85025; 85027; 86140; 93005; 99282; 99283